=== PATIENT | female | born 1985 | race Caucasian/White ===

== ENCOUNTER 2017-02-15 02:05 | Emergency (ER) | payer OTHER ==
[~2017-02-15] VITALS: Ht 157.5 cm; Wt 46.6 kg
[~2017-02-15 02:05] MED LIST: AFEDITAB CR60 MG PO; ALPRAZOLAM0.5 MG PO; AMITRIPTYLINE H50 MG PO; AMLOD-VALSA-HC1 EAC1 PO; AMLODIPINE BESY10 MG PO; ANTACID500 MG PO; APRESOLINE10 MG PO; APRESOLINE100 MG PO; APRESOLINE25 MG PO; APRESOLINE50 MG PO; BACLOFEN10 MG PO; BACTRIM,SEPT1 TABLET PO; BENTYL10 MG PO; BUSPAR15 MG PO; BUSPIRONE HCL7.5 MG PO; CALCITRIOL0.25 MCG PO; CALCITRIOL0.5 MCG PO; CALCIUM 500 MG1 EACH PO; CALCIUM ACETAT667 MG PO; CALCIUM500 M4 PO; CATAPRES-TTS 31 EACH TD; CATAPRES0.3 MG PO; CIPRO500 MG PO; CLONIDINE HCL0.1 MG PO; CLONIDINE HCL0.2 MG PO; CLONIDINE HCL0.3 MG PO; CLONIDINE1 EAC1 TD; CLONIDINE1 EAC2 TD; COMPAZINE10 MG PO; COMPAZINE5 MG PO; COUMADIN5 MG PO; COZAAR100 MG PO; DICYCLOMINE HCL10 MG PO; DILAUDID2 MG PO; ELAVIL50 MG PO; EMLA 30 GM30 GM TP; EMLA CREAM TP; ENDOCET 5-3251 EACH PO; EXTRA STRENGTH500 M1 PO; FLUCONAZOLE150 MG PO; HALDOL5 MG PO; HECTOROL4 MCG/2 M1 IV; HYDRALAZINE HCL10 MG PO; HYDRALAZINE HCL50 MG PO; HYDROMORPHONE HC2 MG PO; INSULIN PUMP SCCONT; KEFLEX500 MG PO; KEPPRA500 MG PO; KRISTALOSE20 GM PO; LABETALOL HCL200 MG PO; LAMICTAL200 MG PO; LAMOTRIGINE200 MG PO; LEVETIRACETAM500 MG PO; LIORESAL10 MG PO; LONITEN2.5 MG PO; LOSARTAN POTAS100 MG PO; METOCLOPRAMIDE10 MG PO; MINOXIDIL2.5 MG PO; NEPHRO-VITE,1 TABLET PO; NICORELIEF4 MG BC; NICOTINE PATCH1 EACH TD; NIFEDIPINE ER60 MG PO; NIFEDIPINE ER90 MG PO; NORMODYNE,TRAN200 MG PO; NORVASC10 MG PO; OFLOXACIN10 M1 BOTH EYES; OMEPRAZOLE40 M1 PO; ONDANSETRON HCL4 MG PO; PERCOCET 5/31 TABLET PO; PREDNISONE10 MG PO; PRILOSEC40 MG PO; PROCARDIA XL90 MG PO; PROCHLORPERAZIN10 MG PO; PROMETHAZINE HC25 M1 PO; PROMETHAZINE12.5 M1 PO; PROVENTIL HFA6.7 GM IH; REGLAN10 MG PO; RENVELA800 MG PO; SENNA8.6 MG PO; SENNA8.8 MG/5 M PO; SENOKOT,SENN1 TABLET PO; SENSIPAR30 MG PO; SENSIPAR60 MG PO; SIMVASTATIN10 MG PO; SIMVASTATIN20 MG PO; TAMSULOSIN HCL0.4 MG PO; TRANDATE200 MG PO; TUMS500 MG PO; TYLENOL EXTRA500 MG PO; TYLENOL PO; VELPHORO500 MG PO; VENOFER100 MG/5 M IV; VENTOLIN HFA18 GM IH; VIMPAT100 MG PO; VIMPAT150 MG PO; VIMPAT50 MG PO; VITAMIN D-32000 UNI2 PO; XANAX0.5 MG PO; ZOCOR20 MG PO; ZOFRAN4 MG PO; ZOFRAN8 MG PO; ZONISAMIDE100 MG PO; ZUPLENZ8 MG PO
[2017-02-15 02:10] VITALS: BP 175/112
[2017-02-15 02:43] LABS: HEMATOCRIT 21.7 % (36.0-46.0); MCH 30.3 PG (29.0-34.0); MCHC 33.2 G/DL (30.0-36.0); MCV 91.2 FL (83-99); MEAN PLAT.VOLUME 8.1 uM^3 (9.5-12.4); PLATELET COUNT 175 K/uL (156-360); RBC DIS.WIDTH-CV 18.6 % (11.8-14.6); RBC DIS.WIDTH-SD 62.3 % (39-53); RED BLOOD COUNT 2.38 M/uL (3.80-5.20); WHITE BLOOD COUNT 7.5 K/uL (4.1-10.2)
[2017-02-15 02:49] LABS: INTER. NORMALIZED RATIO 1.2; PROTHROMBIN TIME 13.6 SEC (10.2-12.9)
[2017-02-15 02:52] LABS: PTT 33.5 SEC (25-37)
[2017-02-15 02:54] LABS: CHLORIDE 100 mEq/L (99-109); POTASSIUM 4.1 mEq/L (3.7-5.4); SODIUM 139 mEq/L (136-147)
[2017-02-15 02:56] LABS: GLUCOSE 126 mg/dL (70-99)
[2017-02-15 02:57] LABS: ANION GAP 12 MEQ/L (2-14)
[2017-02-15 02:58] LABS: TOTAL BILIRUBIN 0.9 mg/dL (0.0-1.0)
[2017-02-15 02:59] LABS: SERUM ETHYL ALCOHOL < 10 mg/dL
[2017-02-15 03:00] LABS: ALKALINE PHOSPHATASE 101 IU/L (3-129); GFR ESTIMATE (CALCULATED) 9 mL/min/
[2017-02-15 03:01] LABS: UREA NITROGEN (BUN) 27 mg/dL (9-23)
[2017-02-15 03:03] LABS: LIPASE 15 U/L (1.0-51.0)
[2017-02-15] MEDS ORDERED: ZOFRAN4 MG PO (03:45)
== END 2017-02-15 06:33 | disposition home or self-care (01) ==
LOC: EME 02:05
PROVIDERS: Emergency Medicine
DX: R10.9 Unspecified abdominal pain (principal); E78.5 Hyperlipidemia, unspecified; K21.9 Gastro-esophageal reflux disease without esophagitis; D64.9 Anemia, unspecified; N18.9 Chronic kidney disease, unspecified; Z94.0 Kidney transplant status; Z99.2 Dependence on renal dialysis; F17.200 Nicotine dependence, unspecified, uncomplicated
CPT/HCPCS: 74176; 80053; 81003; 83690; 85027; 85610; 85730; 99281; 99284; G0480; J1630; J7030

== ENCOUNTER 2017-06-04 01:11 | Inpatient (IN) | payer OTHER ==
[2017-06-04] VITALS (17 sets, daily range): BP systolic 126–189; BP diastolic 67–138
[~2017-06-04] VITALS: Ht 157.5 cm; Wt 40.6 kg
[~2017-06-04 01:11] MED LIST changes: +AVENTYL,PAMELOR25 MG PO; +LABETALOL HCL300 MG PO; +LIDOCAINE5 GM TP; +ONDANSETRON HCL8 MG PO; +OXYCODONE HCL5 MG PO; +PEPCID20 MG PO; +PHOSLYRA667 MG/5 M PO
[2017-06-04 01:45] LABS: HEMATOCRIT 26.5 % (36.0-46.0); MCH 31.5 PG (29.0-34.0); MCHC 33.2 G/DL (30.0-36.0); MEAN PLAT.VOLUME 9.2 uM^3 (9.5-12.4); RBC DIS.WIDTH-CV 15.7 % (11.8-14.6); RBC DIS.WIDTH-SD 54.4 % (39-53); RED BLOOD COUNT 2.79 M/uL (3.80-5.20); WHITE BLOOD COUNT 11.7 K/uL (4.1-10.2)
[2017-06-04 01:49] LABS: PLATELET COUNT 286 K/uL (156-360)
[2017-06-04 01:54] LABS: CHLORIDE 83 mEq/L (99-109); POTASSIUM 5.5 mEq/L (3.7-5.4); SODIUM 136 mEq/L (136-147)
[2017-06-04 01:56] LABS: GLUCOSE 133 mg/dL (70-99)
[2017-06-04 01:57] LABS: ANION GAP 26 MEQ/L (2-14)
[2017-06-04 01:58] LABS: TOTAL BILIRUBIN 1.5 mg/dL (0.0-1.0)
[2017-06-04 02:00] LABS: ALKALINE PHOSPHATASE 102 IU/L (3-129); GFR ESTIMATE (CALCULATED) 5 mL/min/
[2017-06-04 02:01] LABS: UREA NITROGEN (BUN) 81 mg/dL (9-23)
[2017-06-04 02:08] LABS: QUANTITATIVE HCG < 4.0 MIU/ML
[2017-06-04 02:16] LABS: MAGNESIUM 2.6 mg/dL (1.3-2.7)
[2017-06-04 02:23] LABS: INTER. NORMALIZED RATIO 1.3; PROTHROMBIN TIME 14.5 SEC (10.2-12.9)
[2017-06-04 15:06] LABS: METH RESISTANT S AUREUS PCR NEGATIVE (NEGATIVE)
[2017-06-04 15:15] LABS: PROBE CHECK PASS; SPECIMEN PROCESSING CONTROL PASS
[2017-06-05] VITALS (23 sets, daily range): BP systolic 119–202; BP diastolic 76–138
[2017-06-05 06:48] LABS: ANION GAP 17 MEQ/L (2-14); CHLORIDE 91 MEQ/L (99-109); GFR ESTIMATE (CALCULATED) 11 mL/min/; GLUCOSE 80 mg/dL (70-99); POTASSIUM 4.1 MEQ/L (3.7-5.4); SAMPLE HEMOLYSIS CHECK 0; SAMPLE ICTERIC CHECK 0; SAMPLE LIPEMIA CHECK 0; SODIUM 136 MEQ/L (136-147); UREA NITROGEN (BUN) 39 mg/dL (9-23)
[2017-06-05 09:32] LABS: INTER. NORMALIZED RATIO 1.2; PROTHROMBIN TIME 13.9 SEC (10.2-12.9)
[2017-06-05 11:42] LABS: HBSG INDEX 0.27
[2017-06-06 06:34] LABS: ANION GAP 15 MEQ/L (2-14); CHLORIDE 88 MEQ/L (99-109); GFR ESTIMATE (CALCULATED) 7 mL/min/; GLUCOSE 89 mg/dL (70-99); POTASSIUM 4.3 MEQ/L (3.7-5.4); SAMPLE HEMOLYSIS CHECK 0; SAMPLE ICTERIC CHECK 0; SAMPLE LIPEMIA CHECK 0; SODIUM 131 MEQ/L (136-147); UREA NITROGEN (BUN) 59 mg/dL (9-23)
[2017-06-06 07:51] VITALS: BP 94/53
[2017-06-06 08:59] VITALS: BP 124/64
[2017-06-06 11:20] VITALS: BP 127/61
== END 2017-06-06 14:39 | disposition home or self-care (01) | DRG 304 ==
LOC: EME 01:11 → 4WEST 07:29 → EDOF 07:29 → ENRESERV 07:34 → 4WEST 13:36 → ENRESERV 06-05 16:33 → 5EAST 06-05 20:22 → ENPENDDIS 06-06 → 5EAST 06-06 14:39
PROVIDERS: Family Medicine; Internal Medicine Critical Care Medicine; Internal Medicine Nephrology; Surgery
PROC: 5A1D70Z Performance of Urinary Filtration, Intermittent, Less than 6 Hours Per Day (ICD-10-PCS; principal; 2017-06-04)
DX: I16.1 Hypertensive emergency (principal); N18.6 End stage renal disease; T86.12 Kidney transplant failure; M31.7 Microscopic polyangiitis; F33.9 Major depressive disorder, recurrent, unspecified; F17.210 Nicotine dependence, cigarettes, uncomplicated; I12.0 Hypertensive chronic kidney disease with stage 5 chronic kidney disease or end stage renal disease; Y83.0 Surgical operation with transplant of whole organ as the cause of abnormal reaction of the patient, or of later complication, without mention of misadventure at the time of the procedure; D63.1 Anemia in chronic kidney disease; E83.39 Other disorders of phosphorus metabolism; E11.22 Type 2 diabetes mellitus with diabetic chronic kidney disease; D50.9 Iron deficiency anemia, unspecified; K31.84 Gastroparesis; E11.43 Type 2 diabetes mellitus with diabetic autonomic (poly)neuropathy; E78.5 Hyperlipidemia, unspecified; G89.29 Other chronic pain; I48.91 Unspecified atrial fibrillation; I51.7 Cardiomegaly; I87.8 Other specified disorders of veins; K21.9 Gastro-esophageal reflux disease without esophagitis; F41.9 Anxiety disorder, unspecified; G43.909 Migraine, unspecified, not intractable, without status migrainosus; R00.0 Tachycardia, unspecified; R01.1 Cardiac murmur, unspecified; G40.909 Epilepsy, unspecified, not intractable, without status epilepticus; E86.0 Dehydration; E87.5 Hyperkalemia; Z99.2 Dependence on renal dialysis; Z91.15 Patient's noncompliance with renal dialysis; Z88.1 Allergy status to other antibiotic agents; Z86.718 Personal history of other venous thrombosis and embolism; Z83.3 Family history of diabetes mellitus; Z90.49 Acquired absence of other specified parts of digestive tract
CPT/HCPCS: 70450; 71010; 80048; 80053; 83735; 84100; 84702; 85027; 85610; 87340; 87641; 93005; 99281; 99285; C1753; J0360; J0610; J1644; J2270; J2405; J3010; J7050

== ENCOUNTER 2017-06-09 11:38 | Inpatient (IN) | payer OTHER ==
[~2017-06-09] VITALS: Ht 157.5 cm; Wt 43.1 kg
[2017-06-09 15:06] LABS: EOSINOPHIL (%) 1.8 % (0-5); EOSINOPHIL COUNT 0.1 K/uL (0-0.3); HEMATOCRIT 21.9 % (36.0-46.0); IMMATURE GRANULOCYTE (%) 0.3 % (0.0-0.7); INSTRUMENT ABS NEUTROPHIL CT 4.4 K/uL; LYMPHOCYTE COUNT 1.2 K/uL (1.0-2.8); MCHC 32.9 G/DL (30.0-36.0); MCV 94.4 FL (83-99); MONOCYTE (%) 9.6 % (3-12); MONOCYTE COUNT 0.6 K/uL (0-0.8); NEUTROPHIL (%) 69.2 % (45-76); NEUTROPHIL COUNT 4.4 K/uL (1.8-6.4); RBC DIS.WIDTH-CV 15.2 % (11.8-14.6); RBC DIS.WIDTH-SD 52.3 % (39-53); RED BLOOD COUNT 2.32 M/uL (3.80-5.20); WHITE BLOOD COUNT 6.3 K/uL (4.1-10.2)
[2017-06-09 15:38] LABS: ALKALINE PHOSPHATASE 106 IU/L (3-129); ANION GAP 22 MEQ/L (2-14); CHLORIDE 86 MEQ/L (99-109); GLUCOSE 82 mg/dL (70-99); SAMPLE HEMOLYSIS CHECK 0; SAMPLE ICTERIC CHECK 0; SAMPLE LIPEMIA CHECK 0; SODIUM 134 MEQ/L (136-147); TOTAL BILIRUBIN 0.6 MG/DL (0.0-1.0)
[2017-06-09 15:50] LABS: HEMATOLOGY COMMENT 1 SN; MEAN PLAT.VOLUME 9.3 uM^3 (9.5-12.4); PLAT.SUFFICIENCY ADEQUATE
[2017-06-09 15:51] LABS: PLATELET COUNT 186 K/uL (156-360)
[2017-06-09 15:56] LABS: GFR ESTIMATE (CALCULATED) 4 mL/min/; POTASSIUM 6.3 MEQ/L (3.7-5.4); UREA NITROGEN (BUN) 94 mg/dL (9-23)
[2017-06-10] VITALS (22 sets, daily range): BP systolic 125–206; BP diastolic 76–118
[2017-06-10 04:54] LABS: METH RESISTANT S AUREUS PCR NEGATIVE (NEGATIVE)
[2017-06-10 04:55] LABS: PROBE CHECK PASS; SPECIMEN PROCESSING CONTROL PASS
[2017-06-10 06:07] LABS: HEMATOCRIT 21.3 % (36.0-46.0); MCH 31.6 PG (29.0-34.0); MCHC 33.3 G/DL (30.0-36.0); MCV 94.7 FL (83-99); PLATELET COUNT 200 K/uL (156-360); RBC DIS.WIDTH-SD 52.5 % (39-53); RED BLOOD COUNT 2.25 M/uL (3.80-5.20); WHITE BLOOD COUNT 7.3 K/uL (4.1-10.2)
[2017-06-10 06:34] LABS: ANION GAP 26 MEQ/L (2-14); CHLORIDE 87 MEQ/L (99-109); GFR ESTIMATE (CALCULATED) 3 mL/min/; GLUCOSE 85 mg/dL (70-99); MAGNESIUM 2.5 mg/dl (1.3-2.7); POTASSIUM 6.2 MEQ/L (3.7-5.4); SAMPLE HEMOLYSIS CHECK 0; SAMPLE ICTERIC CHECK 0; SAMPLE LIPEMIA CHECK 0; SODIUM 136 MEQ/L (136-147); UREA NITROGEN (BUN) 100 mg/dL (9-23)
[2017-06-10] MEDS ORDERED: NIFEDIPINE ER60 MG PO (14:21)
[2017-06-10] MEDS ORDERED: HYDRALAZINE HCL25 MG PO (14:21)
[2017-06-10] MEDS ORDERED: XANAX0.5 MG PO (14:22)
[2017-06-10] MEDS ORDERED: LAMICTAL200 MG PO (14:22)
[2017-06-10] MEDS ORDERED: OMEPRAZOLE40 M1 PO (14:22)
[2017-06-10] MEDS ORDERED: ZOFRAN8 MG PO (14:22)
[2017-06-10] MEDS ORDERED: NORMODYNE,TRAN300 MG PO (14:23)
[2017-06-10] MEDS ORDERED: COMPAZINE5 MG PO (14:23)
[2017-06-10] MEDS ORDERED: NORTRIPTYLINE H25 MG PO (14:24)
[2017-06-10] MEDS ORDERED: PHOSLYRA667 MG/5 M PO (14:24)
[2017-06-10] MEDS ORDERED: COZAAR100 MG PO (14:25)
[2017-06-10] MEDS ORDERED: WARFARIN SODIUM5 MG PO (14:25)
[2017-06-10] MEDS ORDERED: PEPCID20 MG PO (14:25)
[2017-06-10] MEDS ORDERED: ROXICODONE5 MG PO (14:26)
[2017-06-11] VITALS (21 sets, daily range): BP systolic 0–165; BP diastolic 0–103
[2017-06-11 15:32] LABS: ANION GAP 12 MEQ/L (2-14); GLUCOSE 126 mg/dL (70-99); SAMPLE HEMOLYSIS CHECK 0; SAMPLE ICTERIC CHECK 0; SAMPLE LIPEMIA CHECK 0; SODIUM 136 MEQ/L (136-147)
[2017-06-11 15:41] LABS: CHLORIDE 97 MEQ/L (99-109); GFR ESTIMATE (CALCULATED) 9 mL/min/; POTASSIUM 4.1 MEQ/L (3.7-5.4); UREA NITROGEN (BUN) 24 mg/dL (9-23)
[2017-06-12] VITALS (16 sets, daily range): BP systolic 0–148; BP diastolic 0–104
[2017-06-12 11:10] LABS: HBSG INDEX 0.21
== END 2017-06-12 16:53 | disposition left against medical advice (07) | DRG 304 ==
LOC: EME 11:38 → 4WEST 21:49 → EDOF 21:49 → 4WEST 21:49 → ENRESERV 21:51 → 4WEST 06-10 03:31 → ENRESERV 06-12 15:09 → CANRESERV 06-12 15:36 → ENRESERV 06-12 15:36 → 4WEST 06-12 16:53
PROVIDERS: Emergency Medicine; Internal Medicine Nephrology; Obstetrics & Gynecology
PROC: 5A1D70Z Performance of Urinary Filtration, Intermittent, Less than 6 Hours Per Day (ICD-10-PCS; principal; 2017-06-10)
DX: I16.0 Hypertensive urgency (principal); N18.6 End stage renal disease; I16.1 Hypertensive emergency; M31.7 Microscopic polyangiitis; E11.43 Type 2 diabetes mellitus with diabetic autonomic (poly)neuropathy; R64 Cachexia; F33.9 Major depressive disorder, recurrent, unspecified; R57.9 Shock, unspecified; T86.12 Kidney transplant failure; Z68.1 Body mass index [BMI] 19.9 or less, adult; Z94.0 Kidney transplant status; K31.84 Gastroparesis; I48.2 Chronic atrial fibrillation; I12.0 Hypertensive chronic kidney disease with stage 5 chronic kidney disease or end stage renal disease; G89.29 Other chronic pain; E87.5 Hyperkalemia; E78.5 Hyperlipidemia, unspecified; E11.22 Type 2 diabetes mellitus with diabetic chronic kidney disease; D63.1 Anemia in chronic kidney disease; G43.A0 Cyclical vomiting, in migraine, not intractable; F41.9 Anxiety disorder, unspecified; K21.9 Gastro-esophageal reflux disease without esophagitis; G43.909 Migraine, unspecified, not intractable, without status migrainosus; F17.210 Nicotine dependence, cigarettes, uncomplicated; Z91.15 Patient's noncompliance with renal dialysis; Z79.4 Long term (current) use of insulin; Z90.49 Acquired absence of other specified parts of digestive tract; Z99.2 Dependence on renal dialysis; Z91.19 Patient's noncompliance with other medical treatment and regimen; Z83.3 Family history of diabetes mellitus
CPT/HCPCS: 71010; 80048; 80053; 80069; 83735; 84100; 85025; 85027; 86850; 86900; 86901; 87340; 87641; 93005; 99281; 99285; C1751; C1753; J0360; J0610; J0881; J1270; J1630; J1756; J2270; J2405; J7050; S0028

== ENCOUNTER 2017-06-16 15:11 | Inpatient (IN) | payer OTHER ==
[~2017-06-16] VITALS: Ht 157.5 cm; Wt 49.3 kg
[~2017-06-16 15:11] MED LIST changes: +HYDRALAZINE HCL25 MG PO; +NORMODYNE,TRAN300 MG PO; +NORTRIPTYLINE H25 MG PO; +ROXICODONE5 MG PO; +WARFARIN SODIUM5 MG PO
[2017-06-16 18:15] LABS: HEMATOCRIT 19.6 % (36.0-46.0); MCH 31.5 PG (29.0-34.0); MCHC 32.1 G/DL (30.0-36.0); MEAN PLAT.VOLUME 8.7 uM^3 (9.5-12.4); PLATELET COUNT 235 K/uL (156-360); RBC DIS.WIDTH-CV 15.1 % (11.8-14.6); RBC DIS.WIDTH-SD 53.6 % (39-53); WHITE BLOOD COUNT 8.4 K/uL (4.1-10.2)
[2017-06-16 18:17] LABS: CHLORIDE 91 mEq/L (99-109); SODIUM 142 mEq/L (136-147)
[2017-06-16 18:20] LABS: GLUCOSE 104 mg/dL (70-99)
[2017-06-16 18:21] LABS: ANION GAP 11 MEQ/L (2-14)
[2017-06-16 18:22] LABS: TOTAL BILIRUBIN 0.5 mg/dL (0.0-1.0)
[2017-06-16 18:23] LABS: ALKALINE PHOSPHATASE 102 IU/L (3-129)
[2017-06-16 18:27] LABS: LIPASE 9 U/L (1.0-51.0)
[2017-06-16 18:33] LABS: QUANTITATIVE HCG < 4.0 MIU/ML
[2017-06-16 18:35] LABS: GFR ESTIMATE (CALCULATED) 32 mL/min/; POTASSIUM 3.1 mEq/L (3.7-5.4); UREA NITROGEN (BUN) 4 mg/dL (9-23)
[2017-06-16 20:42] VITALS: BP 245/129
[2017-06-16 21:01] VITALS: BP 235/122
[2017-06-16 22:01] VITALS: BP 224/130
[2017-06-16 23:01] VITALS: BP 236/128
[2017-06-17] VITALS (10 sets, daily range): BP systolic 172–209; BP diastolic 90–120
[2017-06-17 01:55] LABS: INTER. NORMALIZED RATIO 1.2; PROTHROMBIN TIME 13.1 SEC (10.2-12.9)
[2017-06-17 10:55] LABS: IRON 62 MCG/DL (35-150)
[2017-06-17 18:39] LABS: HEMATOCRIT 24.8 % (36.0-46.0); MCH 30.6 PG (29.0-34.0); MCHC 31.9 G/DL (30.0-36.0); MCV 96.1 FL (83-99); MEAN PLAT.VOLUME 8.8 uM^3 (9.5-12.4); PLATELET COUNT 197 K/uL (156-360); RBC DIS.WIDTH-SD 55.8 % (39-53); WHITE BLOOD COUNT 6.9 K/uL (4.1-10.2)
[2017-06-17 18:46] LABS: RED BLOOD COUNT 2.58 M/uL (3.80-5.20)
[2017-06-18 04:43] VITALS: BP 158/74
[2017-06-18 07:47] VITALS: BP 165/94
[2017-06-18 12:35] VITALS: BP 170/73
[2017-06-18 13:35] LABS: HEMATOCRIT 23.4 % (36.0-46.0); MCH 31.1 PG (29.0-34.0); MCHC 32.5 G/DL (30.0-36.0); MCV 95.9 FL (83-99); PLATELET COUNT 178 K/uL (156-360); RBC DIS.WIDTH-CV 15.8 % (11.8-14.6); RBC DIS.WIDTH-SD 53.9 % (39-53); RED BLOOD COUNT 2.44 M/uL (3.80-5.20); WHITE BLOOD COUNT 5.9 K/uL (4.1-10.2)
[2017-06-18 13:50] LABS: ANION GAP 11 MEQ/L (2-14); CHLORIDE 90 MEQ/L (99-109); POTASSIUM 3.7 MEQ/L (3.7-5.4); SAMPLE HEMOLYSIS CHECK 0; SAMPLE ICTERIC CHECK 0; SAMPLE LIPEMIA CHECK 0
[2017-06-18 13:55] LABS: GLUCOSE 118 mg/dL (70-99); UREA NITROGEN (BUN) 19 mg/dL (9-23)
[2017-06-18 14:20] LABS: GFR ESTIMATE (CALCULATED) 11 mL/min/; SODIUM 134 MEQ/L (136-147)
[2017-06-18 15:12] LABS: INTER. NORMALIZED RATIO 1.3; PROTHROMBIN TIME 14.4 SEC (10.2-12.9)
[2017-06-18 17:20] VITALS: BP 166/91
[2017-06-18 17:47] VITALS: BP 164/76
== END 2017-06-18 18:03 | disposition home health service (06) | DRG 304 ==
LOC: EME 15:11 → EDOF 22:33 → ENRESERV 22:34 → CANRESERV 22:34 → EDOF 22:39 → 4EAST 22:39 → EDOF 22:39 → ENRESERV 22:41 → 4EAST 06-17 02:24
PROVIDERS: Hospitalist; Internal Medicine
PROC: 5A1D70Z Performance of Urinary Filtration, Intermittent, Less than 6 Hours Per Day (ICD-10-PCS; principal; 2017-06-18)
DX: I16.0 Hypertensive urgency (principal); N18.6 End stage renal disease; J81.0 Acute pulmonary edema; N25.81 Secondary hyperparathyroidism of renal origin; E87.1 Hypo-osmolality and hyponatremia; R18.8 Other ascites; T86.12 Kidney transplant failure; F33.9 Major depressive disorder, recurrent, unspecified; I12.0 Hypertensive chronic kidney disease with stage 5 chronic kidney disease or end stage renal disease; K31.84 Gastroparesis; G89.29 Other chronic pain; I48.2 Chronic atrial fibrillation; E11.43 Type 2 diabetes mellitus with diabetic autonomic (poly)neuropathy; E11.22 Type 2 diabetes mellitus with diabetic chronic kidney disease; D63.1 Anemia in chronic kidney disease; Y83.0 Surgical operation with transplant of whole organ as the cause of abnormal reaction of the patient, or of later complication, without mention of misadventure at the time of the procedure; F17.210 Nicotine dependence, cigarettes, uncomplicated; E83.39 Other disorders of phosphorus metabolism; K21.9 Gastro-esophageal reflux disease without esophagitis; K29.70 Gastritis, unspecified, without bleeding; K52.89 Other specified noninfective gastroenteritis and colitis; G40.909 Epilepsy, unspecified, not intractable, without status epilepticus; E87.6 Hypokalemia; E78.5 Hyperlipidemia, unspecified; F41.9 Anxiety disorder, unspecified; Z99.2 Dependence on renal dialysis; Z91.14 Patient's other noncompliance with medication regimen; Z79.01 Long term (current) use of anticoagulants; Z79.891 Long term (current) use of opiate analgesic; Z86.718 Personal history of other venous thrombosis and embolism; Z88.8 Allergy status to other drugs, medicaments and biological substances; Z91.19 Patient's noncompliance with other medical treatment and regimen; Z90.49 Acquired absence of other specified parts of digestive tract; Z88.1 Allergy status to other antibiotic agents; Z83.3 Family history of diabetes mellitus
CPT/HCPCS: 74020; 74176; 80048; 80053; 81003; 83540; 83690; 84100; 84466; 84702; 85027; 85610; 86850; 86900; 86901; 86920; 99281; 99285; C9113; J0360; J0881; J1630; J2060; J2270; J2405; J7030; J7050; P9016

== ENCOUNTER 2017-06-24 12:19 | Inpatient (IN) | payer OTHER ==
[~2017-06-24] VITALS: Ht 157.5 cm; Wt 43.7 kg
[2017-06-24 15:13] LABS: CHLORIDE 92 mEq/L (99-109); POTASSIUM 4.4 mEq/L (3.7-5.4)
[2017-06-24 15:14] LABS: SODIUM 142 mEq/L (136-147)
[2017-06-24 15:15] LABS: GLUCOSE 124 mg/dL (70-99)
[2017-06-24 15:16] LABS: ANION GAP 13 MEQ/L (2-14)
[2017-06-24 15:17] LABS: TOTAL BILIRUBIN 0.7 mg/dL (0.0-1.0)
[2017-06-24 15:18] LABS: ALKALINE PHOSPHATASE 110 IU/L (3-129)
[2017-06-24 15:19] LABS: GFR ESTIMATE (CALCULATED) 13 mL/min/
[2017-06-24 15:20] LABS: UREA NITROGEN (BUN) 16 mg/dL (9-23)
[2017-06-24 15:22] LABS: LIPASE 6 U/L (1.0-51.0)
[2017-06-24 15:28] LABS: TROP-I INTERPRETATION NEGATIVE; TROPONIN-I < 0.01 ng/mL (0.0-0.30)
[2017-06-24 15:29] LABS: EOSINOPHIL (%) 1.2 % (0-5); EOSINOPHIL COUNT 0.1 K/uL (0-0.3); HEMATOCRIT 27.3 % (36.0-46.0); IMMATURE GRANULOCYTE (%) 0.5 % (0.0-0.7); INSTRUMENT ABS NEUTROPHIL CT 4.3 K/uL; LYMPHOCYTE COUNT 0.9 K/uL (1.0-2.8); MCH 30.8 PG (29.0-34.0); MCHC 31.1 G/DL (30.0-36.0); MCV 98.9 FL (83-99); MONOCYTE (%) 8.9 % (3-12); MONOCYTE COUNT 0.5 K/uL (0-0.8); NEUTROPHIL (%) 72.8 % (45-76); NEUTROPHIL COUNT 4.3 K/uL (1.8-6.4); NRBC (%) 0.3 /100 WBC (0-0); PLATELET COUNT 211 K/uL (156-360); RBC DIS.WIDTH-CV 16.7 % (11.8-14.6); RBC DIS.WIDTH-SD 59.3 % (39-53); RED BLOOD COUNT 2.76 M/uL (3.80-5.20); WHITE BLOOD COUNT 5.9 K/uL (4.1-10.2)
[2017-06-24 15:54] LABS: INTER. NORMALIZED RATIO 1.2; PROTHROMBIN TIME 13.2 SEC (10.2-12.9)
[2017-06-24 15:57] LABS: PTT 25.3 SEC (25-37)
[2017-06-25] VITALS (16 sets, daily range): BP systolic 109–203; BP diastolic 67–126
[2017-06-25 02:44] LABS: METH RESISTANT S AUREUS PCR NEGATIVE (NEGATIVE)
[2017-06-25 02:58] LABS: PROBE CHECK PASS; SPECIMEN PROCESSING CONTROL PASS
[2017-06-25 05:44] LABS: INTER. NORMALIZED RATIO 1.1; PROTHROMBIN TIME 13.1 SEC (10.2-12.9)
[2017-06-25 14:33] LABS: EOSINOPHIL (%) 2.7 % (0-5); EOSINOPHIL COUNT 0.1 K/uL (0-0.3); HEMATOCRIT 22.9 % (36.0-46.0); IMMATURE GRANULOCYTE (%) 0.2 % (0.0-0.7); INSTRUMENT ABS NEUTROPHIL CT 3.3 K/uL; LYMPHOCYTE COUNT 1.2 K/uL (1.0-2.8); MONOCYTE (%) 9.4 % (3-12); MONOCYTE COUNT 0.5 K/uL (0-0.8); NEUTROPHIL (%) 63.9 % (45-76); NEUTROPHIL COUNT 3.3 K/uL (1.8-6.4); PLATELET COUNT 197 K/uL (156-360); RBC DIS.WIDTH-CV 16.9 % (11.8-14.6); RED BLOOD COUNT 2.29 M/uL (3.80-5.20); WHITE BLOOD COUNT 5.1 K/uL (4.1-10.2)
[2017-06-25 14:50] LABS: ANION GAP 9 MEQ/L (2-14); CHLORIDE 91 MEQ/L (99-109); GFR ESTIMATE (CALCULATED) 10 mL/min/; GLUCOSE 107 mg/dL (70-99); POTASSIUM 4.6 MEQ/L (3.7-5.4); SAMPLE HEMOLYSIS CHECK 0; SAMPLE ICTERIC CHECK 0; SAMPLE LIPEMIA CHECK 0; SODIUM 136 MEQ/L (136-147); UREA NITROGEN (BUN) 22 mg/dL (9-23)
[2017-06-26 05:44] VITALS: BP 170/87
[2017-06-26 06:48] LABS: INTER. NORMALIZED RATIO 1.2; PROTHROMBIN TIME 13.5 SEC (10.2-12.9)
[2017-06-26 07:53] VITALS: BP 123/67
[2017-06-26 11:05] VITALS: BP 157/91
[2017-06-26] MEDS ORDERED: ROXICODONE5 MG PO (11:41)
== END 2017-06-26 13:02 | disposition home or self-care (01) | DRG 304 ==
LOC: EME 12:19 → 4WEST 06-25 00:01 → EDOF 06-25 00:01 → ENRESERV 06-25 00:04 → 4WEST 06-25 01:18 → CANRESERV 06-25 13:09 → ENRESERV 06-25 13:09 → 4WEST 06-25 15:58 → 3EAST 06-25 17:09
PROVIDERS: Internal Medicine; Internal Medicine Critical Care Medicine; Physician Assistant
PROC: 05HY33Z Insertion of Infusion Device into Upper Vein, Percutaneous Approach (ICD-10-PCS; principal; 2017-06-25)
DX: I16.1 Hypertensive emergency (principal); J81.0 Acute pulmonary edema; N18.6 End stage renal disease; I12.0 Hypertensive chronic kidney disease with stage 5 chronic kidney disease or end stage renal disease; F17.200 Nicotine dependence, unspecified, uncomplicated; E87.3 Alkalosis; K31.84 Gastroparesis; G40.909 Epilepsy, unspecified, not intractable, without status epilepticus; F41.9 Anxiety disorder, unspecified; J81.1 Chronic pulmonary edema; I48.91 Unspecified atrial fibrillation; D50.9 Iron deficiency anemia, unspecified; D63.1 Anemia in chronic kidney disease; N25.81 Secondary hyperparathyroidism of renal origin; G89.29 Other chronic pain; E78.5 Hyperlipidemia, unspecified; K21.9 Gastro-esophageal reflux disease without esophagitis; F32.9 Major depressive disorder, single episode, unspecified; Z99.2 Dependence on renal dialysis; Z83.3 Family history of diabetes mellitus; Z86.718 Personal history of other venous thrombosis and embolism; Z94.0 Kidney transplant status; Z91.14 Patient's other noncompliance with medication regimen
CPT/HCPCS: 71010; 71020; 74176; 80053; 80069; 81003; 83690; 84484; 85025; 85610; 85730; 87641; 93005; 99281; 99285; C1751; J0780; J0881; J1270; J1644; J1756; J2270; J2405; J7050

== ENCOUNTER 2017-06-30 15:27 | Inpatient (IN) | payer OTHER ==
[~2017-06-30] VITALS: Ht 144.8 cm; Wt 41.8 kg
[2017-06-30 18:27] LABS: HEMATOCRIT 24.5 % (36.0-46.0); MCH 30.8 PG (29.0-34.0); MCHC 31.4 G/DL (30.0-36.0); MEAN PLAT.VOLUME 8.5 uM^3 (9.5-12.4); PLATELET COUNT 201 K/uL (156-360); RBC DIS.WIDTH-CV 16.3 % (11.8-14.6); RBC DIS.WIDTH-SD 58.2 % (39-53); WHITE BLOOD COUNT 3.6 K/uL (4.1-10.2)
[2017-06-30 18:33] LABS: CHLORIDE 88 mEq/L (99-109); SODIUM 141 mEq/L (136-147)
[2017-06-30 18:35] LABS: GLUCOSE 86 mg/dL (70-99); POTASSIUM 3.3 mEq/L (3.7-5.4)
[2017-06-30 18:36] LABS: ANION GAP 13 MEQ/L (2-14)
[2017-06-30 19:16] LABS: GFR ESTIMATE (CALCULATED) 27 mL/min/; UREA NITROGEN (BUN) 6 mg/dL (9-23)
[2017-07-01 00:40] LABS: INTER. NORMALIZED RATIO 1.2; PROTHROMBIN TIME 13.6 SEC (10.2-12.9)
[2017-07-01 03:34] VITALS: BP 212/120
[2017-07-01 05:54] VITALS: BP 164/90
[2017-07-01 08:35] VITALS: BP 187/108
[2017-07-01 11:21] VITALS: BP 169/103
[2017-07-01 11:33] LABS: EOSINOPHIL (%) 1.3 % (0-5); EOSINOPHIL COUNT 0.1 K/uL (0-0.3); HEMATOCRIT 26.2 % (36.0-46.0); IMMATURE GRANULOCYTE (%) 0.2 % (0.0-0.7); INSTRUMENT ABS NEUTROPHIL CT 3.3 K/uL; MCH 31.3 PG (29.0-34.0); MCHC 31.7 G/DL (30.0-36.0); MCV 98.9 FL (83-99); MEAN PLAT.VOLUME 8.4 uM^3 (9.5-12.4); MONOCYTE (%) 16.8 % (3-12); MONOCYTE COUNT 0.9 K/uL (0-0.8); NEUTROPHIL (%) 62.4 % (45-76); NEUTROPHIL COUNT 3.3 K/uL (1.8-6.4); PLATELET COUNT 199 K/uL (156-360); RBC DIS.WIDTH-CV 16.8 % (11.8-14.6); RBC DIS.WIDTH-SD 61.5 % (39-53); RED BLOOD COUNT 2.65 M/uL (3.80-5.20); WHITE BLOOD COUNT 5.2 K/uL (4.1-10.2)
[2017-07-01 11:45] LABS: INTER. NORMALIZED RATIO 1.2; PROTHROMBIN TIME 13.3 SEC (10.2-12.9)
[2017-07-01 12:29] LABS: ALKALINE PHOSPHATASE 107 IU/L (3-129); AMYLASE 22 IU/L (1-118); ANION GAP 10 MEQ/L (2-14); CHLORIDE 87 MEQ/L (99-109); DIRECT BILIRUBIN 0.1 mg/dL (0.0-0.3); GFR ESTIMATE (CALCULATED) 14 mL/min/; POTASSIUM 3.6 MEQ/L (3.7-5.4); SAMPLE HEMOLYSIS CHECK 0; SAMPLE ICTERIC CHECK 0; SAMPLE LIPEMIA CHECK 0; SODIUM 136 MEQ/L (136-147); TOTAL BILIRUBIN 0.7 MG/DL (0.0-1.0); UREA NITROGEN (BUN) 11 mg/dL (9-23)
[2017-07-01 12:37] LABS: GLUCOSE 110 mg/dL (70-99)
[2017-07-01 16:41] VITALS: BP 177/97
[2017-07-01 19:45] VITALS: BP 179/101
[2017-07-02 03:10] VITALS: BP 180/98
[2017-07-02 06:29] VITALS: BP 170/95
[2017-07-02 07:31] VITALS: BP 193/109
[2017-07-02 09:20] LABS: HEMATOCRIT 28.9 % (36.0-46.0); MCH 30.5 PG (29.0-34.0); MCHC 31.5 G/DL (30.0-36.0); MEAN PLAT.VOLUME 8.6 uM^3 (9.5-12.4); PLATELET COUNT 232 K/uL (156-360); RBC DIS.WIDTH-CV 16.7 % (11.8-14.6); RBC DIS.WIDTH-SD 59.7 % (39-53); RED BLOOD COUNT 2.98 M/uL (3.80-5.20)
[2017-07-02 09:23] LABS: INTACT PARATHYROID HORMONE 675 pg/mL (10-69)
[2017-07-02 09:24] LABS: INTER. NORMALIZED RATIO 1.2; PROTHROMBIN TIME 13.3 SEC (10.2-12.9)
[2017-07-02 09:25] LABS: ANION GAP 11 MEQ/L (2-14); CHLORIDE 88 MEQ/L (99-109); GFR ESTIMATE (CALCULATED) 8 mL/min/; GLUCOSE 105 mg/dL (70-99); POTASSIUM 3.4 MEQ/L (3.7-5.4); SAMPLE HEMOLYSIS CHECK 0; SAMPLE ICTERIC CHECK 0; SAMPLE LIPEMIA CHECK 0; SODIUM 138 MEQ/L (136-147); UREA NITROGEN (BUN) 23 mg/dL (9-23)
[2017-07-02 12:47] VITALS: BP 199/128
[2017-07-02 15:19] VITALS: BP 173/98
[2017-07-03 00:09] VITALS: BP 179/108
[2017-07-03 05:36] LABS: EOSINOPHIL (%) 4.7 % (0-5); EOSINOPHIL COUNT 0.2 K/uL (0-0.3); HEMATOCRIT 29.9 % (36.0-46.0); IMMATURE GRANULOCYTE (%) 0.6 % (0.0-0.7); INSTRUMENT ABS NEUTROPHIL CT 1.5 K/uL; MCHC 30.8 G/DL (30.0-36.0); MCV 97.4 FL (83-99); MEAN PLAT.VOLUME 8.6 uM^3 (9.5-12.4); MONOCYTE (%) 20.7 % (3-12); MONOCYTE COUNT 0.7 K/uL (0-0.8); NEUTROPHIL (%) 43.1 % (45-76); NEUTROPHIL COUNT 1.5 K/uL (1.8-6.4); PLATELET COUNT 205 K/uL (156-360); RBC DIS.WIDTH-CV 16.9 % (11.8-14.6); RBC DIS.WIDTH-SD 60.4 % (39-53); RED BLOOD COUNT 3.07 M/uL (3.80-5.20); WHITE BLOOD COUNT 3.4 K/uL (4.1-10.2)
[2017-07-03 05:57] LABS: INTER. NORMALIZED RATIO 1.4; PROTHROMBIN TIME 16.4 SEC (10.2-12.9)
[2017-07-03 06:03] VITALS: BP 172/100
[2017-07-03 06:06] LABS: ANION GAP 11 MEQ/L (2-14); CHLORIDE 92 MEQ/L (99-109); GFR ESTIMATE (CALCULATED) 14 mL/min/; GLUCOSE 92 mg/dL (70-99); POTASSIUM 3.9 MEQ/L (3.7-5.4); SAMPLE HEMOLYSIS CHECK 0; SAMPLE ICTERIC CHECK 0; SAMPLE LIPEMIA CHECK 0; SODIUM 135 MEQ/L (136-147); UREA NITROGEN (BUN) 14 mg/dL (9-23)
[2017-07-03 07:35] VITALS: BP 160/110
== END 2017-07-03 10:15 | disposition left against medical advice (07) | DRG 391 ==
LOC: EME 15:27 → 4EAST 23:40 → EDOF 23:40 → ENRESERV 23:41 → 4EAST 07-01 03:00
PROVIDERS: Emergency Medicine; Hospitalist; Internal Medicine; Specialist
DX: K31.84 Gastroparesis (principal); I16.1 Hypertensive emergency; I12.0 Hypertensive chronic kidney disease with stage 5 chronic kidney disease or end stage renal disease; N18.6 End stage renal disease; N25.81 Secondary hyperparathyroidism of renal origin; T86.12 Kidney transplant failure; Y83.0 Surgical operation with transplant of whole organ as the cause of abnormal reaction of the patient, or of later complication, without mention of misadventure at the time of the procedure; D63.1 Anemia in chronic kidney disease; D50.9 Iron deficiency anemia, unspecified; E78.5 Hyperlipidemia, unspecified; F32.9 Major depressive disorder, single episode, unspecified; F41.9 Anxiety disorder, unspecified; G40.909 Epilepsy, unspecified, not intractable, without status epilepticus; G89.29 Other chronic pain; I48.91 Unspecified atrial fibrillation; K21.9 Gastro-esophageal reflux disease without esophagitis; G43.909 Migraine, unspecified, not intractable, without status migrainosus; F17.210 Nicotine dependence, cigarettes, uncomplicated; Z99.2 Dependence on renal dialysis; Z91.14 Patient's other noncompliance with medication regimen; Z86.718 Personal history of other venous thrombosis and embolism; Z79.891 Long term (current) use of opiate analgesic; Z79.01 Long term (current) use of anticoagulants; Z88.1 Allergy status to other antibiotic agents; Z91.15 Patient's noncompliance with renal dialysis
CPT/HCPCS: 71020; 80048; 80076; 81003; 82150; 82607; 82746; 83970; 85025; 85027; 85610; 87502; 99281; 99285; C1751; C9113; J0360; J0780; J0881; J1630; J1756; J2060; J2270; J2405; J3010; J7050

== ENCOUNTER 2017-07-05 16:06 | Emergency (ER) | payer OTHER ==
[~2017-07-05] VITALS: Ht 157.5 cm; Wt 44.0 kg
[2017-07-05 20:02] VITALS: BP 167/87
== END 2017-07-05 20:03 | disposition home or self-care (01) ==
LOC: EME 16:06
DX: S00.03XA Contusion of scalp, initial encounter (principal); V49.50XA Passenger injured in collision with unspecified motor vehicles in traffic accident, initial encounter; Y92.410 Unspecified street and highway as the place of occurrence of the external cause; I12.0 Hypertensive chronic kidney disease with stage 5 chronic kidney disease or end stage renal disease; N18.6 End stage renal disease; Z94.0 Kidney transplant status; Z99.2 Dependence on renal dialysis; Z79.01 Long term (current) use of anticoagulants; F17.200 Nicotine dependence, unspecified, uncomplicated
CPT/HCPCS: 70450; 99281; 99285

== ENCOUNTER 2017-07-08 07:44 | Emergency (ER) | payer OTHER ==
[~2017-07-08] VITALS: Ht 157.5 cm; Wt 44.0 kg
[2017-07-08 09:31] LABS: HEMATOCRIT 33.1 % (36.0-46.0); HEMOGLOBIN 10.6 G/DL (11.9-15.5); MCV 96.8 FL (83-99); RBC DIS.WIDTH-CV 17.9 % (11.8-14.6); RBC DIS.WIDTH-SD 62.3 % (39-53); RED BLOOD COUNT 3.42 M/uL (3.80-5.20); WHITE BLOOD COUNT 6.4 K/uL (4.1-10.2)
[2017-07-08 09:38] LABS: PLATELET COUNT 300 K/uL (156-360)
[2017-07-08 09:42] LABS: CHLORIDE 93 mEq/L (99-109); SODIUM 138 mEq/L (136-147)
[2017-07-08 09:44] LABS: GLUCOSE 97 mg/dL (70-99)
[2017-07-08 09:48] LABS: CREATININE 4.1 mg/dL (0.6-1.3); GFR ESTIMATE (CALCULATED) 13 mL/min/
[2017-07-08 09:49] LABS: UREA NITROGEN (BUN) 13 mg/dL (9-23)
[2017-07-08 12:40] VITALS: BP 247/130
== END 2017-07-08 12:40 | disposition home or self-care (01) ==
LOC: EME 07:44
PROVIDERS: Emergency Medicine
DX: R11.2 Nausea with vomiting, unspecified (principal); G89.29 Other chronic pain; N18.9 Chronic kidney disease, unspecified; Z99.2 Dependence on renal dialysis; Z94.0 Kidney transplant status; E78.5 Hyperlipidemia, unspecified; F17.200 Nicotine dependence, unspecified, uncomplicated; K21.9 Gastro-esophageal reflux disease without esophagitis; R56.9 Unspecified convulsions; F32.9 Major depressive disorder, single episode, unspecified; F41.9 Anxiety disorder, unspecified; Z79.01 Long term (current) use of anticoagulants; Z88.1 Allergy status to other antibiotic agents
CPT/HCPCS: 80048; 81003; 85027; 99281; 99285; J2270; J2405; J7030

== ENCOUNTER 2017-07-14 04:14 | Inpatient (IN) | payer OTHER ==
[~2017-07-14] VITALS: Ht 157.5 cm; Wt 48.8 kg
[2017-07-14] VITALS (20 sets, daily range): BP systolic 133–237; BP diastolic 86–182
[~2017-07-14 04:14] MED LIST changes: +COUMADIN7.5 MG PO; -WARFARIN SODIUM5 MG PO
[2017-07-14 06:37] LABS: CHLORIDE 94 mEq/L (99-109); MAGNESIUM 2.3 mg/dL (1.3-2.7); POTASSIUM 4.7 mEq/L (3.7-5.4); SODIUM 141 mEq/L (136-147)
[2017-07-14 06:39] LABS: GLUCOSE 108 mg/dL (70-99)
[2017-07-14 06:42] LABS: GFR ESTIMATE (CALCULATED) 9 mL/min/
[2017-07-14 06:46] LABS: CREATININE 5.5 mg/dL (0.6-1.3); UREA NITROGEN (BUN) 41 mg/dL (9-23)
[2017-07-14 06:51] LABS: HEMATOCRIT 30.4 % (36.0-46.0); HEMOGLOBIN 9.2 G/DL (11.9-15.5); MCH 30.2 PG (29.0-34.0); MCHC 30.3 G/DL (30.0-36.0); MCV 99.7 FL (83-99); RBC DIS.WIDTH-CV 17.2 % (11.8-14.6); RBC DIS.WIDTH-SD 62.6 % (39-53); RED BLOOD COUNT 3.05 M/uL (3.80-5.20); WHITE BLOOD COUNT 13.6 K/uL (4.1-10.2)
[2017-07-14 07:06] LABS: PLAT.SUFFICIENCY ADEQUATE
[2017-07-14 07:46] LABS: BASE EXCESS 11.4 mEq/L (-3 to +3); BICARBONATE 36.8 mEq/L (22-26); CARBOXY HGB 2.6 % (0-5); PO2 172 mm Hg (80-100); pH 7.45 (7.35-7.45)
[2017-07-14 07:48] LABS: COMMENTS - BLOOD GASES A+C+; DEVICE MASK VENTILATOR; FI02 60 %; PCO2 53 mm Hg (35-45); SITE RR
[2017-07-14 07:49] LABS: CONTINUOUS POS AIRWAY PRESSURE 5 cm H2O; MODE SPONTANEOUS; PRES. SUPPORT 17 CM/H2O; TOTAL RESP RATE 18 resp/min
[2017-07-14 08:11] LABS: PLATELET COUNT 177 K/uL (156-360)
[2017-07-15] VITALS (16 sets, daily range): BP systolic 141–208; BP diastolic 91–142
[2017-07-15 01:13] LABS: TROP-I INTERPRETATION NEGATIVE; TROPONIN-I < 0.01 ng/mL (0.0-0.30)
[2017-07-15 06:00] LABS: BASE EXCESS 6.2 mEq/L (-3 to +3); BICARBONATE 30.6 mEq/L (22-26); CARBOXY HGB 1.9 % (0-5); METHEMOGLOBIN 1.6 % (0-1.5); pH 7.46 (7.35-7.45)
[2017-07-15 06:01] LABS: COMMENTS - BLOOD GASES C+; DEVICE NCHH; FI02 40 %; O2 FLOW 30 L/MIN; PCO2 43 mm Hg (35-45); PO2 93 mm Hg (80-100); SITE RR; TOTAL RESP RATE 16 resp/min
[2017-07-15 10:29] LABS: TROP-I INTERPRETATION NEGATIVE; TROPONIN-I < 0.01 ng/mL (0.0-0.30)
[2017-07-15 14:56] LABS: INTER. NORMALIZED RATIO 1.2
[2017-07-15 15:39] LABS: ALBUMIN 3.3 G/DL (3.2-4.8); ALKALINE PHOSPHATASE 98 IU/L (3-129); ALT (GPT) 19 IU/L (3-49); AST (GOT) 24 IU/L (2-34); CHLORIDE 98 MEQ/L (99-109); GLUCOSE 124 mg/dL (70-99); LIPASE 6 U/L (1.0-51.0); POTASSIUM 4.9 MEQ/L (3.7-5.4); SODIUM 135 MEQ/L (136-147); TOTAL BILIRUBIN 0.7 MG/DL (0.0-1.0); TOTAL PROTEIN 5.7 G/DL (6.4-8.3); UREA NITROGEN (BUN) 26 mg/dL (9-23)
[2017-07-15 15:40] LABS: AMYLASE 44 IU/L (1-118); GFR ESTIMATE (CALCULATED) 14 mL/min/
== END 2017-07-15 17:22 | disposition left against medical advice (07) | DRG 291 ==
LOC: EME → EDBD 04:14 → EME 04:14 → EDOF 07:41 → 4WEST 07:41 → ENRESERV 07:48 → 4WEST 10:04
PROVIDERS: Emergency Medicine Emergency Medical Services; Internal Medicine Critical Care Medicine
PROC: 05HM33Z Insertion of Infusion Device into Right Internal Jugular Vein, Percutaneous Approach (ICD-10-PCS; principal; 2017-07-14)
PROC: 5A1D70Z Performance of Urinary Filtration, Intermittent, Less than 6 Hours Per Day (ICD-10-PCS; principal; 2017-07-14)
PROC: 5A09357 Assistance with Respiratory Ventilation, Less than 24 Consecutive Hours, Continuous Positive Airway Pressure (ICD-10-PCS; principal; 2017-07-14)
DX: I13.2 Hypertensive heart and chronic kidney disease with heart failure and with stage 5 chronic kidney disease, or end stage renal disease (principal); I16.1 Hypertensive emergency; J96.01 Acute respiratory failure with hypoxia; I50.9 Heart failure, unspecified; N18.6 End stage renal disease; Z99.2 Dependence on renal dialysis; F32.9 Major depressive disorder, single episode, unspecified; D50.9 Iron deficiency anemia, unspecified; D63.1 Anemia in chronic kidney disease; E78.5 Hyperlipidemia, unspecified; F17.200 Nicotine dependence, unspecified, uncomplicated; I48.2 Chronic atrial fibrillation; F41.9 Anxiety disorder, unspecified; K21.9 Gastro-esophageal reflux disease without esophagitis; K31.84 Gastroparesis; Z94.0 Kidney transplant status; T86.12 Kidney transplant failure; N25.81 Secondary hyperparathyroidism of renal origin; I34.0 Nonrheumatic mitral (valve) insufficiency; G40.909 Epilepsy, unspecified, not intractable, without status epilepticus
CPT/HCPCS: 36600; 71045; 71046; 80048; 80053; 82150; 82803; 83690; 83735; 83880; 84484; 85027; 85610; 87641; 94002; 94799; 99281; 99285; G0257; J0780; J0881; J1170; J1270; J1756; J2270; J7050

== ENCOUNTER 2017-07-17 15:37 | Observation (INO) | payer OTHER ==
[~2017-07-17] VITALS: Ht 157.5 cm; Wt 43.7 kg
[~2017-07-17 15:37] MED LIST changes: -COUMADIN7.5 MG PO; +WARFARIN SODIUM5 MG PO
[2017-07-17 17:02] LABS: EOSINOPHIL (%) 1.3 % (0-5); EOSINOPHIL COUNT 0.1 K/uL (0-0.3); HEMATOCRIT 30.3 % (36.0-46.0); HEMOGLOBIN 9.5 G/DL (11.9-15.5); IMMATURE GRANULOCYTE (%) 0.3 % (0.0-0.7); LYMPHOCYTE (%) 24.4 % (15-42); MCH 30.2 PG (29.0-34.0); MCHC 31.4 G/DL (30.0-36.0); MCV 96.2 FL (83-99); MONOCYTE (%) 13.3 % (3-12); MONOCYTE COUNT 0.5 K/uL (0-0.8); NEUTROPHIL (%) 59.7 % (45-76); NEUTROPHIL COUNT 2.4 K/uL (1.8-6.4); PLATELET COUNT 190 K/uL (156-360); RBC DIS.WIDTH-CV 16.4 % (11.8-14.6); RBC DIS.WIDTH-SD 58.2 % (39-53); RED BLOOD COUNT 3.15 M/uL (3.80-5.20)
[2017-07-17 17:09] LABS: INTER. NORMALIZED RATIO 1.1
[2017-07-17 17:11] LABS: PTT 30.2 SEC (25-37)
[2017-07-17 17:16] LABS: ALBUMIN 3.9 g/dL (3.2-4.8); CHLORIDE 90 mEq/L (99-109); POTASSIUM 4.4 mEq/L (3.7-5.4); SODIUM 137 mEq/L (136-147)
[2017-07-17 17:17] LABS: MAGNESIUM 1.9 mg/dL (1.3-2.7)
[2017-07-17 17:18] LABS: GLUCOSE 111 mg/dL (70-99)
[2017-07-17 17:19] LABS: TOTAL PROTEIN 6.7 g/dL (6.4-8.3)
[2017-07-17 17:20] LABS: TOTAL BILIRUBIN 0.6 mg/dL (0.0-1.0)
[2017-07-17 17:22] LABS: ALKALINE PHOSPHATASE 115 IU/L (3-129); CREATININE 3.8 mg/dL (0.6-1.3); GFR ESTIMATE (CALCULATED) 14 mL/min/
[2017-07-17 17:23] LABS: UREA NITROGEN (BUN) 21 mg/dL (9-23)
[2017-07-17 17:24] LABS: AST (GOT) 16 IU/L (2-34)
[2017-07-17 17:25] LABS: ALT (GPT) 14 IU/L (3-49)
[2017-07-17 17:26] LABS: LIPASE 5 U/L (1.0-51.0)
[2017-07-17 17:31] LABS: QUANTITATIVE HCG < 4.0 MIU/ML
[2017-07-17 23:55] VITALS: BP 207/122
[2017-07-18 04:00] VITALS: BP 166/100
[2017-07-18 08:30] VITALS: BP 155/94
[2017-07-18 09:45] VITALS: BP 133/77
== END 2017-07-18 12:04 | disposition home or self-care (01) ==
LOC: EME 15:37 → 5WEST 20:45 → EDOF 20:45 → ENRESERV 20:46 → 5WEST 23:29 → ENPENDDIS 07-18 → 5WEST 07-18 12:04
PROVIDERS: Emergency Medicine
DX: R10.9 Unspecified abdominal pain (principal); R11.2 Nausea with vomiting, unspecified; I16.0 Hypertensive urgency; G89.29 Other chronic pain; K31.84 Gastroparesis; I12.0 Hypertensive chronic kidney disease with stage 5 chronic kidney disease or end stage renal disease; N18.6 End stage renal disease; Z99.2 Dependence on renal dialysis; Z91.14 Patient's other noncompliance with medication regimen; Z79.01 Long term (current) use of anticoagulants; T86.12 Kidney transplant failure; Z90.49 Acquired absence of other specified parts of digestive tract; F17.210 Nicotine dependence, cigarettes, uncomplicated; E78.5 Hyperlipidemia, unspecified; Z88.1 Allergy status to other antibiotic agents; Z88.8 Allergy status to other drugs, medicaments and biological substances; Z91.09 Other allergy status, other than to drugs and biological substances; F12.90 Cannabis use, unspecified, uncomplicated; Z79.891 Long term (current) use of opiate analgesic
CPT/HCPCS: 71045; 80053; 81003; 83605; 83690; 83735; 84702; 85025; 85610; 85730; 99281; 99285; G0378; J0360; J1200; J1630; J2060; J2270; J2405

== ENCOUNTER 2017-07-21 14:22 | Emergency (ER) | payer OTHER ==
[~2017-07-21] VITALS: Ht 160 cm; Wt 43.0 kg
[2017-07-21 18:53] LABS: ALBUMIN 3.8 g/dL (3.2-4.8)
[2017-07-21 18:54] LABS: CHLORIDE 91 mEq/L (99-109); POTASSIUM 4.5 mEq/L (3.7-5.4); SODIUM 141 mEq/L (136-147)
[2017-07-21 18:56] LABS: GLUCOSE 103 mg/dL (70-99); TOTAL PROTEIN 6.5 g/dL (6.4-8.3)
[2017-07-21 18:58] LABS: TOTAL BILIRUBIN 0.6 mg/dL (0.0-1.0)
[2017-07-21 18:59] LABS: ALKALINE PHOSPHATASE 115 IU/L (3-129); HEMATOCRIT 28.8 % (36.0-46.0); HEMOGLOBIN 9.1 G/DL (11.9-15.5); MCH 30.5 PG (29.0-34.0); MCHC 31.6 G/DL (30.0-36.0); MCV 96.6 FL (83-99); PLATELET COUNT 235 K/uL (156-360); RBC DIS.WIDTH-CV 16.9 % (11.8-14.6); RBC DIS.WIDTH-SD 59.4 % (39-53); RED BLOOD COUNT 2.98 M/uL (3.80-5.20); WHITE BLOOD COUNT 4.7 K/uL (4.1-10.2)
[2017-07-21 19:00] LABS: CREATININE 3.3 mg/dL (0.6-1.3); GFR ESTIMATE (CALCULATED) 17 mL/min/
[2017-07-21 19:01] LABS: UREA NITROGEN (BUN) 20 mg/dL (9-23)
[2017-07-21 19:03] LABS: ALT (GPT) 13 IU/L (3-49); LIPASE 63 U/L (1.0-51.0)
[2017-07-21 19:08] LABS: AST (GOT) 26 IU/L (2-34)
[2017-07-21 19:09] LABS: QUANTITATIVE HCG < 4.0 MIU/ML
[2017-07-21 21:18] VITALS: BP 208/129
== END 2017-07-21 21:24 | disposition home or self-care (01) ==
LOC: EME 14:22
PROVIDERS: Emergency Medicine
DX: K31.84 Gastroparesis (principal); I12.0 Hypertensive chronic kidney disease with stage 5 chronic kidney disease or end stage renal disease; N18.6 End stage renal disease; Z94.0 Kidney transplant status; Z99.2 Dependence on renal dialysis; R16.0 Hepatomegaly, not elsewhere classified; Z79.01 Long term (current) use of anticoagulants; F17.200 Nicotine dependence, unspecified, uncomplicated
CPT/HCPCS: 80053; 81003; 83690; 84702; 85027; 99281; 99285; J2270; J2405

== ENCOUNTER 2017-07-31 12:25 | Observation (INO) | payer OTHER ==
[~2017-07-31] VITALS: Ht 157.5 cm; Wt 41.1 kg
[~2017-07-31 12:25] MED LIST changes: +COUMADIN7.5 MG PO; -WARFARIN SODIUM5 MG PO
[2017-07-31 13:50] LABS: HEMATOCRIT 32.3 % (36.0-46.0); HEMOGLOBIN 10.2 G/DL (11.9-15.5); MCH 31.2 PG (29.0-34.0); MCHC 31.6 G/DL (30.0-36.0); MCV 98.8 FL (83-99); PLATELET COUNT 193 K/uL (156-360); RBC DIS.WIDTH-SD 61.2 % (39-53); RED BLOOD COUNT 3.27 M/uL (3.80-5.20); WHITE BLOOD COUNT 5.6 K/uL (4.1-10.2)
[2017-07-31 14:26] LABS: ALBUMIN 4.1 g/dL (3.2-4.8); CHLORIDE 95 mEq/L (99-109); POTASSIUM 5.4 mEq/L (3.7-5.4); SODIUM 141 mEq/L (136-147)
[2017-07-31 14:28] LABS: GLUCOSE 117 mg/dL (70-99); TOTAL PROTEIN 6.3 g/dL (6.4-8.3)
[2017-07-31 14:30] LABS: TOTAL BILIRUBIN 0.7 mg/dL (0.0-1.0)
[2017-07-31 14:32] LABS: ALKALINE PHOSPHATASE 121 IU/L (3-129); CREATININE 4.4 mg/dL (0.6-1.3); GFR ESTIMATE (CALCULATED) 12 mL/min/
[2017-07-31 14:33] LABS: UREA NITROGEN (BUN) 26 mg/dL (9-23)
[2017-07-31 14:34] LABS: AST (GOT) 26 IU/L (2-34)
[2017-07-31 14:35] LABS: ALT (GPT) 13 IU/L (3-49); LIPASE 8 U/L (1.0-51.0)
[2017-07-31 14:41] LABS: QUANTITATIVE HCG < 4.0 MIU/ML
[2017-07-31 19:54] LABS: PHOSPHORUS 5.7 mg/dL (2.5-4.9)
[2017-08-01 03:06] LABS: HEMATOCRIT 32.1 % (36.0-46.0); HEMOGLOBIN 10.1 G/DL (11.9-15.5); MCH 30.9 PG (29.0-34.0); MCHC 31.5 G/DL (30.0-36.0); MCV 98.2 FL (83-99); RBC DIS.WIDTH-CV 17.2 % (11.8-14.6); RBC DIS.WIDTH-SD 62.2 % (39-53); RED BLOOD COUNT 3.27 M/uL (3.80-5.20); WHITE BLOOD COUNT 7.4 K/uL (4.1-10.2)
[2017-08-01 03:20] VITALS: BP 168/110
[2017-08-01 03:46] LABS: PLATELET CLUMPS PRESENT - PLATELET COUNTS APPEARS DECREASED
[2017-08-01 03:47] LABS: PLATELET COUNT UNABLE TO REPORT K/uL (156-360)
[2017-08-01 07:46] VITALS: BP 179/111
[2017-08-01 10:47] VITALS: BP 163/96
[2017-08-01 10:59] LABS: HEPATITIS B SURFACE ANTIGEN Nonreactive
[2017-08-01 11:03] LABS: HEPATITIS B SURFACE ANTIBODY REACTIVE
[2017-08-01 13:45] VITALS: BP 164/90
== END 2017-08-01 14:00 | disposition home or self-care (01) ==
LOC: EME 12:25 → EDOF 08-01 01:35 → ENRESERV 08-01 01:36 → 5WEST 08-01 03:03
PROVIDERS: Hospitalist; Internal Medicine Nephrology; Nurse Practitioner Family
PROC: 5A1D70Z Performance of Urinary Filtration, Intermittent, Less than 6 Hours Per Day (ICD-10-PCS; principal; 2017-08-01)
DX: K31.84 Gastroparesis (principal); I16.0 Hypertensive urgency; I12.0 Hypertensive chronic kidney disease with stage 5 chronic kidney disease or end stage renal disease; N18.6 End stage renal disease; E87.70 Fluid overload, unspecified; J81.1 Chronic pulmonary edema; D64.9 Anemia, unspecified; Z91.19 Patient's noncompliance with other medical treatment and regimen; F12.90 Cannabis use, unspecified, uncomplicated; G89.29 Other chronic pain; F17.200 Nicotine dependence, unspecified, uncomplicated; T86.12 Kidney transplant failure; Z90.49 Acquired absence of other specified parts of digestive tract
CPT/HCPCS: 71046; 80053; 80069; 81003; 83690; 84100; 84702; 85027; 86706; 87340; 93005; G0257; G0378; J0360; J1170; J1630; J2270; J2405; J2550; J7050

== ENCOUNTER 2017-08-09 00:08 | Inpatient (IN) | payer OTHER ==
[~2017-08-09] VITALS: Ht 157.5 cm; Wt 43.1 kg
[2017-08-09] VITALS (16 sets, daily range): BP systolic 149–181; BP diastolic 88–115
[2017-08-09 02:05] LABS: HEMOGLOBIN 9.4 G/DL (11.9-15.5); MCH 31.1 PG (29.0-34.0); MCHC 31.3 G/DL (30.0-36.0); MCV 99.3 FL (83-99); RBC DIS.WIDTH-CV 17.4 % (11.8-14.6); RBC DIS.WIDTH-SD 63.5 % (39-53); RED BLOOD COUNT 3.02 M/uL (3.80-5.20); WHITE BLOOD COUNT 4.4 K/uL (4.1-10.2)
[2017-08-09 02:06] LABS: PLATELET COUNT 198 K/uL (156-360)
[2017-08-09 02:20] LABS: ALBUMIN 4.1 g/dL (3.2-4.8); CHLORIDE 90 mEq/L (99-109); POTASSIUM 3.9 mEq/L (3.7-5.4); SODIUM 142 mEq/L (136-147)
[2017-08-09 02:23] LABS: GLUCOSE 80 mg/dL (70-99); TOTAL PROTEIN 6.2 g/dL (6.4-8.3)
[2017-08-09 02:25] LABS: TOTAL BILIRUBIN 0.6 mg/dL (0.0-1.0)
[2017-08-09 02:26] LABS: ALKALINE PHOSPHATASE 113 IU/L (3-129); CREATININE 2.8 mg/dL (0.6-1.3); GFR ESTIMATE (CALCULATED) 21 mL/min/
[2017-08-09 02:28] LABS: AST (GOT) 13 IU/L (2-34)
[2017-08-09 02:29] LABS: ALT (GPT) 6 IU/L (3-49)
[2017-08-09 02:35] LABS: CARBON DIOXIDE (BICARBONATE) > 40.0 mEq/L (20-31); QUANTITATIVE HCG 5.9 MIU/ML
[2017-08-09 02:37] LABS: UREA NITROGEN (BUN) 14 mg/dL (9-23)
[2017-08-09 03:19] LABS: BASE EXCESS 19.5 mEq/L (-3 to +3); BICARBONATE 43.9 mEq/L (22-26); CARBOXY HGB 3.2 % (0-5); METHEMOGLOBIN 0.4 % (0-1.5); PCO2 49 mm Hg (35-45); PO2 62 mm Hg (80-100); SITE RR; pH 7.56 (7.35-7.45)
[2017-08-09 03:20] LABS: COMMENTS - BLOOD GASES C+
[2017-08-09] MEDS ORDERED: LYRICA25 MG PO (09:06)
[2017-08-09 16:17] LABS: INTER. NORMALIZED RATIO 1.1
[2017-08-10] VITALS (33 sets, daily range): BP systolic 0–201; BP diastolic 0–121
[2017-08-10 06:32] LABS: BASOPHIL (%) 0.5 % (0-1); EOSINOPHIL (%) 0.5 % (0-5); HEMATOCRIT 31.1 % (36.0-46.0); HEMOGLOBIN 10.5 G/DL (11.9-15.5); IMMATURE GRANULOCYTE (%) 0.3 % (0.0-0.7); LYMPHOCYTE (%) 11.1 % (15-42); LYMPHOCYTE COUNT 0.8 K/uL (1.0-2.8); MCH 31.7 PG (29.0-34.0); MCHC 33.8 G/DL (30.0-36.0); MONOCYTE (%) 9.1 % (3-12); MONOCYTE COUNT 0.7 K/uL (0-0.8); NEUTROPHIL (%) 78.5 % (45-76); NEUTROPHIL COUNT 5.9 K/uL (1.8-6.4); RBC DIS.WIDTH-SD 58.8 % (39-53); RED BLOOD COUNT 3.31 M/uL (3.80-5.20); WHITE BLOOD COUNT 7.5 K/uL (4.1-10.2)
[2017-08-10 07:24] LABS: PLATELET COUNT 74 K/uL (156-360)
[2017-08-10 15:46] LABS: ALBUMIN 3.5 G/DL (3.2-4.8); CHLORIDE 87 MEQ/L (99-109)
[2017-08-10 15:52] LABS: GLUCOSE 97 mg/dL (70-99); PHOSPHORUS 7.3 mg/dL (2.5-4.9)
[2017-08-10 15:53] LABS: CREATININE 5.2 MG/DL (0.6-1.3); GFR ESTIMATE (CALCULATED) 10 mL/min/; SODIUM 133 MEQ/L (136-147); UREA NITROGEN (BUN) 42 mg/dL (9-23)
[2017-08-11] VITALS (24 sets, daily range): BP systolic 86–174; BP diastolic 54–132
[2017-08-11 06:02] LABS: INTER. NORMALIZED RATIO 1.2
[2017-08-11 06:05] LABS: PTT 29.4 SEC (25-37)
[2017-08-11 06:16] LABS: GLUCOSE 86 mg/dL (70-99); POTASSIUM 4.4 MEQ/L (3.7-5.4); SODIUM 136 MEQ/L (136-147); UREA NITROGEN (BUN) 28 mg/dL (9-23)
[2017-08-11 06:28] LABS: CHLORIDE 98 MEQ/L (99-109); CREATININE 3.2 MG/DL (0.6-1.3); GFR ESTIMATE (CALCULATED) 18 mL/min/
[2017-08-12] VITALS (13 sets, daily range): BP systolic 126–191; BP diastolic 79–127
[2017-08-12 05:23] LABS: INTER. NORMALIZED RATIO 1.1
[2017-08-12 05:46] LABS: CHLORIDE 97 MEQ/L (99-109); CREATININE 4.9 MG/DL (0.6-1.3); GFR ESTIMATE (CALCULATED) 11 mL/min/; GLUCOSE 145 mg/dL (70-99); PHOSPHORUS 7.1 mg/dL (2.5-4.9); POTASSIUM 4.9 MEQ/L (3.7-5.4); SODIUM 138 MEQ/L (136-147); UREA NITROGEN (BUN) 59 mg/dL (9-23)
[2017-08-12 08:38] LABS: BASOPHIL (%) 0.1 % (0-1); EOSINOPHIL (%) 0 % (0-5); HEMATOCRIT 23.3 % (36.0-46.0); HEMOGLOBIN 7.7 G/DL (11.9-15.5); IMMATURE GRANULOCYTE (%) 0.4 % (0.0-0.7); LYMPHOCYTE COUNT 0.6 K/uL (1.0-2.8); MCH 31.8 PG (29.0-34.0); MCV 96.3 FL (83-99); MONOCYTE (%) 6.7 % (3-12); MONOCYTE COUNT 0.5 K/uL (0-0.8); NEUTROPHIL (%) 85.8 % (45-76); NEUTROPHIL COUNT 6.7 K/uL (1.8-6.4); PLATELET COUNT 99 K/uL (156-360); RBC DIS.WIDTH-CV 16.4 % (11.8-14.6); RED BLOOD COUNT 2.42 M/uL (3.80-5.20); WHITE BLOOD COUNT 7.8 K/uL (4.1-10.2)
== END 2017-08-12 11:55 | disposition home or self-care (01) | DRG 252 ==
LOC: EME 00:08 → 4WEST 08:34 → EDOF 08:34 → ENRESERV 09:02 → 4WEST 10:41
PROVIDERS: Emergency Medicine; Internal Medicine; Internal Medicine Critical Care Medicine; Obstetrics & Gynecology
PROC: 5A1D70Z Performance of Urinary Filtration, Intermittent, Less than 6 Hours Per Day (ICD-10-PCS; principal; 2017-08-10)
PROC: B5181ZZ Fluoroscopy of Superior Vena Cava using Low Osmolar Contrast (ICD-10-PCS; 2017-08-11)
PROC: 05753ZZ Dilation of Right Subclavian Vein, Percutaneous Approach (ICD-10-PCS; 2017-08-11)
PROC: 5A1935Z Respiratory Ventilation, Less than 24 Consecutive Hours (ICD-10-PCS; 2017-08-11)
PROC: 0BH17EZ Insertion of Endotracheal Airway into Trachea, Via Natural or Artificial Opening (ICD-10-PCS; 2017-08-11)
DX: I16.1 Hypertensive emergency (principal); J95.821 Acute postprocedural respiratory failure; I95.2 Hypotension due to drugs; T88.6XXA Anaphylactic reaction due to adverse effect of correct drug or medicament properly administered, initial encounter; T78.3XXA Angioneurotic edema, initial encounter; T40.4X5A Adverse effect of other synthetic narcotics, initial encounter; T42.4X5A Adverse effect of benzodiazepines, initial encounter; I12.0 Hypertensive chronic kidney disease with stage 5 chronic kidney disease or end stage renal disease; N18.6 End stage renal disease; T86.12 Kidney transplant failure; Z99.2 Dependence on renal dialysis; I82.C11 Acute embolism and thrombosis of right internal jugular vein; I87.8 Other specified disorders of veins; K31.84 Gastroparesis; N12 Tubulo-interstitial nephritis, not specified as acute or chronic; I48.91 Unspecified atrial fibrillation; D63.1 Anemia in chronic kidney disease; D50.9 Iron deficiency anemia, unspecified; G40.409 Other generalized epilepsy and epileptic syndromes, not intractable, without status epilepticus; N25.81 Secondary hyperparathyroidism of renal origin; E87.2 Acidosis; F11.20 Opioid dependence, uncomplicated; K56.0 Paralytic ileus; K21.9 Gastro-esophageal reflux disease without esophagitis; E78.5 Hyperlipidemia, unspecified; G43.909 Migraine, unspecified, not intractable, without status migrainosus; G89.4 Chronic pain syndrome; F41.9 Anxiety disorder, unspecified; F32.9 Major depressive disorder, single episode, unspecified; F17.210 Nicotine dependence, cigarettes, uncomplicated; F12.90 Cannabis use, unspecified, uncomplicated; Z86.718 Personal history of other venous thrombosis and embolism; Z79.01 Long term (current) use of anticoagulants; Z96.89 Presence of other specified functional implants; Z88.1 Allergy status to other antibiotic agents; Z91.14 Patient's other noncompliance with medication regimen
CPT/HCPCS: 36600; 70450; 71045; 74176; 80048; 80053; 80069; 81003; 82803; 82948; 84100; 84702; 85025; 85027; 85610; 85730; 87070; 87205; 87502; 87641; 93005; 94002; 94799; 99281; 99285; C1753; C1894; C9113; J0330; J0360; J0690; J0780; J0881; J1200; J1644; J2250; J2270; J2405; J2704; J2765; J2930; J3010; J7050; Q0164; S0020; S0028

== ENCOUNTER 2017-08-21 01:08 | Emergency (ER) | payer OTHER ==
[~2017-08-21] VITALS: Ht 157.5 cm; Wt 45.1 kg
[~2017-08-21 01:08] MED LIST changes: +LYRICA25 MG PO
[2017-08-21 02:38] LABS: HEMATOCRIT 31.4 % (36.0-46.0); HEMOGLOBIN 10.1 G/DL (11.9-15.5); MCH 31.5 PG (29.0-34.0); MCHC 32.2 G/DL (30.0-36.0); MCV 97.8 FL (83-99); PLATELET COUNT 214 K/uL (156-360); RBC DIS.WIDTH-CV 17.6 % (11.8-14.6); RBC DIS.WIDTH-SD 62.3 % (39-53); RED BLOOD COUNT 3.21 M/uL (3.80-5.20); WHITE BLOOD COUNT 4.4 K/uL (4.1-10.2)
[2017-08-21 02:43] LABS: ALBUMIN 4.1 g/dL (3.2-4.8); CHLORIDE 93 mEq/L (99-109); SODIUM 139 mEq/L (136-147)
[2017-08-21 02:45] LABS: GLUCOSE 99 mg/dL (70-99); TOTAL PROTEIN 7.1 g/dL (6.4-8.3)
[2017-08-21 02:47] LABS: TOTAL BILIRUBIN 0.6 mg/dL (0.0-1.0)
[2017-08-21 02:49] LABS: ALKALINE PHOSPHATASE 142 IU/L (3-129); CREATININE 2.9 mg/dL (0.6-1.3); GFR ESTIMATE (CALCULATED) 20 mL/min/
[2017-08-21 02:50] LABS: UREA NITROGEN (BUN) 15 mg/dL (9-23)
[2017-08-21 02:51] LABS: AST (GOT) 13 IU/L (2-34)
[2017-08-21 02:52] LABS: ALT (GPT) < 3 IU/L (3-49); LIPASE 23 U/L (1.0-51.0)
[2017-08-21] MEDS ORDERED: PHENERGAN25 MG PR (04:58)
[2017-08-21 05:14] VITALS: BP 159/97
== END 2017-08-21 05:15 | disposition home or self-care (01) ==
LOC: EME 01:08
PROVIDERS: Physician Assistant
DX: R11.2 Nausea with vomiting, unspecified (principal); I12.9 Hypertensive chronic kidney disease with stage 1 through stage 4 chronic kidney disease, or unspecified chronic kidney disease; N18.9 Chronic kidney disease, unspecified; R10.9 Unspecified abdominal pain; G89.29 Other chronic pain; K21.9 Gastro-esophageal reflux disease without esophagitis; E78.5 Hyperlipidemia, unspecified; F41.9 Anxiety disorder, unspecified; F32.9 Major depressive disorder, single episode, unspecified; Z99.2 Dependence on renal dialysis; Z94.0 Kidney transplant status; Z90.49 Acquired absence of other specified parts of digestive tract; F17.200 Nicotine dependence, unspecified, uncomplicated; Z88.1 Allergy status to other antibiotic agents; Z88.8 Allergy status to other drugs, medicaments and biological substances
CPT/HCPCS: 71046; 80053; 81003; 83690; 85027; 99281; 99285; J1630; J2270; J2405; J3010

== ENCOUNTER 2017-08-25 15:05 | Emergency (ER) | payer OTHER ==
[~2017-08-25] VITALS: Ht 157.5 cm; Wt 46.7 kg
[~2017-08-25 15:05] MED LIST changes: +PHENERGAN25 MG PR
[2017-08-25 21:01] VITALS: BP 170/109
== END 2017-08-25 21:02 | disposition home or self-care (01) ==
LOC: EME 15:05
DX: R51 Headache (principal); I12.9 Hypertensive chronic kidney disease with stage 1 through stage 4 chronic kidney disease, or unspecified chronic kidney disease; N18.9 Chronic kidney disease, unspecified; Z99.2 Dependence on renal dialysis; Z94.0 Kidney transplant status; G89.29 Other chronic pain; E78.5 Hyperlipidemia, unspecified; F17.200 Nicotine dependence, unspecified, uncomplicated; Z79.01 Long term (current) use of anticoagulants; K21.9 Gastro-esophageal reflux disease without esophagitis; R56.9 Unspecified convulsions; F32.9 Major depressive disorder, single episode, unspecified; F41.9 Anxiety disorder, unspecified; Z88.1 Allergy status to other antibiotic agents
CPT/HCPCS: 99281; 99285; J0780; J1200; J2270

== ENCOUNTER 2017-08-29 12:22 | Inpatient (IN) | payer OTHER ==
[~2017-08-29] VITALS: Ht 157.5 cm; Wt 48.1 kg
[2017-08-29 16:34] LABS: BASOPHIL (%) 0.8 % (0-1); EOSINOPHIL (%) 3.5 % (0-5); EOSINOPHIL COUNT 0.2 K/uL (0-0.3); HEMATOCRIT 25.7 % (36.0-46.0); HEMOGLOBIN 8.3 G/DL (11.9-15.5); IMMATURE GRANULOCYTE (%) 0.4 % (0.0-0.7); LYMPHOCYTE (%) 24.1 % (15-42); LYMPHOCYTE COUNT 1.2 K/uL (1.0-2.8); MCH 31.3 PG (29.0-34.0); MCHC 32.3 G/DL (30.0-36.0); MONOCYTE (%) 10.5 % (3-12); MONOCYTE COUNT 0.5 K/uL (0-0.8); NEUTROPHIL (%) 60.7 % (45-76); NEUTROPHIL COUNT 3.1 K/uL (1.8-6.4); RBC DIS.WIDTH-CV 17.9 % (11.8-14.6); RBC DIS.WIDTH-SD 62.4 % (39-53); RED BLOOD COUNT 2.65 M/uL (3.80-5.20); WHITE BLOOD COUNT 5.2 K/uL (4.1-10.2)
[2017-08-29 16:55] LABS: ALBUMIN 3.6 G/DL (3.2-4.8); ALKALINE PHOSPHATASE 105 IU/L (3-129); ALT (GPT) 5 IU/L (3-49); AST (GOT) 13 IU/L (2-34); CHLORIDE 89 MEQ/L (99-109); CREATININE 5.9 MG/DL (0.6-1.3); GFR ESTIMATE (CALCULATED) 9 mL/min/; GLUCOSE 88 mg/dL (70-99); LIPASE 33 U/L (1.0-51.0); SODIUM 137 MEQ/L (136-147); TOTAL BILIRUBIN 0.6 MG/DL (0.0-1.0); TOTAL PROTEIN 6.1 G/DL (6.4-8.3); UREA NITROGEN (BUN) 45 mg/dL (9-23)
[2017-08-29 17:17] LABS: INTER. NORMALIZED RATIO 1.1
[2017-08-29 17:19] LABS: PTT 29.1 SEC (25-37)
[2017-08-29 17:22] LABS: ANISOCYTOSIS 1+; MACROCYTES 1+; PLAT.SUFFICIENCY ADEQUATE; PLATELET CLUMPS PRESENT - PLATELET COUNT APPEARS ADQ.
[2017-08-29 17:40] LABS: PLATELET COUNT UNABLE TO REPORT K/uL (156-360)
[2017-08-29 21:40] VITALS: BP 125/79
[2017-08-29 21:59] VITALS: BP 125/79
[2017-08-29 22:00] VITALS: BP 131/75
[2017-08-29 22:30] VITALS: BP 135/79
[2017-08-29 23:00] VITALS: BP 127/75
[2017-08-29 23:30] VITALS: BP 121/67
[2017-08-30] VITALS (31 sets, daily range): BP systolic 109–181; BP diastolic 58–109
[2017-08-30 06:06] LABS: CHLORIDE 88 MEQ/L (99-109); CREATININE 6.6 MG/DL (0.6-1.3); GFR ESTIMATE (CALCULATED) 8 mL/min/; GLUCOSE 96 mg/dL (70-99); POTASSIUM 4.7 MEQ/L (3.7-5.4); SODIUM 135 MEQ/L (136-147); UREA NITROGEN (BUN) 49 mg/dL (9-23)
[2017-08-30 10:44] LABS: HEPATITIS B SURFACE ANTIGEN Nonreactive
[2017-08-31] VITALS (25 sets, daily range): BP systolic 113–163; BP diastolic 73–126
[2017-08-31 12:51] LABS: BASE EXCESS -0.4 mEq/L (-3 to +3); CARBOXY HGB 1.1 % (0-5); METHEMOGLOBIN 1.2 % (0-1.5)
[2017-08-31 12:55] LABS: BICARBONATE 24.8 mEq/L (22-26); PCO2 42 mm Hg (35-45); PO2 466 mm Hg (80-100); pH 7.38 (7.35-7.45)
[2017-08-31 12:56] LABS: COMMENTS - BLOOD GASES C+; DEVICE VENT; FI02 100 %; MECHANICAL RATE 16 resp/min; MODE AC; PEEP 5 CM/H20; SITE RB; TIDAL VOLUME 450 ML; TOTAL RESP RATE 17 resp/min
[2017-08-31 13:31] LABS: BASOPHIL (%) 0.1 % (0-1); EOSINOPHIL (%) 0 % (0-5); HEMATOCRIT 32.1 % (36.0-46.0); HEMOGLOBIN 10.5 G/DL (11.9-15.5); IMMATURE GRANULOCYTE (%) 0.5 % (0.0-0.7); LYMPHOCYTE (%) 4.6 % (15-42); LYMPHOCYTE COUNT 0.7 K/uL (1.0-2.8); MCH 31.4 PG (29.0-34.0); MCHC 32.7 G/DL (30.0-36.0); MCV 96.1 FL (83-99); MONOCYTE (%) 1.2 % (3-12); MONOCYTE COUNT 0.2 K/uL (0-0.8); NEUTROPHIL (%) 93.6 % (45-76); NEUTROPHIL COUNT 13.7 K/uL (1.8-6.4); PLATELET COUNT 267 K/uL (156-360); RBC DIS.WIDTH-SD 60.4 % (39-53); RED BLOOD COUNT 3.34 M/uL (3.80-5.20); WHITE BLOOD COUNT 14.6 K/uL (4.1-10.2)
[2017-08-31 13:42] LABS: PHOSPHORUS 7.1 mg/dL (2.5-4.9); SODIUM 132 MEQ/L (136-147); UREA NITROGEN (BUN) 31 mg/dL (9-23)
[2017-08-31 13:52] LABS: CHLORIDE 97 MEQ/L (99-109); CREATININE 4.3 MG/DL (0.6-1.3); GFR ESTIMATE (CALCULATED) 13 mL/min/; GLUCOSE 190 mg/dL (70-99); POTASSIUM 6.2 MEQ/L (3.7-5.4)
[2017-08-31 17:37] LABS: HEMATOCRIT 25.1 % (36.0-46.0); MCH 30.8 PG (29.0-34.0); MCHC 32.3 G/DL (30.0-36.0); MCV 95.4 FL (83-99); RBC DIS.WIDTH-SD 59.6 % (39-53); WHITE BLOOD COUNT 11.8 K/uL (4.1-10.2)
[2017-08-31 17:54] LABS: CHLORIDE 95 MEQ/L (99-109); CREATININE 4.6 MG/DL (0.6-1.3); GFR ESTIMATE (CALCULATED) 12 mL/min/; POTASSIUM 5.9 MEQ/L (3.7-5.4); SODIUM 134 MEQ/L (136-147); UREA NITROGEN (BUN) 36 mg/dL (9-23)
[2017-08-31 17:56] LABS: GLUCOSE 105 mg/dL (70-99)
[2017-08-31 17:57] LABS: PLAT.SUFFICIENCY ADEQUATE
[2017-08-31 17:58] LABS: HEMOGLOBIN 8.1 G/DL (11.9-15.5); PLATELET COUNT 136 K/uL (156-360); RED BLOOD COUNT 2.63 M/uL (3.80-5.20)
[2017-09-01] VITALS (31 sets, daily range): BP systolic 116–184; BP diastolic 74–126
[2017-09-01 06:48] LABS: BASOPHIL (%) 0.1 % (0-1); EOSINOPHIL (%) 0 % (0-5); HEMATOCRIT 21.8 % (36.0-46.0); IMMATURE GRANULOCYTE (%) 0.6 % (0.0-0.7); LYMPHOCYTE (%) 3.1 % (15-42); LYMPHOCYTE COUNT 0.5 K/uL (1.0-2.8); MCHC 32.1 G/DL (30.0-36.0); MCV 96.5 FL (83-99); MONOCYTE COUNT 0.8 K/uL (0-0.8); NEUTROPHIL (%) 91.2 % (45-76); NEUTROPHIL COUNT 13.8 K/uL (1.8-6.4); PLATELET COUNT 124 K/uL (156-360); RBC DIS.WIDTH-CV 17.2 % (11.8-14.6); RBC DIS.WIDTH-SD 60.9 % (39-53); RED BLOOD COUNT 2.26 M/uL (3.80-5.20); WHITE BLOOD COUNT 15.1 K/uL (4.1-10.2)
[2017-09-01 07:56] LABS: CHLORIDE 95 MEQ/L (99-109); CREATININE 5.5 MG/DL (0.6-1.3); GFR ESTIMATE (CALCULATED) 9 mL/min/; GLUCOSE 119 mg/dL (70-99); SODIUM 132 MEQ/L (136-147); UREA NITROGEN (BUN) 55 mg/dL (9-23)
[2017-09-01 07:58] LABS: POTASSIUM 6.6 MEQ/L (3.7-5.4)
[2017-09-02] VITALS (26 sets, daily range): BP systolic 122–176; BP diastolic 72–113
[2017-09-02 06:00] LABS: BASOPHIL (%) 0.4 % (0-1); EOSINOPHIL (%) 0.4 % (0-5); HEMATOCRIT 21.4 % (36.0-46.0); IMMATURE GRANULOCYTE (%) 0.4 % (0.0-0.7); LYMPHOCYTE (%) 14.6 % (15-42); LYMPHOCYTE COUNT 1.2 K/uL (1.0-2.8); MCH 31.5 PG (29.0-34.0); MCHC 32.2 G/DL (30.0-36.0); MCV 97.7 FL (83-99); MONOCYTE (%) 9.4 % (3-12); MONOCYTE COUNT 0.8 K/uL (0-0.8); NEUTROPHIL (%) 74.8 % (45-76); NEUTROPHIL COUNT 6.3 K/uL (1.8-6.4); PLATELET COUNT 118 K/uL (156-360); RBC DIS.WIDTH-CV 17.2 % (11.8-14.6); RBC DIS.WIDTH-SD 62.4 % (39-53); RED BLOOD COUNT 2.19 M/uL (3.80-5.20); WHITE BLOOD COUNT 8.4 K/uL (4.1-10.2)
[2017-09-02 06:02] LABS: HEMOGLOBIN 6.9 G/DL (11.9-15.5)
[2017-09-02 06:06] LABS: CHLORIDE 91 MEQ/L (99-109); GLUCOSE 92 mg/dL (70-99); SODIUM 136 MEQ/L (136-147)
[2017-09-02 06:10] LABS: CREATININE 3.1 MG/DL (0.6-1.3); GFR ESTIMATE (CALCULATED) 18 mL/min/; POTASSIUM 3.7 MEQ/L (3.7-5.4); UREA NITROGEN (BUN) 26 mg/dL (9-23)
[2017-09-02 23:15] LABS: BASOPHIL (%) 0.3 % (0-1); EOSINOPHIL (%) 1.8 % (0-5); EOSINOPHIL COUNT 0.1 K/uL (0-0.3); HEMATOCRIT 22.8 % (36.0-46.0); HEMOGLOBIN 7.5 G/DL (11.9-15.5); IMMATURE GRANULOCYTE (%) 0.6 % (0.0-0.7); LYMPHOCYTE (%) 14.2 % (15-42); LYMPHOCYTE COUNT 1.1 K/uL (1.0-2.8); MCH 31.4 PG (29.0-34.0); MCHC 32.9 G/DL (30.0-36.0); MCV 95.4 FL (83-99); MONOCYTE (%) 9.1 % (3-12); MONOCYTE COUNT 0.7 K/uL (0-0.8); NEUTROPHIL COUNT 5.8 K/uL (1.8-6.4); PLATELET COUNT 108 K/uL (156-360); RBC DIS.WIDTH-CV 17.5 % (11.8-14.6); RBC DIS.WIDTH-SD 60.6 % (39-53); RED BLOOD COUNT 2.39 M/uL (3.80-5.20); WHITE BLOOD COUNT 7.9 K/uL (4.1-10.2)
[2017-09-03] VITALS (23 sets, daily range): BP systolic 125–212; BP diastolic 80–130
[2017-09-03 11:12] LABS: HEMOGLOBIN 7.1 G/DL (11.9-15.5); MCH 30.3 PG (29.0-34.0); MCHC 32.3 G/DL (30.0-36.0); PLATELET COUNT 108 K/uL (156-360); RBC DIS.WIDTH-SD 58.7 % (39-53); RED BLOOD COUNT 2.34 M/uL (3.80-5.20); WHITE BLOOD COUNT 7.2 K/uL (4.1-10.2)
[2017-09-03 11:35] LABS: HEPATITIS B SURFACE ANTIGEN Nonreactive
[2017-09-03 11:42] LABS: ALBUMIN 2.9 G/DL (3.2-4.8); GLUCOSE 81 mg/dL (70-99); POTASSIUM 3.3 MEQ/L (3.7-5.4); SODIUM 137 MEQ/L (136-147); UREA NITROGEN (BUN) 34 mg/dL (9-23)
[2017-09-03 11:43] LABS: CHLORIDE 101 MEQ/L (99-109); CREATININE 4.2 MG/DL (0.6-1.3); GFR ESTIMATE (CALCULATED) 13 mL/min/
[2017-09-04] VITALS (18 sets, daily range): BP systolic 111–200; BP diastolic 48–116
[2017-09-04 17:46] LABS: BASOPHIL (%) 0.3 % (0-1); EOSINOPHIL (%) 5.7 % (0-5); EOSINOPHIL COUNT 0.4 K/uL (0-0.3); HEMATOCRIT 22.1 % (36.0-46.0); HEMOGLOBIN 7.3 G/DL (11.9-15.5); IMMATURE GRANULOCYTE (%) 0.4 % (0.0-0.7); LYMPHOCYTE (%) 10.8 % (15-42); LYMPHOCYTE COUNT 0.8 K/uL (1.0-2.8); MCH 31.6 PG (29.0-34.0); MCV 95.7 FL (83-99); MONOCYTE (%) 10.1 % (3-12); MONOCYTE COUNT 0.8 K/uL (0-0.8); NEUTROPHIL (%) 72.7 % (45-76); NEUTROPHIL COUNT 5.7 K/uL (1.8-6.4); PLATELET COUNT 110 K/uL (156-360); RBC DIS.WIDTH-CV 16.4 % (11.8-14.6); RBC DIS.WIDTH-SD 57.4 % (39-53); RED BLOOD COUNT 2.31 M/uL (3.80-5.20); WHITE BLOOD COUNT 7.8 K/uL (4.1-10.2)
== END 2017-09-04 19:30 | disposition left against medical advice (07) | DRG 304 ==
LOC: EME 12:22 → EDOF 18:19 → 4WEST 18:19 → ENRESERV 18:21 → 4WEST 21:37
PROVIDERS: Emergency Medicine; Internal Medicine; Internal Medicine Critical Care Medicine; Internal Medicine Gastroenterology; Internal Medicine Nephrology; Obstetrics & Gynecology; Specialist
PROC: 5A1D70Z Performance of Urinary Filtration, Intermittent, Less than 6 Hours Per Day (ICD-10-PCS; principal; 2017-08-30)
PROC: 0DB68ZX Excision of Stomach, Via Natural or Artificial Opening Endoscopic, Diagnostic (ICD-10-PCS; 2017-08-31)
PROC: 02H633Z Insertion of Infusion Device into Right Atrium, Percutaneous Approach (ICD-10-PCS; 2017-08-31)
PROC: 5A1D70Z Performance of Urinary Filtration, Intermittent, Less than 6 Hours Per Day (ICD-10-PCS; 2017-09-01)
PROC: 5A1D70Z Performance of Urinary Filtration, Intermittent, Less than 6 Hours Per Day (ICD-10-PCS; 2017-09-03)
DX: I16.1 Hypertensive emergency (principal); K31.84 Gastroparesis; N18.6 End stage renal disease; I12.0 Hypertensive chronic kidney disease with stage 5 chronic kidney disease or end stage renal disease; E11.22 Type 2 diabetes mellitus with diabetic chronic kidney disease; N25.81 Secondary hyperparathyroidism of renal origin; K92.0 Hematemesis; J96.00 Acute respiratory failure, unspecified whether with hypoxia or hypercapnia; F17.200 Nicotine dependence, unspecified, uncomplicated; D63.1 Anemia in chronic kidney disease; K21.9 Gastro-esophageal reflux disease without esophagitis; Z94.0 Kidney transplant status; I87.8 Other specified disorders of veins; G40.909 Epilepsy, unspecified, not intractable, without status epilepticus; K29.70 Gastritis, unspecified, without bleeding; G89.29 Other chronic pain; F41.0 Panic disorder [episodic paroxysmal anxiety]; I48.91 Unspecified atrial fibrillation; E78.5 Hyperlipidemia, unspecified; Z86.718 Personal history of other venous thrombosis and embolism; Z90.49 Acquired absence of other specified parts of digestive tract; F41.8 Other specified anxiety disorders; F12.90 Cannabis use, unspecified, uncomplicated; Z91.14 Patient's other noncompliance with medication regimen; G43.909 Migraine, unspecified, not intractable, without status migrainosus; Z87.891 Personal history of nicotine dependence; Z88.1 Allergy status to other antibiotic agents; Z91.018 Allergy to other foods; Z91.09 Other allergy status, other than to drugs and biological substances; Z68.1 Body mass index [BMI] 19.9 or less, adult; Z83.3 Family history of diabetes mellitus; Z91.19 Patient's noncompliance with other medical treatment and regimen; Z99.2 Dependence on renal dialysis; Z82.49 Family history of ischemic heart disease and other diseases of the circulatory system; S80.11XA Contusion of right lower leg, initial encounter
CPT/HCPCS: 36600; 71045; 80048; 80048 91; 80053; 80069; 82803; 82948; 83690; 83735; 84100; 84702; 85025; 85025 91; 85027; 85610; 85610 GA; 85730; 85730 GA; 86850; 86900; 86901; 86920; 87070; 87205; 87340; 87641; 88305; 88342 TC; 92950; 93005; 94002; 94640; 94640 76; 99202; 99281; 99285; C1751; C1752; C1894; C9113; J0360; J0610; J0690; J0780; J1100; J1170; J1200; J1644; J2060; J2250; J2270; J2405; J2704; J7040; J7050; J7509; P9016; S0020

== ENCOUNTER 2017-09-10 22:47 | Emergency (ER) | payer OTHER ==
[~2017-09-10] VITALS: Ht 157.5 cm; Wt 44.5 kg
[2017-09-10 23:44] LABS: BASOPHIL (%) 0.3 % (0-1); EOSINOPHIL (%) 0.8 % (0-5); EOSINOPHIL COUNT 0.1 K/uL (0-0.3); HEMATOCRIT 25.8 % (36.0-46.0); HEMOGLOBIN 8.5 G/DL (11.9-15.5); IMMATURE GRANULOCYTE (%) 0.4 % (0.0-0.7); LYMPHOCYTE (%) 9.7 % (15-42); LYMPHOCYTE COUNT 1.3 K/uL (1.0-2.8); MCH 31.4 PG (29.0-34.0); MCHC 32.9 G/DL (30.0-36.0); MCV 95.2 FL (83-99); MONOCYTE (%) 6.4 % (3-12); MONOCYTE COUNT 0.8 K/uL (0-0.8); NEUTROPHIL (%) 82.4 % (45-76); NEUTROPHIL COUNT 10.7 K/uL (1.8-6.4); RBC DIS.WIDTH-CV 16.2 % (11.8-14.6); RBC DIS.WIDTH-SD 55.9 % (39-53); RED BLOOD COUNT 2.71 M/uL (3.80-5.20)
[2017-09-10 23:47] LABS: PLATELET COUNT 241 K/uL (156-360)
[2017-09-10 23:51] LABS: INTER. NORMALIZED RATIO 1.2
[2017-09-10 23:53] LABS: ALBUMIN 3.7 g/dL (3.2-4.8); CHLORIDE 89 mEq/L (99-109); POTASSIUM 3.8 mEq/L (3.7-5.4); SODIUM 137 mEq/L (136-147)
[2017-09-10 23:53] LABS: PTT 29.3 SEC (25-37)
[2017-09-10 23:54] LABS: MAGNESIUM 1.9 mg/dL (1.3-2.7)
[2017-09-10 23:55] LABS: GLUCOSE 99 mg/dL (70-99); TOTAL PROTEIN 6.3 g/dL (6.4-8.3)
[2017-09-10 23:57] LABS: TOTAL BILIRUBIN 0.8 mg/dL (0.0-1.0)
[2017-09-10 23:59] LABS: ALKALINE PHOSPHATASE 106 IU/L (3-129); CREATININE 6.3 mg/dL (0.6-1.3); GFR ESTIMATE (CALCULATED) 8 mL/min/
[2017-09-11] LABS: UREA NITROGEN (BUN) 25 mg/dL (9-23)
[2017-09-11 00:01] LABS: AST (GOT) 11 IU/L (2-34)
[2017-09-11 00:02] LABS: ALT (GPT) < 3 IU/L (3-49); LIPASE 1 U/L (1.0-51.0)
[2017-09-11 03:41] VITALS: BP 192/121
== END 2017-09-11 03:41 | disposition home or self-care (01) ==
LOC: EME 22:47
PROVIDERS: Emergency Medicine
DX: I12.0 Hypertensive chronic kidney disease with stage 5 chronic kidney disease or end stage renal disease (principal); N18.6 End stage renal disease; N17.9 Acute kidney failure, unspecified; R10.9 Unspecified abdominal pain; G89.29 Other chronic pain; R11.2 Nausea with vomiting, unspecified; Z99.2 Dependence on renal dialysis; E78.5 Hyperlipidemia, unspecified; K21.9 Gastro-esophageal reflux disease without esophagitis; K31.84 Gastroparesis; R56.9 Unspecified convulsions; F41.9 Anxiety disorder, unspecified; F32.9 Major depressive disorder, single episode, unspecified; F17.200 Nicotine dependence, unspecified, uncomplicated; Z90.49 Acquired absence of other specified parts of digestive tract; Z79.01 Long term (current) use of anticoagulants; Z88.1 Allergy status to other antibiotic agents; Z88.8 Allergy status to other drugs, medicaments and biological substances
CPT/HCPCS: 80053; 81003; 83690; 83735; 85025; 85610; 85730; 93005; 99281; 99285; J0780; J7050

== ENCOUNTER 2017-09-13 17:58 | Inpatient (IN) | payer OTHER ==
[~2017-09-13] VITALS: Ht 157.5 cm; Wt 42.9 kg
[2017-09-13 19:19] LABS: HEMOGLOBIN 7.7 G/DL (11.9-15.5); MCH 31.4 PG (29.0-34.0); MCHC 32.1 G/DL (30.0-36.0); RBC DIS.WIDTH-CV 16.6 % (11.8-14.6); RBC DIS.WIDTH-SD 59.3 % (39-53); RED BLOOD COUNT 2.45 M/uL (3.80-5.20)
[2017-09-13 19:25] LABS: ALBUMIN 3.6 g/dL (3.2-4.8); CHLORIDE 91 mEq/L (99-109); POTASSIUM 3.8 mEq/L (3.7-5.4); SODIUM 142 mEq/L (136-147)
[2017-09-13 19:27] LABS: GLUCOSE 88 mg/dL (70-99)
[2017-09-13 19:31] LABS: ALKALINE PHOSPHATASE 93 IU/L (3-129)
[2017-09-13 19:32] LABS: UREA NITROGEN (BUN) 14 mg/dL (9-23)
[2017-09-13 19:33] LABS: AST (GOT) 10 IU/L (2-34)
[2017-09-13 19:34] LABS: ALT (GPT) < 3 IU/L (3-49); LIPASE 20 U/L (1.0-51.0)
[2017-09-13 19:40] LABS: QUANTITATIVE HCG < 4.0 MIU/ML
[2017-09-13 19:46] LABS: CARBON DIOXIDE (BICARBONATE) > 40.0 mEq/L (20-31); CREATININE 2.5 mg/dL (0.6-1.3); GFR ESTIMATE (CALCULATED) 23 mL/min/; TOTAL BILIRUBIN 0.6 mg/dL (0.0-1.0)
[2017-09-13 20:52] LABS: PLAT.SUFFICIENCY ADEQUATE
[2017-09-13 20:55] LABS: PLATELET COUNT 163 K/uL (156-360)
[2017-09-13] MEDS ORDERED: PHENADOZ25 MG PR (23:15)
[2017-09-13 23:34] LABS: BASE EXCESS 21.3 mEq/L (-3 to +3); BICARBONATE 46.5 mEq/L (22-26); CARBOXY HGB 4.5 % (0-5); COMMENTS - BLOOD GASES C+A+; DEVICE ROOM AIR; FI02 21 %; METHEMOGLOBIN 0.7 % (0-1.5); PCO2 57 mm Hg (35-45); PO2 50 mm Hg (80-100); SITE RR; pH 7.52 (7.35-7.45)
[2017-09-14] VITALS (7 sets, daily range): BP systolic 156–230; BP diastolic 93–127
[2017-09-14 06:01] LABS: HEMATOCRIT 24.6 % (36.0-46.0); HEMOGLOBIN 7.8 G/DL (11.9-15.5); MCH 31.1 PG (29.0-34.0); MCHC 31.7 G/DL (30.0-36.0); PLATELET COUNT 161 K/uL (156-360); RBC DIS.WIDTH-CV 16.7 % (11.8-14.6); RBC DIS.WIDTH-SD 59.7 % (39-53); RED BLOOD COUNT 2.51 M/uL (3.80-5.20); WHITE BLOOD COUNT 6.3 K/uL (4.1-10.2)
[2017-09-14 06:08] LABS: INTER. NORMALIZED RATIO 1.1
[2017-09-15] VITALS (10 sets, daily range): BP systolic 190–225; BP diastolic 96–133
[2017-09-15 10:25] LABS: INTER. NORMALIZED RATIO 1.2
[2017-09-15 11:10] LABS: BASOPHIL (%) 0.6 % (0-1); EOSINOPHIL (%) 4.3 % (0-5); EOSINOPHIL COUNT 0.3 K/uL (0-0.3); HEMATOCRIT 24.4 % (36.0-46.0); HEMOGLOBIN 7.8 G/DL (11.9-15.5); IMMATURE GRANULOCYTE (%) 0.4 % (0.0-0.7); LYMPHOCYTE (%) 17.7 % (15-42); LYMPHOCYTE COUNT 1.3 K/uL (1.0-2.8); MCH 31.3 PG (29.0-34.0); MONOCYTE (%) 7.7 % (3-12); MONOCYTE COUNT 0.6 K/uL (0-0.8); NEUTROPHIL (%) 69.3 % (45-76); NEUTROPHIL COUNT 4.9 K/uL (1.8-6.4); PLATELET COUNT 180 K/uL (156-360); RBC DIS.WIDTH-CV 17.1 % (11.8-14.6); RBC DIS.WIDTH-SD 60.1 % (39-53); RED BLOOD COUNT 2.49 M/uL (3.80-5.20); WHITE BLOOD COUNT 7.1 K/uL (4.1-10.2)
[2017-09-15 12:38] LABS: ALBUMIN 3.6 G/DL (3.2-4.8); CHLORIDE 91 MEQ/L (99-109); GFR ESTIMATE (CALCULATED) 11 mL/min/; GLUCOSE 98 mg/dL (70-99); PHOSPHORUS 4.2 mg/dL (2.5-4.9); POTASSIUM 4.3 MEQ/L (3.7-5.4); SODIUM 137 MEQ/L (136-147)
[2017-09-15 13:00] LABS: UREA NITROGEN (BUN) 28 mg/dL (9-23)
[2017-09-16] VITALS (8 sets, daily range): BP systolic 119–199; BP diastolic 75–115
[2017-09-16 05:59] LABS: INTER. NORMALIZED RATIO 1.8
[2017-09-17 08:14] LABS: BASOPHIL (%) 0.7 % (0-1); EOSINOPHIL (%) 5.4 % (0-5); EOSINOPHIL COUNT 0.2 K/uL (0-0.3); HEMATOCRIT 26.5 % (36.0-46.0); HEMOGLOBIN 8.4 G/DL (11.9-15.5); IMMATURE GRANULOCYTE (%) 0.4 % (0.0-0.7); LYMPHOCYTE COUNT 1.1 K/uL (1.0-2.8); MCH 30.9 PG (29.0-34.0); MCHC 31.7 G/DL (30.0-36.0); MCV 97.4 FL (83-99); MONOCYTE (%) 11.6 % (3-12); MONOCYTE COUNT 0.5 K/uL (0-0.8); NEUTROPHIL (%) 56.9 % (45-76); NEUTROPHIL COUNT 2.6 K/uL (1.8-6.4); PLATELET COUNT 189 K/uL (156-360); RBC DIS.WIDTH-CV 17.2 % (11.8-14.6); RBC DIS.WIDTH-SD 61.1 % (39-53); RED BLOOD COUNT 2.72 M/uL (3.80-5.20); WHITE BLOOD COUNT 4.5 K/uL (4.1-10.2)
[2017-09-17 08:23] LABS: ALBUMIN 3.7 G/DL (3.2-4.8); CHLORIDE 96 MEQ/L (99-109); SODIUM 135 MEQ/L (136-147)
[2017-09-17 08:29] LABS: CREATININE 5.4 MG/DL (0.6-1.3); GFR ESTIMATE (CALCULATED) 10 mL/min/; GLUCOSE 100 mg/dL (70-99); PHOSPHORUS 4.1 mg/dL (2.5-4.9); UREA NITROGEN (BUN) 33 mg/dL (9-23)
[2017-09-17 08:49] LABS: INTER. NORMALIZED RATIO 1.6
[2017-09-17] MEDS ORDERED: PHENADOZ25 MG PR (10:19)
[2017-09-17] MEDS ORDERED: TRAMADOL HCL50 MG PO (10:19)
[2017-09-17] MEDS ORDERED: CLONIDINE1 EAC2 TD (10:19)
[2017-09-17] MEDS ORDERED: ZOFRAN ODT8 MG PO (10:19)
== END 2017-09-17 11:42 | disposition home or self-care (01) | DRG 682 ==
LOC: EME 17:58 → 4EAST 09-14 00:10 → EDOF 09-14 00:10 → ENRESERV 09-14 00:11 → EDOF 09-14 01:40 → ENRESERV 09-14 02:13 → 4EAST 09-14 03:23
PROVIDERS: Emergency Medicine; Hospitalist; Internal Medicine Nephrology
PROC: 5A1D70Z Performance of Urinary Filtration, Intermittent, Less than 6 Hours Per Day (ICD-10-PCS; principal; 2017-09-15)
DX: I12.0 Hypertensive chronic kidney disease with stage 5 chronic kidney disease or end stage renal disease (principal); N18.6 End stage renal disease; K31.84 Gastroparesis; I48.0 Paroxysmal atrial fibrillation; K21.9 Gastro-esophageal reflux disease without esophagitis; G40.909 Epilepsy, unspecified, not intractable, without status epilepticus; Z99.2 Dependence on renal dialysis; Z94.0 Kidney transplant status; D50.9 Iron deficiency anemia, unspecified; D63.1 Anemia in chronic kidney disease; E78.5 Hyperlipidemia, unspecified; E87.3 Alkalosis; F17.210 Nicotine dependence, cigarettes, uncomplicated; G89.29 Other chronic pain; Z91.14 Patient's other noncompliance with medication regimen; F32.9 Major depressive disorder, single episode, unspecified; F41.9 Anxiety disorder, unspecified; Z86.718 Personal history of other venous thrombosis and embolism; N25.81 Secondary hyperparathyroidism of renal origin; I87.8 Other specified disorders of veins
CPT/HCPCS: 36600; 80048; 80053; 80069; 81003; 82803; 83690; 83735; 84702; 85025; 85027; 85610; 85730; 87177; 87493; 93005; 99281; 99285; J0360; J0780; J1170; J2060; J2270; J2405; J7050; S0028

== ENCOUNTER 2017-09-19 12:47 | Emergency (ER) | payer OTHER ==
[~2017-09-19] VITALS: Ht 157.5 cm; Wt 42.7 kg
[~2017-09-19 12:47] MED LIST changes: +PHENADOZ25 MG PR; +TRAMADOL HCL50 MG PO; +ZOFRAN ODT8 MG PO
[2017-09-19 15:10] LABS: BASOPHIL (%) 0.5 % (0-1); EOSINOPHIL (%) 2.2 % (0-5); EOSINOPHIL COUNT 0.1 K/uL (0-0.3); HEMATOCRIT 24.3 % (36.0-46.0); IMMATURE GRANULOCYTE (%) 0.5 % (0.0-0.7); LYMPHOCYTE (%) 20.4 % (15-42); LYMPHOCYTE COUNT 1.2 K/uL (1.0-2.8); MCH 31.7 PG (29.0-34.0); MCHC 32.9 G/DL (30.0-36.0); MCV 96.4 FL (83-99); MONOCYTE COUNT 0.7 K/uL (0-0.8); NEUTROPHIL (%) 65.4 % (45-76); NEUTROPHIL COUNT 3.9 K/uL (1.8-6.4); PLATELET COUNT 183 K/uL (156-360); RBC DIS.WIDTH-CV 16.7 % (11.8-14.6); RBC DIS.WIDTH-SD 58.8 % (39-53); RED BLOOD COUNT 2.52 M/uL (3.80-5.20); WHITE BLOOD COUNT 5.9 K/uL (4.1-10.2)
[2017-09-19 15:21] LABS: INTER. NORMALIZED RATIO 1.3
[2017-09-19 15:24] LABS: ALBUMIN 3.6 g/dL (3.2-4.8)
[2017-09-19 15:25] LABS: CHLORIDE 100 mEq/L (99-109); SODIUM 137 mEq/L (136-147)
[2017-09-19 15:27] LABS: GLUCOSE 86 mg/dL (70-99); TOTAL PROTEIN 5.8 g/dL (6.4-8.3)
[2017-09-19 15:29] LABS: POTASSIUM 4.9 mEq/L (3.7-5.4); TOTAL BILIRUBIN 0.5 mg/dL (0.0-1.0)
[2017-09-19 15:30] LABS: ALKALINE PHOSPHATASE 100 IU/L (3-129)
[2017-09-19 15:31] LABS: CREATININE 5.8 mg/dL (0.6-1.3); GFR ESTIMATE (CALCULATED) 9 mL/min/
[2017-09-19 15:32] LABS: AST (GOT) 11 IU/L (2-34)
[2017-09-19 15:33] LABS: ALT (GPT) 4 IU/L (3-49); UREA NITROGEN (BUN) 80 mg/dL (9-23)
[2017-09-19 15:34] LABS: TROP-I INTERPRETATION NEGATIVE; TROPONIN-I < 0.01 ng/mL (0.0-0.30)
[2017-09-19 15:39] LABS: QUANTITATIVE HCG < 4.0 MIU/ML
[2017-09-19 17:15] VITALS: BP 175/114
== END 2017-09-19 17:14 | disposition left against medical advice (07) ==
LOC: EME 12:47
PROVIDERS: Emergency Medicine
DX: I16.0 Hypertensive urgency (principal); K31.84 Gastroparesis; I12.0 Hypertensive chronic kidney disease with stage 5 chronic kidney disease or end stage renal disease; N18.6 End stage renal disease; Z99.2 Dependence on renal dialysis; Z94.0 Kidney transplant status; G89.29 Other chronic pain; T46.5X6A Underdosing of other antihypertensive drugs, initial encounter; Z91.14 Patient's other noncompliance with medication regimen; K21.9 Gastro-esophageal reflux disease without esophagitis; F17.200 Nicotine dependence, unspecified, uncomplicated; E78.5 Hyperlipidemia, unspecified; D64.9 Anemia, unspecified; F32.9 Major depressive disorder, single episode, unspecified; F41.9 Anxiety disorder, unspecified; R56.9 Unspecified convulsions; Z88.1 Allergy status to other antibiotic agents
CPT/HCPCS: 80053; 84484; 84702; 85025; 85610; 93005; 99281; 99284; C9113; J0780; J2270; J2405

== ENCOUNTER 2017-10-01 14:17 | Emergency (ER) | payer OTHER ==
[~2017-10-01] VITALS: Ht 157.5 cm; Wt 45.0 kg
[2017-10-01 15:07] LABS: BASOPHIL (%) 0.7 % (0-1); EOSINOPHIL (%) 3.9 % (0-5); EOSINOPHIL COUNT 0.2 K/uL (0-0.3); HEMATOCRIT 27.1 % (36.0-46.0); IMMATURE GRANULOCYTE (%) 0.5 % (0.0-0.7); LYMPHOCYTE COUNT 0.8 K/uL (1.0-2.8); MCH 32.4 PG (29.0-34.0); MCHC 33.2 G/DL (30.0-36.0); MCV 97.5 FL (83-99); MONOCYTE (%) 10.8 % (3-12); MONOCYTE COUNT 0.4 K/uL (0-0.8); NEUTROPHIL (%) 65.1 % (45-76); NEUTROPHIL COUNT 2.6 K/uL (1.8-6.4); PLATELET COUNT 178 K/uL (156-360); RBC DIS.WIDTH-CV 16.6 % (11.8-14.6); RBC DIS.WIDTH-SD 59.4 % (39-53); RED BLOOD COUNT 2.78 M/uL (3.80-5.20); WHITE BLOOD COUNT 4.1 K/uL (4.1-10.2)
[2017-10-01 15:16] LABS: ALBUMIN 4.2 g/dL (3.2-4.8); CHLORIDE 90 mEq/L (99-109); POTASSIUM 3.3 mEq/L (3.7-5.4); SODIUM 141 mEq/L (136-147)
[2017-10-01 15:18] LABS: GLUCOSE 115 mg/dL (70-99); TOTAL PROTEIN 6.9 g/dL (6.4-8.3)
[2017-10-01 15:20] LABS: TOTAL BILIRUBIN 0.9 mg/dL (0.0-1.0)
[2017-10-01 15:22] LABS: ALKALINE PHOSPHATASE 123 IU/L (3-129); CREATININE 2.1 mg/dL (0.6-1.3); GFR ESTIMATE (CALCULATED) 29 mL/min/
[2017-10-01 15:23] LABS: UREA NITROGEN (BUN) 12 mg/dL (9-23)
[2017-10-01 15:24] LABS: AST (GOT) 19 IU/L (2-34)
[2017-10-01 15:25] LABS: ALT (GPT) 9 IU/L (3-49); LIPASE 25 U/L (1.0-51.0)
[2017-10-01 16:28] LABS: VENOUS PCO2 53 mm Hg (41-51)
[2017-10-01 16:29] LABS: CARBON DIOXIDE (BICARBONATE) > 40.0 MEQ/L (20-31)
[2017-10-01] MEDS ORDERED: OXAYDO5 MG PO (21:10)
[2017-10-01] MEDS ORDERED: LYRICA25 MG PO (21:10)
[2017-10-02 01:00] VITALS: BP 195/133
== END 2017-10-02 01:53 | disposition home or self-care (01) ==
LOC: EME 14:17
PROVIDERS: Emergency Medicine
DX: R10.9 Unspecified abdominal pain (principal); R11.2 Nausea with vomiting, unspecified; T86.12 Kidney transplant failure; I12.0 Hypertensive chronic kidney disease with stage 5 chronic kidney disease or end stage renal disease; N18.6 End stage renal disease; K31.84 Gastroparesis; Z99.2 Dependence on renal dialysis; K21.9 Gastro-esophageal reflux disease without esophagitis; F41.9 Anxiety disorder, unspecified; F32.9 Major depressive disorder, single episode, unspecified; F10.10 Alcohol abuse, uncomplicated; E78.5 Hyperlipidemia, unspecified; Z79.82 Long term (current) use of aspirin; Z88.1 Allergy status to other antibiotic agents; F17.200 Nicotine dependence, unspecified, uncomplicated; E87.3 Alkalosis
CPT/HCPCS: 80053; 82803; 83605; 83690; 85025; 99281; 99285; J0780; J1200; J1630; J2270

== ENCOUNTER 2017-10-26 14:45 | Inpatient (IN) | payer OTHER ==
[~2017-10-26] VITALS: Ht 157.5 cm; Wt 46.5 kg
[~2017-10-26 14:45] MED LIST changes: -COUMADIN7.5 MG PO; +OXAYDO5 MG PO
[2017-10-26 15:40] LABS: ALBUMIN 4.8 g/dL (3.2-4.8)
[2017-10-26 15:41] LABS: CHLORIDE 89 mEq/L (99-109); HEMATOCRIT 36.7 % (36.0-46.0); HEMOGLOBIN 12.5 G/DL (11.9-15.5); MCH 33.7 PG (29.0-34.0); MCHC 34.1 G/DL (30.0-36.0); MCV 98.9 FL (83-99); PLATELET COUNT 172 K/uL (156-360); POTASSIUM 5.2 mEq/L (3.7-5.4); RBC DIS.WIDTH-CV 15.6 % (11.8-14.6); RBC DIS.WIDTH-SD 56.9 % (39-53); RED BLOOD COUNT 3.71 M/uL (3.80-5.20); SODIUM 142 mEq/L (136-147); WHITE BLOOD COUNT 5.7 K/uL (4.1-10.2)
[2017-10-26 15:43] LABS: GLUCOSE 132 mg/dL (70-99); TOTAL PROTEIN 7.8 g/dL (6.4-8.3)
[2017-10-26 15:45] LABS: TOTAL BILIRUBIN 0.9 mg/dL (0.0-1.0)
[2017-10-26 15:47] LABS: ALKALINE PHOSPHATASE 121 IU/L (3-129); CREATININE 4.9 mg/dL (0.6-1.3); GFR ESTIMATE (CALCULATED) 11 mL/min/
[2017-10-26 15:48] LABS: UREA NITROGEN (BUN) 39 mg/dL (9-23)
[2017-10-26 15:49] LABS: AST (GOT) 19 IU/L (2-34)
[2017-10-26 15:50] LABS: ALT (GPT) 10 IU/L (3-49); LIPASE 9 U/L (1.0-51.0)
[2017-10-26 15:56] LABS: QUANTITATIVE HCG < 4.0 MIU/ML
[2017-10-26 16:34] LABS: INTER. NORMALIZED RATIO 1.1
[2017-10-26 22:25] VITALS: BP 232/155
[2017-10-26 22:50] VITALS: BP 232/155
[2017-10-26 23:00] VITALS: BP 159/110
[2017-10-27] VITALS (28 sets, daily range): BP systolic 107–188; BP diastolic 64–122
[2017-10-27 06:16] LABS: CHLORIDE 91 MEQ/L (99-109); CREATININE 5.1 MG/DL (0.6-1.3); GFR ESTIMATE (CALCULATED) 10 mL/min/; POTASSIUM 5.1 MEQ/L (3.7-5.4); SODIUM 136 MEQ/L (136-147); UREA NITROGEN (BUN) 45 mg/dL (9-23)
[2017-10-27 06:19] LABS: GLUCOSE 90 mg/dL (70-99)
[2017-10-27 06:22] LABS: INTER. NORMALIZED RATIO 1.1
[2017-10-27 06:24] LABS: PTT 28.7 SEC (25-37)
[2017-10-27 08:53] LABS: BASOPHIL (%) 0.6 % (0-1); EOSINOPHIL (%) 1.1 % (0-5); EOSINOPHIL COUNT 0.1 K/uL (0-0.3); HEMATOCRIT 30.3 % (36.0-46.0); IMMATURE GRANULOCYTE (%) 0.2 % (0.0-0.7); LYMPHOCYTE (%) 18.9 % (15-42); LYMPHOCYTE COUNT 1.2 K/uL (1.0-2.8); MCH 32.6 PG (29.0-34.0); MCV 101.7 FL (83-99); MONOCYTE (%) 9.3 % (3-12); MONOCYTE COUNT 0.6 K/uL (0-0.8); NEUTROPHIL (%) 69.9 % (45-76); NEUTROPHIL COUNT 4.5 K/uL (1.8-6.4); PLATELET COUNT 145 K/uL (156-360); RBC DIS.WIDTH-CV 15.9 % (11.8-14.6); RBC DIS.WIDTH-SD 58.9 % (39-53); RED BLOOD COUNT 2.98 M/uL (3.80-5.20); WHITE BLOOD COUNT 6.5 K/uL (4.1-10.2)
[2017-10-27 08:55] LABS: HEMOGLOBIN 9.7 G/DL (11.9-15.5)
[2017-10-27 09:15] LABS: ALBUMIN 4.1 G/DL (3.2-4.8); CHLORIDE 89 MEQ/L (99-109); CREATININE 5.4 MG/DL (0.6-1.3); GFR ESTIMATE (CALCULATED) 10 mL/min/; GLUCOSE 80 mg/dL (70-99); PHOSPHORUS 6.8 mg/dL (2.5-4.9); SODIUM 136 MEQ/L (136-147); UREA NITROGEN (BUN) 46 mg/dL (9-23)
[2017-10-28] VITALS (14 sets, daily range): BP systolic 108–192; BP diastolic 68–111
[2017-10-28 18:47] LABS: INTER. NORMALIZED RATIO 1.1
[2017-10-29 07:25] VITALS: BP 210/110
[2017-10-29 09:58] LABS: HEMATOCRIT 28.2 % (36.0-46.0); HEMOGLOBIN 9.3 G/DL (11.9-15.5); MCH 32.9 PG (29.0-34.0); MCV 99.6 FL (83-99); PLATELET COUNT 147 K/uL (156-360); RBC DIS.WIDTH-SD 55.6 % (39-53); RED BLOOD COUNT 2.83 M/uL (3.80-5.20); WHITE BLOOD COUNT 5.5 K/uL (4.1-10.2)
[2017-10-29 10:03] LABS: INTER. NORMALIZED RATIO 1.1
[2017-10-29 10:16] LABS: ALBUMIN 3.9 G/DL (3.2-4.8); CHLORIDE 96 MEQ/L (99-109); CREATININE 5.5 MG/DL (0.6-1.3); GFR ESTIMATE (CALCULATED) 9 mL/min/; GLUCOSE 90 mg/dL (70-99); PHOSPHORUS 7.7 mg/dL (2.5-4.9); POTASSIUM 4.3 MEQ/L (3.7-5.4); SODIUM 135 MEQ/L (136-147); UREA NITROGEN (BUN) 43 mg/dL (9-23)
[2017-10-29 13:50] VITALS: BP 150/103
[2017-10-29 16:01] VITALS: BP 158/90
[2017-10-29 20:15] VITALS: BP 182/109
[2017-10-29 22:39] VITALS: BP 136/97
[2017-10-30 01:19] VITALS: BP 153/87
[2017-10-30 03:59] VITALS: BP 154/98
[2017-10-30 06:41] VITALS: BP 119/84
[2017-10-30 07:54] LABS: INTER. NORMALIZED RATIO 1.1
[2017-10-30 10:15] VITALS: BP 161/96
[2017-10-30 15:58] VITALS: BP 174/99
[2017-10-30 18:18] VITALS: BP 160/99
[2017-10-31 00:30] VITALS: BP 159/87
[2017-10-31 07:50] VITALS: BP 111/72
[2017-10-31 09:16] LABS: INTER. NORMALIZED RATIO 1.4
== END 2017-10-31 11:52 | disposition home or self-care (01) | DRG 391 ==
LOC: EME 14:45 → EDOF 21:29 → 4WEST 21:29 → ENRESERV 21:31 → 4WEST 22:28 → ENRESERV 10-28 08:58 → 4WEST 10-28 10:45 → ENRESERV 10-28 11:49 → 2EAST 10-28 12:42
PROVIDERS: Emergency Medicine; Internal Medicine; Internal Medicine Nephrology; Surgery
PROC: 5A1D70Z Performance of Urinary Filtration, Intermittent, Less than 6 Hours Per Day (ICD-10-PCS; principal; 2017-10-27)
DX: K31.84 Gastroparesis (principal); I16.1 Hypertensive emergency; I12.0 Hypertensive chronic kidney disease with stage 5 chronic kidney disease or end stage renal disease; N18.6 End stage renal disease; T86.12 Kidney transplant failure; Y83.0 Surgical operation with transplant of whole organ as the cause of abnormal reaction of the patient, or of later complication, without mention of misadventure at the time of the procedure; N25.81 Secondary hyperparathyroidism of renal origin; G60.0 Hereditary motor and sensory neuropathy; F11.20 Opioid dependence, uncomplicated; D63.1 Anemia in chronic kidney disease; K21.9 Gastro-esophageal reflux disease without esophagitis; F41.9 Anxiety disorder, unspecified; F32.9 Major depressive disorder, single episode, unspecified; G89.29 Other chronic pain; I87.8 Other specified disorders of veins; G40.909 Epilepsy, unspecified, not intractable, without status epilepticus; F17.200 Nicotine dependence, unspecified, uncomplicated; Z96.89 Presence of other specified functional implants; Z99.2 Dependence on renal dialysis; Z79.01 Long term (current) use of anticoagulants; Z91.14 Patient's other noncompliance with medication regimen; Z86.718 Personal history of other venous thrombosis and embolism; Z82.49 Family history of ischemic heart disease and other diseases of the circulatory system
CPT/HCPCS: 80048; 80053; 80069; 83690; 84702; 85025; 85027; 85610; 85730; 87641; 94799; 99281; 99285; J0360; J0881; J1270; J1644; J2405; J3010; J7040; J7050

== ENCOUNTER 2017-11-13 11:56 | Observation (INO) | payer OTHER ==
[~2017-11-13] VITALS: Ht 157.5 cm; Wt 44.0 kg
[2017-11-13 15:40] LABS: HEMATOCRIT 39.1 % (36.0-46.0); HEMOGLOBIN 13.2 G/DL (11.9-15.5); MCH 33.3 PG (29.0-34.0); MCHC 33.8 G/DL (30.0-36.0); MCV 98.7 FL (83-99); PLATELET COUNT 260 K/uL (156-360); RBC DIS.WIDTH-CV 14.5 % (11.8-14.6); RBC DIS.WIDTH-SD 52.7 % (39-53); RED BLOOD COUNT 3.96 M/uL (3.80-5.20); WHITE BLOOD COUNT 8.7 K/uL (4.1-10.2)
[2017-11-13 15:52] LABS: CHLORIDE 87 mEq/L (99-109); POTASSIUM 5.3 mEq/L (3.7-5.4); SODIUM 141 mEq/L (136-147)
[2017-11-13 15:54] LABS: GLUCOSE 109 mg/dL (70-99)
[2017-11-13 15:58] LABS: CREATININE 4.9 mg/dL (0.6-1.3); GFR ESTIMATE (CALCULATED) 11 mL/min/; UREA NITROGEN (BUN) 47 mg/dL (9-23)
[2017-11-13 18:30] LABS: INTER. NORMALIZED RATIO 1.1
[2017-11-13 21:25] VITALS: BP 184/120
[2017-11-13 22:05] VITALS: BP 173/113
[2017-11-14 00:34] VITALS: BP 118/73
[2017-11-14 06:08] VITALS: BP 99/58
[2017-11-14 08:09] VITALS: BP 127/85
[2017-11-14] MEDS ORDERED: PHENADOZ25 MG PR (09:22)
== END 2017-11-14 10:05 | disposition home or self-care (01) ==
LOC: EME 11:56 → 4EAST 17:11 → EDOF 17:11 → 4EAST 17:11 → ENRESERV 17:13 → 4EAST 20:54
PROVIDERS: Emergency Medicine; Internal Medicine
DX: I16.0 Hypertensive urgency (principal); K31.84 Gastroparesis; I12.0 Hypertensive chronic kidney disease with stage 5 chronic kidney disease or end stage renal disease; N18.6 End stage renal disease; Z99.2 Dependence on renal dialysis; N25.81 Secondary hyperparathyroidism of renal origin; G89.29 Other chronic pain; G40.909 Epilepsy, unspecified, not intractable, without status epilepticus; F32.9 Major depressive disorder, single episode, unspecified; F41.9 Anxiety disorder, unspecified; D63.1 Anemia in chronic kidney disease; Z86.718 Personal history of other venous thrombosis and embolism; G43.909 Migraine, unspecified, not intractable, without status migrainosus; T86.12 Kidney transplant failure; I87.8 Other specified disorders of veins; F17.200 Nicotine dependence, unspecified, uncomplicated; Z82.49 Family history of ischemic heart disease and other diseases of the circulatory system; Z79.01 Long term (current) use of anticoagulants; Z88.1 Allergy status to other antibiotic agents; Z88.8 Allergy status to other drugs, medicaments and biological substances; Z91.041 Radiographic dye allergy status
CPT/HCPCS: 80048; 85027; 85610; 87641; 99281; 99285; G0378; J0360; J1630; Q0164

== ENCOUNTER 2017-11-20 13:44 | Emergency (ER) | payer OTHER ==
[~2017-11-20] VITALS: Ht 157.5 cm; Wt 48.4 kg
[2017-11-20 20:09] VITALS: BP 179/119
== END 2017-11-20 20:10 | disposition home or self-care (01) ==
LOC: EME 13:44
DX: I12.0 Hypertensive chronic kidney disease with stage 5 chronic kidney disease or end stage renal disease (principal); N18.6 End stage renal disease; K31.84 Gastroparesis; K21.9 Gastro-esophageal reflux disease without esophagitis; E78.5 Hyperlipidemia, unspecified; F41.9 Anxiety disorder, unspecified; F32.9 Major depressive disorder, single episode, unspecified; F17.200 Nicotine dependence, unspecified, uncomplicated; Z99.2 Dependence on renal dialysis; Z79.01 Long term (current) use of anticoagulants; Z94.0 Kidney transplant status; Z91.14 Patient's other noncompliance with medication regimen; Z96.89 Presence of other specified functional implants; Z90.49 Acquired absence of other specified parts of digestive tract; Z98.890 Other specified postprocedural states; Z87.448 Personal history of other diseases of urinary system; Z88.1 Allergy status to other antibiotic agents; Z88.8 Allergy status to other drugs, medicaments and biological substances
CPT/HCPCS: 99281; 99285; J0360; J1200; J1630; J2060

== ENCOUNTER 2017-11-27 10:03 | Emergency (ER) | payer OTHER ==
[~2017-11-27] VITALS: Ht 157.5 cm; Wt 50.1 kg
[2017-11-27 11:16] LABS: HEMATOCRIT 32.2 % (36.0-46.0); MCH 33.6 PG (29.0-34.0); MCHC 34.2 G/DL (30.0-36.0); MCV 98.5 FL (83-99); RBC DIS.WIDTH-CV 14.4 % (11.8-14.6); RBC DIS.WIDTH-SD 51.8 % (39-53); RED BLOOD COUNT 3.27 M/uL (3.80-5.20); WHITE BLOOD COUNT 6.7 K/uL (4.1-10.2)
[2017-11-27 11:26] LABS: ALBUMIN 4.3 g/dL (3.2-4.8)
[2017-11-27 11:27] LABS: CHLORIDE 85 mEq/L (99-109); POTASSIUM 4.8 mEq/L (3.7-5.4); SODIUM 136 mEq/L (136-147)
[2017-11-27 11:29] LABS: GLUCOSE 96 mg/dL (70-99); PTT 39.9 SEC (25-37); TOTAL PROTEIN 7.1 g/dL (6.4-8.3)
[2017-11-27 11:31] LABS: TOTAL BILIRUBIN 0.6 mg/dL (0.0-1.0)
[2017-11-27 11:32] LABS: ALKALINE PHOSPHATASE 92 IU/L (3-129)
[2017-11-27 11:33] LABS: CREATININE 4.2 mg/dL (0.6-1.3); GFR ESTIMATE (CALCULATED) 13 mL/min/
[2017-11-27 11:34] LABS: AST (GOT) 17 IU/L (2-34); UREA NITROGEN (BUN) 41 mg/dL (9-23)
[2017-11-27 11:36] LABS: ALT (GPT) 11 IU/L (3-49); LIPASE 66 U/L (1.0-51.0)
[2017-11-27 11:58] LABS: PLAT.SUFFICIENCY ADEQUATE
[2017-11-27 12:05] LABS: PLATELET COUNT 166 K/uL (156-360)
[2017-11-27 18:38] VITALS: BP 220/123
== END 2017-11-27 19:21 | disposition home or self-care (01) ==
LOC: EME → EDBD 10:03 → EME 19:21
PROVIDERS: Emergency Medicine Emergency Medical Services
DX: R10.9 Unspecified abdominal pain (principal); R11.2 Nausea with vomiting, unspecified; G44.209 Tension-type headache, unspecified, not intractable; N18.9 Chronic kidney disease, unspecified; Z99.2 Dependence on renal dialysis; D64.9 Anemia, unspecified; K21.9 Gastro-esophageal reflux disease without esophagitis; E78.5 Hyperlipidemia, unspecified; R56.9 Unspecified convulsions; F41.9 Anxiety disorder, unspecified; F32.9 Major depressive disorder, single episode, unspecified; Z94.0 Kidney transplant status; Z90.49 Acquired absence of other specified parts of digestive tract; Z79.01 Long term (current) use of anticoagulants; Z72.0 Tobacco use; Z88.1 Allergy status to other antibiotic agents; Z88.8 Allergy status to other drugs, medicaments and biological substances
CPT/HCPCS: 71045; 74022; 80053; 83690; 85027; 85610; 85730; 93005; 99281; 99285; J0780; J2060; J2405; J3010; J7040

== ENCOUNTER 2017-11-29 21:24 | Emergency (ER) | payer OTHER ==
[~2017-11-29] VITALS: Ht 157.5 cm; Wt 46.1 kg
[2017-11-29 23:11] LABS: HEMATOCRIT 29.4 % (36.0-46.0); HEMOGLOBIN 10.2 G/DL (11.9-15.5); MCH 34.6 PG (29.0-34.0); MCHC 34.7 G/DL (30.0-36.0); MCV 99.7 FL (83-99); PLATELET COUNT 196 K/uL (156-360); RBC DIS.WIDTH-CV 14.3 % (11.8-14.6); RBC DIS.WIDTH-SD 51.8 % (39-53); RED BLOOD COUNT 2.95 M/uL (3.80-5.20); WHITE BLOOD COUNT 7.2 K/uL (4.1-10.2)
[2017-11-29 23:19] LABS: ALBUMIN 4.1 g/dL (3.2-4.8)
[2017-11-29 23:20] LABS: CHLORIDE 86 mEq/L (99-109); POTASSIUM 4.1 mEq/L (3.7-5.4); SODIUM 137 mEq/L (136-147)
[2017-11-29 23:22] LABS: GLUCOSE 90 mg/dL (70-99); TOTAL PROTEIN 6.8 g/dL (6.4-8.3)
[2017-11-29 23:24] LABS: TOTAL BILIRUBIN 0.6 mg/dL (0.0-1.0)
[2017-11-29 23:25] LABS: ALKALINE PHOSPHATASE 98 IU/L (3-129)
[2017-11-29 23:26] LABS: GFR ESTIMATE (CALCULATED) 18 mL/min/
[2017-11-29 23:27] LABS: AST (GOT) 19 IU/L (2-34); UREA NITROGEN (BUN) 38 mg/dL (9-23)
[2017-11-29 23:28] LABS: CREATININE 3.2 mg/dL (0.6-1.3)
[2017-11-29 23:29] LABS: ALT (GPT) 10 IU/L (3-49); LIPASE 39 U/L (1.0-51.0)
[2017-11-30 01:00] VITALS: BP 166/109
== END 2017-11-30 01:00 | disposition home or self-care (01) ==
LOC: EME 21:24
PROVIDERS: Nurse Practitioner Family
DX: R10.30 Lower abdominal pain, unspecified (principal); R11.10 Vomiting, unspecified; Z87.19 Personal history of other diseases of the digestive system; Z91.14 Patient's other noncompliance with medication regimen; I12.0 Hypertensive chronic kidney disease with stage 5 chronic kidney disease or end stage renal disease; N18.6 End stage renal disease; K21.9 Gastro-esophageal reflux disease without esophagitis; E78.5 Hyperlipidemia, unspecified; F41.9 Anxiety disorder, unspecified; F32.9 Major depressive disorder, single episode, unspecified; F17.200 Nicotine dependence, unspecified, uncomplicated; Z79.01 Long term (current) use of anticoagulants; Z99.2 Dependence on renal dialysis; Z96.89 Presence of other specified functional implants; Z94.0 Kidney transplant status; Z86.79 Personal history of other diseases of the circulatory system; Z90.49 Acquired absence of other specified parts of digestive tract; Z98.890 Other specified postprocedural states; Z88.1 Allergy status to other antibiotic agents; Z91.048 Other nonmedicinal substance allergy status; Z88.8 Allergy status to other drugs, medicaments and biological substances
CPT/HCPCS: 74176; 80053; 83690; 85027; 99281; 99284; J0780; J1630; J3010; J7120

== ENCOUNTER 2017-12-03 19:44 | Emergency (ER) | payer OTHER ==
[~2017-12-03] VITALS: Ht 157.5 cm; Wt 47.6 kg
[2017-12-03 20:47] LABS: HEMATOCRIT 28.9 % (36.0-46.0); HEMOGLOBIN 9.8 G/DL (11.9-15.5); MCH 33.9 PG (29.0-34.0); MCHC 33.9 G/DL (30.0-36.0); PLATELET COUNT 197 K/uL (156-360); RBC DIS.WIDTH-CV 14.9 % (11.8-14.6); RBC DIS.WIDTH-SD 53.4 % (39-53); RED BLOOD COUNT 2.89 M/uL (3.80-5.20); WHITE BLOOD COUNT 7.2 K/uL (4.1-10.2)
[2017-12-03 20:53] LABS: ALBUMIN 4.2 g/dL (3.2-4.8); CHLORIDE 89 mEq/L (99-109); POTASSIUM 3.4 mEq/L (3.7-5.4); SODIUM 141 mEq/L (136-147)
[2017-12-03 20:55] LABS: GLUCOSE 84 mg/dL (70-99); TOTAL PROTEIN 6.8 g/dL (6.4-8.3)
[2017-12-03 20:57] LABS: TOTAL BILIRUBIN 0.6 mg/dL (0.0-1.0)
[2017-12-03 20:59] LABS: ALKALINE PHOSPHATASE 82 IU/L (3-129); GFR ESTIMATE (CALCULATED) 21 mL/min/
[2017-12-03 21:00] LABS: UREA NITROGEN (BUN) 33 mg/dL (9-23)
[2017-12-03 21:01] LABS: AST (GOT) 19 IU/L (2-34)
[2017-12-03 21:02] LABS: ALT (GPT) 10 IU/L (3-49); LIPASE 45 U/L (1.0-51.0)
[2017-12-03 21:08] LABS: QUANTITATIVE HCG < 4.0 MIU/ML
[2017-12-03 21:16] LABS: CREATININE 2.7 mg/dL (0.6-1.3)
[2017-12-04 00:04] VITALS: BP 192/118
== END 2017-12-04 00:10 | disposition home or self-care (01) ==
LOC: EME → EDBD 19:44 → EME 19:44
PROVIDERS: Emergency Medicine
DX: K31.84 Gastroparesis (principal); G89.29 Other chronic pain; R10.84 Generalized abdominal pain; I12.9 Hypertensive chronic kidney disease with stage 1 through stage 4 chronic kidney disease, or unspecified chronic kidney disease; N18.9 Chronic kidney disease, unspecified; T46.5X6A Underdosing of other antihypertensive drugs, initial encounter; Z91.14 Patient's other noncompliance with medication regimen; Z99.2 Dependence on renal dialysis; Z94.0 Kidney transplant status; F32.9 Major depressive disorder, single episode, unspecified; E78.5 Hyperlipidemia, unspecified; K21.9 Gastro-esophageal reflux disease without esophagitis; F41.9 Anxiety disorder, unspecified; Z88.1 Allergy status to other antibiotic agents; Z72.0 Tobacco use
CPT/HCPCS: 71045; 80053; 83690; 84702; 85027; 99281; 99285; J0780; J1630; J2060

== ENCOUNTER 2017-12-06 16:54 | Emergency (ER) | payer OTHER ==
[~2017-12-06] VITALS: Ht 157.5 cm; Wt 44.0 kg
[2017-12-06 20:24] LABS: HEMATOCRIT 28.7 % (36.0-46.0); HEMOGLOBIN 9.9 G/DL (11.9-15.5); MCH 34.5 PG (29.0-34.0); MCHC 34.5 G/DL (30.0-36.0); PLATELET COUNT 160 K/uL (156-360); RBC DIS.WIDTH-CV 15.3 % (11.8-14.6); RBC DIS.WIDTH-SD 54.4 % (39-53); RED BLOOD COUNT 2.87 M/uL (3.80-5.20); WHITE BLOOD COUNT 6.5 K/uL (4.1-10.2)
[2017-12-06 20:36] LABS: ALBUMIN 4.1 g/dL (3.2-4.8); CHLORIDE 87 mEq/L (99-109); POTASSIUM 3.7 mEq/L (3.7-5.4); SODIUM 138 mEq/L (136-147)
[2017-12-06 20:38] LABS: GLUCOSE 97 mg/dL (70-99); TOTAL PROTEIN 6.9 g/dL (6.4-8.3)
[2017-12-06 20:40] LABS: TOTAL BILIRUBIN 0.6 mg/dL (0.0-1.0)
[2017-12-06 20:42] LABS: ALKALINE PHOSPHATASE 93 IU/L (3-129); GFR ESTIMATE (CALCULATED) 15 mL/min/
[2017-12-06 20:43] LABS: UREA NITROGEN (BUN) 32 mg/dL (9-23)
[2017-12-06 20:44] LABS: AST (GOT) 22 IU/L (2-34)
[2017-12-06 20:45] LABS: ALT (GPT) 13 IU/L (3-49)
[2017-12-06 20:48] LABS: CREATININE 3.6 mg/dL (0.6-1.3)
[2017-12-06 20:52] LABS: QUANTITATIVE HCG < 4.0 MIU/ML
[2017-12-07 02:43] VITALS: BP 170/112
== END 2017-12-07 02:46 | disposition home or self-care (01) ==
LOC: EME 16:54
DX: R11.2 Nausea with vomiting, unspecified (principal); I12.0 Hypertensive chronic kidney disease with stage 5 chronic kidney disease or end stage renal disease; G89.29 Other chronic pain; R10.9 Unspecified abdominal pain; N18.6 End stage renal disease; Z99.2 Dependence on renal dialysis; R19.7 Diarrhea, unspecified; R51 Headache; Z91.14 Patient's other noncompliance with medication regimen; Z79.01 Long term (current) use of anticoagulants; F17.200 Nicotine dependence, unspecified, uncomplicated
CPT/HCPCS: 80053; 81003; 84702; 85027; 99281; 99284; J0780; J1630; J2060; J2405; J3010

== ENCOUNTER 2017-12-08 15:33 | Emergency (ER) | payer OTHER ==
[~2017-12-08] VITALS: Ht 157.5 cm; Wt 41.7 kg
[2017-12-08 17:43] LABS: HEMATOCRIT 29.6 % (36.0-46.0); HEMOGLOBIN 10.2 G/DL (11.9-15.5); MCH 34.2 PG (29.0-34.0); MCHC 34.5 G/DL (30.0-36.0); MCV 99.3 FL (83-99); PLATELET COUNT 142 K/uL (156-360); RBC DIS.WIDTH-CV 15.5 % (11.8-14.6); RBC DIS.WIDTH-SD 56.2 % (39-53); RED BLOOD COUNT 2.98 M/uL (3.80-5.20)
[2017-12-08 17:51] LABS: ALBUMIN 4.3 g/dL (3.2-4.8); CHLORIDE 88 mEq/L (99-109); POTASSIUM 3.7 mEq/L (3.7-5.4); SODIUM 138 mEq/L (136-147)
[2017-12-08 17:54] LABS: GLUCOSE 100 mg/dL (70-99); TOTAL PROTEIN 7.1 g/dL (6.4-8.3)
[2017-12-08 17:55] LABS: TOTAL BILIRUBIN 0.6 mg/dL (0.0-1.0)
[2017-12-08 17:57] LABS: ALKALINE PHOSPHATASE 96 IU/L (3-129); CREATININE 3.2 mg/dL (0.6-1.3); GFR ESTIMATE (CALCULATED) 18 mL/min/
[2017-12-08 17:58] LABS: UREA NITROGEN (BUN) 29 mg/dL (9-23)
[2017-12-08 17:59] LABS: AST (GOT) 20 IU/L (2-34)
[2017-12-08 18:00] LABS: ALT (GPT) 13 IU/L (3-49)
[2017-12-08 18:01] LABS: LIPASE 151 U/L (1.0-51.0)
[2017-12-08 18:07] LABS: QUANTITATIVE HCG < 4.0 MIU/ML
[2017-12-08 20:04] VITALS: BP 181/113
== END 2017-12-08 20:32 | disposition home or self-care (01) ==
LOC: EME 15:33
PROVIDERS: Emergency Medicine
DX: R10.9 Unspecified abdominal pain (principal); I12.0 Hypertensive chronic kidney disease with stage 5 chronic kidney disease or end stage renal disease; N18.6 End stage renal disease; Z99.2 Dependence on renal dialysis; E78.5 Hyperlipidemia, unspecified; K21.9 Gastro-esophageal reflux disease without esophagitis; K31.84 Gastroparesis; R01.1 Cardiac murmur, unspecified; G43.909 Migraine, unspecified, not intractable, without status migrainosus; R56.9 Unspecified convulsions; F41.9 Anxiety disorder, unspecified; F32.9 Major depressive disorder, single episode, unspecified; F17.200 Nicotine dependence, unspecified, uncomplicated; Z79.01 Long term (current) use of anticoagulants; Z96.89 Presence of other specified functional implants; Z90.49 Acquired absence of other specified parts of digestive tract; Z94.0 Kidney transplant status; Z88.1 Allergy status to other antibiotic agents; Z88.8 Allergy status to other drugs, medicaments and biological substances
CPT/HCPCS: 74022; 80053; 81003; 83690; 84702; 85027; 99281; 99285; J1630; J2405; J3010

== ENCOUNTER 2017-12-10 10:34 | Emergency (ER) | payer OTHER ==
[~2017-12-10] VITALS: Ht 157.5 cm; Wt 47.7 kg
[2017-12-10 11:25] LABS: HEMATOCRIT 30.3 % (36.0-46.0); HEMOGLOBIN 10.5 G/DL (11.9-15.5); MCH 34.7 PG (29.0-34.0); MCHC 34.7 G/DL (30.0-36.0); PLATELET COUNT 172 K/uL (156-360); RBC DIS.WIDTH-CV 15.5 % (11.8-14.6); RBC DIS.WIDTH-SD 56.3 % (39-53); RED BLOOD COUNT 3.03 M/uL (3.80-5.20); WHITE BLOOD COUNT 5.9 K/uL (4.1-10.2)
[2017-12-10 11:37] LABS: ALBUMIN 4.4 g/dL (3.2-4.8); CHLORIDE 87 mEq/L (99-109); POTASSIUM 3.5 mEq/L (3.7-5.4); SODIUM 140 mEq/L (136-147)
[2017-12-10 11:39] LABS: GLUCOSE 144 mg/dL (70-99); TOTAL PROTEIN 7.1 g/dL (6.4-8.3)
[2017-12-10 11:41] LABS: TOTAL BILIRUBIN 0.6 mg/dL (0.0-1.0)
[2017-12-10 11:43] LABS: ALKALINE PHOSPHATASE 92 IU/L (3-129); CREATININE 2.8 mg/dL (0.6-1.3); GFR ESTIMATE (CALCULATED) 21 mL/min/
[2017-12-10 11:44] LABS: UREA NITROGEN (BUN) 22 mg/dL (9-23)
[2017-12-10 11:45] LABS: AST (GOT) 21 IU/L (2-34)
[2017-12-10 11:46] LABS: ALT (GPT) 11 IU/L (3-49)
[2017-12-10 11:47] LABS: TROP-I INTERPRETATION NEGATIVE; TROPONIN-I < 0.01 ng/mL (0.0-0.30)
[2017-12-10 11:54] LABS: QUANTITATIVE HCG < 4.0 MIU/ML
[2017-12-10 16:20] VITALS: BP 170/105
== END 2017-12-10 16:37 | disposition home or self-care (01) ==
LOC: EME 10:34
PROVIDERS: Emergency Medicine Emergency Medical Services
DX: R10.84 Generalized abdominal pain (principal); R11.2 Nausea with vomiting, unspecified; M79.1 Myalgia; E86.0 Dehydration; N18.9 Chronic kidney disease, unspecified; Z99.2 Dependence on renal dialysis; Z94.0 Kidney transplant status; K31.84 Gastroparesis; K21.9 Gastro-esophageal reflux disease without esophagitis; E78.5 Hyperlipidemia, unspecified; F41.9 Anxiety disorder, unspecified; F32.9 Major depressive disorder, single episode, unspecified; F17.200 Nicotine dependence, unspecified, uncomplicated; Z90.49 Acquired absence of other specified parts of digestive tract; Z88.1 Allergy status to other antibiotic agents; Z88.8 Allergy status to other drugs, medicaments and biological substances
CPT/HCPCS: 80053; 81003; 84484; 84702; 85027; 99281; 99285; J0780; J2060; J2270; J3010; J7040

== ENCOUNTER 2017-12-13 21:05 | Inpatient (IN) | payer OTHER ==
[~2017-12-13] VITALS: Ht 157.5 cm; Wt 47.9 kg
[2017-12-13 23:20] LABS: HEMATOCRIT 30.5 % (36.0-46.0); HEMOGLOBIN 10.3 G/DL (11.9-15.5); MCHC 33.8 G/DL (30.0-36.0); MCV 100.7 FL (83-99); PLATELET COUNT 190 K/uL (156-360); RBC DIS.WIDTH-CV 15.9 % (11.8-14.6); RBC DIS.WIDTH-SD 58.4 % (39-53); RED BLOOD COUNT 3.03 M/uL (3.80-5.20); WHITE BLOOD COUNT 6.7 K/uL (4.1-10.2)
[2017-12-13 23:33] LABS: ALBUMIN 4.3 g/dL (3.2-4.8)
[2017-12-13 23:34] LABS: CHLORIDE 84 mEq/L (99-109); SODIUM 135 mEq/L (136-147)
[2017-12-13 23:36] LABS: GLUCOSE 101 mg/dL (70-99); TOTAL PROTEIN 7.1 g/dL (6.4-8.3)
[2017-12-13 23:38] LABS: TOTAL BILIRUBIN 0.6 mg/dL (0.0-1.0)
[2017-12-13 23:39] LABS: ALKALINE PHOSPHATASE 96 IU/L (3-129)
[2017-12-13 23:41] LABS: AST (GOT) 19 IU/L (2-34)
[2017-12-13 23:42] LABS: ALT (GPT) 12 IU/L (3-49)
[2017-12-13 23:43] LABS: LIPASE 116 U/L (1.0-51.0)
[2017-12-13 23:44] LABS: CREATININE 3.9 mg/dL (0.6-1.3); GFR ESTIMATE (CALCULATED) 14 mL/min/; POTASSIUM 4.9 mEq/L (3.7-5.4); UREA NITROGEN (BUN) 43 mg/dL (9-23)
[2017-12-14] VITALS (16 sets, daily range): BP systolic 119–276; BP diastolic 78–153
[2017-12-14 05:49] LABS: INTER. NORMALIZED RATIO 1.1
[2017-12-15] VITALS (24 sets, daily range): BP systolic 134–191; BP diastolic 81–117
[2017-12-15 05:42] LABS: BASOPHIL (%) 0.3 % (0-1); EOSINOPHIL COUNT 0.1 K/uL (0-0.3); HEMATOCRIT 27.2 % (36.0-46.0); HEMOGLOBIN 9.1 G/DL (11.9-15.5); IMMATURE GRANULOCYTE (%) 0.3 % (0.0-0.7); LYMPHOCYTE (%) 16.4 % (15-42); LYMPHOCYTE COUNT 1.4 K/uL (1.0-2.8); MCHC 33.5 G/DL (30.0-36.0); MCV 101.5 FL (83-99); MONOCYTE (%) 9.8 % (3-12); MONOCYTE COUNT 0.9 K/uL (0-0.8); NEUTROPHIL (%) 72.2 % (45-76); NEUTROPHIL COUNT 6.3 K/uL (1.8-6.4); PLATELET COUNT 171 K/uL (156-360); RBC DIS.WIDTH-CV 15.8 % (11.8-14.6); RBC DIS.WIDTH-SD 58.8 % (39-53); RED BLOOD COUNT 2.68 M/uL (3.80-5.20); WHITE BLOOD COUNT 8.7 K/uL (4.1-10.2)
[2017-12-15 06:16] LABS: CHLORIDE 88 MEQ/L (99-109); GLUCOSE 91 mg/dL (70-99); PHOSPHORUS 7.7 mg/dL (2.5-4.9); POTASSIUM 5.1 MEQ/L (3.7-5.4); SODIUM 135 MEQ/L (136-147)
[2017-12-15 06:20] LABS: CREATININE 6.1 MG/DL (0.6-1.3); GFR ESTIMATE (CALCULATED) 8 mL/min/; UREA NITROGEN (BUN) 65 mg/dL (9-23)
[2017-12-16 00:01] VITALS: BP 150/89
[2017-12-16 08:00] VITALS: BP 143/87
[2017-12-16] MEDS ORDERED: FENTANYL1 EAC5 TD (15:41)
[2017-12-19 12:02] LABS: RENIN ACTIVITY 3.86 ng/mL/h (0.25-5.82)
== END 2017-12-16 16:28 | disposition home or self-care (01) | DRG 304 ==
LOC: EME 21:05 → EDOF 12-14 04:26 → ENRESERV 12-14 04:27 → 4SOUTH 12-14 07:54 → ENRESERV 12-14 13:03 → 4WEST 12-14 14:04 → ENRESERV 12-15 18:41 → 5SOUTH 12-15 22:56
PROVIDERS: Emergency Medicine; Internal Medicine Critical Care Medicine; Internal Medicine Nephrology; Physician Assistant
PROC: 5A1D70Z Performance of Urinary Filtration, Intermittent, Less than 6 Hours Per Day (ICD-10-PCS; principal; 2017-12-15)
DX: I16.0 Hypertensive urgency (principal); N18.9 Chronic kidney disease, unspecified; N18.3 Chronic kidney disease, stage 3 (moderate); N18.6 End stage renal disease; F17.210 Nicotine dependence, cigarettes, uncomplicated; N25.81 Secondary hyperparathyroidism of renal origin; D63.1 Anemia in chronic kidney disease; I12.0 Hypertensive chronic kidney disease with stage 5 chronic kidney disease or end stage renal disease; K31.84 Gastroparesis; F41.9 Anxiety disorder, unspecified; F32.9 Major depressive disorder, single episode, unspecified; R10.9 Unspecified abdominal pain; E78.5 Hyperlipidemia, unspecified; T86.12 Kidney transplant failure; Y83.0 Surgical operation with transplant of whole organ as the cause of abnormal reaction of the patient, or of later complication, without mention of misadventure at the time of the procedure; R11.2 Nausea with vomiting, unspecified; Z99.2 Dependence on renal dialysis; Z86.718 Personal history of other venous thrombosis and embolism; Z90.49 Acquired absence of other specified parts of digestive tract; Z79.01 Long term (current) use of anticoagulants; Z91.19 Patient's noncompliance with other medical treatment and regimen; Z79.899 Other long term (current) drug therapy; Z68.1 Body mass index [BMI] 19.9 or less, adult; G40.909 Epilepsy, unspecified, not intractable, without status epilepticus
CPT/HCPCS: 80048; 80053; 80069; 80306 90; 81003; 82088 90; 83605; 83690; 84244 90; 85025; 85027; 85610; 87641; 94799; J0360; J0780; J2060; J2405; J3010; J7030; J7050; S0028

== ENCOUNTER 2017-12-19 18:17 | Emergency (ER) | payer OTHER ==
[~2017-12-19] VITALS: Ht 157.5 cm; Wt 44.5 kg
[~2017-12-19 18:17] MED LIST changes: +FENTANYL1 EAC5 TD
[2017-12-19 21:01] LABS: HEMATOCRIT 29.6 % (36.0-46.0); HEMOGLOBIN 10.5 G/DL (11.9-15.5); MCH 34.3 PG (29.0-34.0); MCHC 35.5 G/DL (30.0-36.0); PLATELET COUNT 202 K/uL (156-360); RBC DIS.WIDTH-CV 15.4 % (11.8-14.6); RBC DIS.WIDTH-SD 54.5 % (39-53); RED BLOOD COUNT 3.06 M/uL (3.80-5.20); WHITE BLOOD COUNT 6.7 K/uL (4.1-10.2)
[2017-12-19 21:02] LABS: MCV 97.1 FL (83-99)
[2017-12-19 21:06] LABS: ALBUMIN 4.4 g/dL (3.2-4.8)
[2017-12-19 21:07] LABS: CHLORIDE 85 mEq/L (99-109); POTASSIUM 4.1 mEq/L (3.7-5.4); SODIUM 136 mEq/L (136-147)
[2017-12-19 21:09] LABS: GLUCOSE 107 mg/dL (70-99); TOTAL PROTEIN 7.3 g/dL (6.4-8.3)
[2017-12-19 21:12] LABS: ALKALINE PHOSPHATASE 86 IU/L (3-129); TOTAL BILIRUBIN 0.9 mg/dL (0.0-1.0)
[2017-12-19 21:13] LABS: GFR ESTIMATE (CALCULATED) 7 mL/min/
[2017-12-19 21:14] LABS: AST (GOT) 26 IU/L (2-34); UREA NITROGEN (BUN) 66 mg/dL (9-23)
[2017-12-19 21:15] LABS: ALT (GPT) 13 IU/L (3-49)
[2017-12-19 21:16] LABS: CREATININE 7.3 mg/dL (0.6-1.3); LIPASE 8 U/L (1.0-51.0)
[2017-12-19 21:18] LABS: TROP-I INTERPRETATION NEGATIVE; TROPONIN-I < 0.01 ng/mL (0.0-0.30)
[2017-12-19 23:27] VITALS: BP 221/137
== END 2017-12-19 23:22 | disposition home or self-care (01) ==
LOC: EME 18:17
PROVIDERS: Emergency Medicine
DX: K31.84 Gastroparesis (principal); I12.0 Hypertensive chronic kidney disease with stage 5 chronic kidney disease or end stage renal disease; N18.6 End stage renal disease; Z99.2 Dependence on renal dialysis; G89.29 Other chronic pain; R10.9 Unspecified abdominal pain; E78.5 Hyperlipidemia, unspecified; K21.9 Gastro-esophageal reflux disease without esophagitis; G43.909 Migraine, unspecified, not intractable, without status migrainosus; R56.9 Unspecified convulsions; R01.1 Cardiac murmur, unspecified; F41.9 Anxiety disorder, unspecified; F32.9 Major depressive disorder, single episode, unspecified; F17.200 Nicotine dependence, unspecified, uncomplicated; Z79.01 Long term (current) use of anticoagulants; Z90.49 Acquired absence of other specified parts of digestive tract; Z94.0 Kidney transplant status; Z88.1 Allergy status to other antibiotic agents; Z88.8 Allergy status to other drugs, medicaments and biological substances
CPT/HCPCS: 74022; 80053; 83690; 83880; 84484; 85027; 93005; 99281; 99285; J0360; J2060; J2405; J3010; J7030

== ENCOUNTER 2017-12-20 10:17 | Inpatient (IN) | payer OTHER ==
[~2017-12-20] VITALS: Ht 157.5 cm; Wt 43.6 kg
[2017-12-20] VITALS: BP 132/84; BP 226/144
[2017-12-20 00:30] VITALS: BP 135/81; BP 151/105
[2017-12-20 11:31] LABS: BASOPHIL (%) 0.5 % (0-1); BASOPHIL COUNT 0.1 K/uL (0-0.1); EOSINOPHIL (%) 0.3 % (0-5); HEMATOCRIT 28.3 % (36.0-46.0); HEMOGLOBIN 9.9 G/DL (11.9-15.5); IMMATURE GRANULOCYTE (%) 0.4 % (0.0-0.7); LYMPHOCYTE (%) 12.4 % (15-42); LYMPHOCYTE COUNT 1.3 K/uL (1.0-2.8); MCH 34.5 PG (29.0-34.0); MCV 98.6 FL (83-99); MONOCYTE (%) 9.9 % (3-12); NEUTROPHIL (%) 76.5 % (45-76); PLATELET COUNT 201 K/uL (156-360); RBC DIS.WIDTH-CV 15.5 % (11.8-14.6); RBC DIS.WIDTH-SD 56.6 % (39-53); RED BLOOD COUNT 2.87 M/uL (3.80-5.20); WHITE BLOOD COUNT 10.5 K/uL (4.1-10.2)
[2017-12-20 11:40] LABS: ALBUMIN 4.3 g/dL (3.2-4.8); CHLORIDE 84 mEq/L (99-109); POTASSIUM 4.3 mEq/L (3.7-5.4); SODIUM 136 mEq/L (136-147)
[2017-12-20 11:42] LABS: GLUCOSE 107 mg/dL (70-99)
[2017-12-20 11:44] LABS: TOTAL BILIRUBIN 0.8 mg/dL (0.0-1.0)
[2017-12-20 11:46] LABS: ALKALINE PHOSPHATASE 85 IU/L (3-129); CREATININE 8.3 mg/dL (0.6-1.3); GFR ESTIMATE (CALCULATED) 6 mL/min/
[2017-12-20 11:47] LABS: UREA NITROGEN (BUN) 72 mg/dL (9-23)
[2017-12-20 11:48] LABS: AST (GOT) 23 IU/L (2-34)
[2017-12-20 11:49] LABS: ALT (GPT) 18 IU/L (3-49); LIPASE 9 U/L (1.0-51.0)
[2017-12-20 11:52] LABS: TROP-I INTERPRETATION NEGATIVE; TROPONIN-I < 0.01 ng/mL (0.0-0.30)
[2017-12-20 20:34] LABS: INTER. NORMALIZED RATIO 1.2
[2017-12-20 20:36] LABS: PTT 29.6 SEC (25-37)
[2017-12-20 23:00] VITALS: BP 226/144
[2017-12-20 23:03] VITALS: BP 231/147
[2017-12-20 23:30] VITALS: BP 151/105
[2017-12-21] VITALS (22 sets, daily range): BP systolic 101–162; BP diastolic 57–108
[2017-12-21 05:39] LABS: HEMATOCRIT 27.7 % (36.0-46.0); MCH 33.3 PG (29.0-34.0); MCHC 32.5 G/DL (30.0-36.0); PLATELET COUNT 167 K/uL (156-360); RBC DIS.WIDTH-CV 15.9 % (11.8-14.6); RBC DIS.WIDTH-SD 59.6 % (39-53); WHITE BLOOD COUNT 5.7 K/uL (4.1-10.2)
[2017-12-21 05:40] LABS: MCV 102.6 FL (83-99)
[2017-12-21 06:06] LABS: GLUCOSE 82 mg/dL (70-99); POTASSIUM 4.1 MEQ/L (3.7-5.4); SODIUM 138 MEQ/L (136-147)
[2017-12-21 06:10] LABS: CHLORIDE 97 MEQ/L (99-109); CREATININE 4.2 MG/DL (0.6-1.3); GFR ESTIMATE (CALCULATED) 13 mL/min/; UREA NITROGEN (BUN) 28 mg/dL (9-23)
[2017-12-21] MEDS ORDERED: FENTANYL1 EAC5 TD (11:21)
[2017-12-22 06:01] LABS: CHLORIDE 95 MEQ/L (99-109); GFR ESTIMATE (CALCULATED) 8 mL/min/; GLUCOSE 92 mg/dL (70-99); POTASSIUM 4.1 MEQ/L (3.7-5.4); SODIUM 133 MEQ/L (136-147)
[2017-12-22 06:18] LABS: CREATININE 6.4 MG/DL (0.6-1.3); UREA NITROGEN (BUN) 58 mg/dL (9-23)
[2017-12-22 07:29] VITALS: BP 116/75
[2017-12-22 11:33] VITALS: BP 123/66
== END 2017-12-22 15:27 | disposition home or self-care (01) | DRG 391 ==
LOC: EME 10:17 → EDOF 20:33 → 4WEST 20:33 → ENRESERV 21:08 → ENRESERVTM 21:21 → ENRESERV 21:21 → ENRESERVDT 21:21 → 4WEST 22:41 → ENRESERV 12-21 14:56 → 4EAST 12-21 16:34
PROVIDERS: Emergency Medicine; Family Medicine; Internal Medicine; Surgery
PROC: 5A1D70Z Performance of Urinary Filtration, Intermittent, Less than 6 Hours Per Day (ICD-10-PCS; principal; 2017-12-20)
DX: K31.84 Gastroparesis (principal); I12.0 Hypertensive chronic kidney disease with stage 5 chronic kidney disease or end stage renal disease; N18.6 End stage renal disease; I16.1 Hypertensive emergency; D63.1 Anemia in chronic kidney disease; T86.12 Kidney transplant failure; Y83.0 Surgical operation with transplant of whole organ as the cause of abnormal reaction of the patient, or of later complication, without mention of misadventure at the time of the procedure; E83.52 Hypercalcemia; N25.81 Secondary hyperparathyroidism of renal origin; D50.9 Iron deficiency anemia, unspecified; I48.91 Unspecified atrial fibrillation; K21.9 Gastro-esophageal reflux disease without esophagitis; E78.5 Hyperlipidemia, unspecified; G40.909 Epilepsy, unspecified, not intractable, without status epilepticus; I87.8 Other specified disorders of veins; G89.29 Other chronic pain; F41.9 Anxiety disorder, unspecified; F32.9 Major depressive disorder, single episode, unspecified; F17.200 Nicotine dependence, unspecified, uncomplicated; Z86.718 Personal history of other venous thrombosis and embolism; Z79.01 Long term (current) use of anticoagulants; Z96.89 Presence of other specified functional implants; Z99.2 Dependence on renal dialysis; Z91.041 Radiographic dye allergy status; Z60.2 Problems related to living alone; Z88.1 Allergy status to other antibiotic agents
CPT/HCPCS: 71046; 74019; 80048; 80053; 81003; 81025; 83690; 84484; 85025; 85027; 85610; 85730; 87641; 99281; 99284; J0360; J1170; J2060; J2405; J2550; J3010; J7030; J7050

== ENCOUNTER 2017-12-24 09:48 | Inpatient (IN) | payer OTHER ==
[~2017-12-24] VITALS: Ht 157.5 cm; Wt 45.5 kg
[2017-12-24 11:25] LABS: BASOPHIL (%) 0.6 % (0-1); BASOPHIL COUNT 0.1 K/uL (0-0.1); EOSINOPHIL (%) 1.2 % (0-5); EOSINOPHIL COUNT 0.1 K/uL (0-0.3); HEMOGLOBIN 9.3 G/DL (11.9-15.5); IMMATURE GRANULOCYTE (%) 0.3 % (0.0-0.7); LYMPHOCYTE (%) 17.9 % (15-42); LYMPHOCYTE COUNT 1.6 K/uL (1.0-2.8); MCH 33.9 PG (29.0-34.0); MCHC 34.4 G/DL (30.0-36.0); MCV 98.5 FL (83-99); MONOCYTE COUNT 0.9 K/uL (0-0.8); NEUTROPHIL COUNT 6.1 K/uL (1.8-6.4); PLATELET COUNT 187 K/uL (156-360); RBC DIS.WIDTH-CV 14.9 % (11.8-14.6); RBC DIS.WIDTH-SD 53.9 % (39-53); RED BLOOD COUNT 2.74 M/uL (3.80-5.20); WHITE BLOOD COUNT 8.7 K/uL (4.1-10.2)
[2017-12-24 11:30] LABS: CHLORIDE 95 mEq/L (99-109); POTASSIUM 4.3 mEq/L (3.7-5.4); SODIUM 136 mEq/L (136-147)
[2017-12-24 11:32] LABS: GLUCOSE 77 mg/dL (70-99)
[2017-12-24 11:35] LABS: CREATININE 6.8 mg/dL (0.6-1.3); GFR ESTIMATE (CALCULATED) 7 mL/min/
[2017-12-24 11:36] LABS: UREA NITROGEN (BUN) 51 mg/dL (9-23)
[2017-12-24 16:15] VITALS: BP 204/88
[2017-12-24 21:21] VITALS: BP 127/85
[2017-12-24 23:38] VITALS: BP 147/92
[2017-12-25 04:45] VITALS: BP 141/93
[2017-12-25 05:29] LABS: HEMATOCRIT 27.7 % (36.0-46.0); HEMOGLOBIN 9.1 G/DL (11.9-15.5); MCH 33.2 PG (29.0-34.0); MCHC 32.9 G/DL (30.0-36.0); MCV 101.1 FL (83-99); PLATELET COUNT 209 K/uL (156-360); RBC DIS.WIDTH-CV 15.1 % (11.8-14.6); RBC DIS.WIDTH-SD 56.3 % (39-53); RED BLOOD COUNT 2.74 M/uL (3.80-5.20); WHITE BLOOD COUNT 5.8 K/uL (4.1-10.2)
[2017-12-25 06:32] LABS: CHLORIDE 98 MEQ/L (99-109); GFR ESTIMATE (CALCULATED) 16 mL/min/; POTASSIUM 4.2 MEQ/L (3.7-5.4); SODIUM 139 MEQ/L (136-147)
[2017-12-25 06:33] LABS: CREATININE 3.5 MG/DL (0.6-1.3); GLUCOSE 116 mg/dL (70-99); UREA NITROGEN (BUN) 18 mg/dL (9-23)
[2017-12-25 07:20] VITALS: BP 202/110
[2017-12-25 11:15] VITALS: BP 158/84
[2017-12-25 13:10] LABS: INTER. NORMALIZED RATIO 1.1
[2017-12-25 15:53] VITALS: BP 148/72
[2017-12-25 19:39] VITALS: BP 140/90
[2017-12-25 23:21] VITALS: BP 138/86
[2017-12-26 00:20] VITALS: BP 138/80
[2017-12-26 03:58] VITALS: BP 148/82
[2017-12-26 06:47] LABS: INTER. NORMALIZED RATIO 1.2
[2017-12-26 08:32] VITALS: BP 146/88
[2017-12-26] MEDS ORDERED: OXYCODONE HCL5 MG PO (13:05)
== END 2017-12-26 15:02 | disposition home or self-care (01) | DRG 304 ==
LOC: EME 09:48 → 5EAST 14:42 → EDOF 14:42 → ENRESERV 14:53 → 5EAST 16:01
PROVIDERS: Emergency Medicine; Internal Medicine; Student in an Organized Health Care Education/Training Program
PROC: 5A1D70Z Performance of Urinary Filtration, Intermittent, Less than 6 Hours Per Day (ICD-10-PCS; principal; 2017-12-24)
DX: I16.1 Hypertensive emergency (principal); N18.6 End stage renal disease; I12.0 Hypertensive chronic kidney disease with stage 5 chronic kidney disease or end stage renal disease; Z99.2 Dependence on renal dialysis; Z94.0 Kidney transplant status; E87.5 Hyperkalemia; G40.909 Epilepsy, unspecified, not intractable, without status epilepticus; E11.22 Type 2 diabetes mellitus with diabetic chronic kidney disease; E11.43 Type 2 diabetes mellitus with diabetic autonomic (poly)neuropathy; K31.84 Gastroparesis; F41.9 Anxiety disorder, unspecified; F32.9 Major depressive disorder, single episode, unspecified; Z86.718 Personal history of other venous thrombosis and embolism; D63.1 Anemia in chronic kidney disease; F17.200 Nicotine dependence, unspecified, uncomplicated; G89.29 Other chronic pain; I87.8 Other specified disorders of veins; Z79.01 Long term (current) use of anticoagulants
CPT/HCPCS: 80048; 85025; 85027; 85610; 93005; 99281; 99285; C9113; J0780; J2405; J3010; J7050

== ENCOUNTER 2017-12-28 18:28 | Emergency (ER) | payer OTHER ==
[~2017-12-28] VITALS: Ht 157.5 cm; Wt 47.3 kg
[2017-12-28 19:32] LABS: HEMATOCRIT 25.9 % (36.0-46.0); HEMOGLOBIN 8.8 G/DL (11.9-15.5); MCH 34.4 PG (29.0-34.0); MCV 101.2 FL (83-99); PLATELET COUNT 166 K/uL (156-360); RBC DIS.WIDTH-CV 14.7 % (11.8-14.6); RBC DIS.WIDTH-SD 55.4 % (39-53); RED BLOOD COUNT 2.56 M/uL (3.80-5.20); WHITE BLOOD COUNT 6.4 K/uL (4.1-10.2)
[2017-12-28 19:39] LABS: ALBUMIN 4.1 g/dL (3.2-4.8)
[2017-12-28 19:40] LABS: CHLORIDE 88 mEq/L (99-109); SODIUM 136 mEq/L (136-147)
[2017-12-28 19:42] LABS: GLUCOSE 92 mg/dL (70-99); TOTAL PROTEIN 6.5 g/dL (6.4-8.3)
[2017-12-28 19:44] LABS: POTASSIUM 5.5 mEq/L (3.7-5.4); TOTAL BILIRUBIN 0.5 mg/dL (0.0-1.0)
[2017-12-28 19:45] LABS: ALKALINE PHOSPHATASE 74 IU/L (3-129)
[2017-12-28 19:47] LABS: AST (GOT) 15 IU/L (2-34)
[2017-12-28 19:49] LABS: ALT (GPT) 10 IU/L (3-49)
[2017-12-28 19:58] LABS: CREATININE 4.9 mg/dL (0.6-1.3); GFR ESTIMATE (CALCULATED) 11 mL/min/; UREA NITROGEN (BUN) 31 mg/dL (9-23)
[2017-12-28 20:34] VITALS: BP 181/117
== END 2017-12-28 20:36 | disposition left against medical advice (07) ==
LOC: EME 18:28 → RME 18:28
PROVIDERS: Physician Assistant Medical
DX: R10.9 Unspecified abdominal pain (principal); R11.2 Nausea with vomiting, unspecified; R06.02 Shortness of breath; I12.0 Hypertensive chronic kidney disease with stage 5 chronic kidney disease or end stage renal disease; N18.6 End stage renal disease; Z99.2 Dependence on renal dialysis; Z94.0 Kidney transplant status; F41.9 Anxiety disorder, unspecified; Z79.01 Long term (current) use of anticoagulants; F17.200 Nicotine dependence, unspecified, uncomplicated; Z53.20 Procedure and treatment not carried out because of patient's decision for unspecified reasons
CPT/HCPCS: 80053; 81003; 85027; 99281; 99284; J0780; J3010

== ENCOUNTER 2017-12-30 15:15 | Emergency (ER) | payer OTHER ==
[~2017-12-30] VITALS: Ht 157.5 cm; Wt 50.0 kg
[2017-12-30 16:40] LABS: HEMATOCRIT 24.2 % (36.0-46.0); HEMOGLOBIN 8.2 G/DL (11.9-15.5); MCH 34.7 PG (29.0-34.0); MCHC 33.9 G/DL (30.0-36.0); MCV 102.5 FL (83-99); PLATELET COUNT 178 K/uL (156-360); RBC DIS.WIDTH-CV 14.9 % (11.8-14.6); RBC DIS.WIDTH-SD 55.8 % (39-53); RED BLOOD COUNT 2.36 M/uL (3.80-5.20); WHITE BLOOD COUNT 6.8 K/uL (4.1-10.2)
[2017-12-30 16:51] LABS: ALBUMIN 3.8 g/dL (3.2-4.8); CHLORIDE 87 mEq/L (99-109); POTASSIUM 5.2 mEq/L (3.7-5.4); SODIUM 134 mEq/L (136-147)
[2017-12-30 16:53] LABS: GLUCOSE 72 mg/dL (70-99)
[2017-12-30 16:55] LABS: TOTAL BILIRUBIN 0.5 mg/dL (0.0-1.0)
[2017-12-30 16:57] LABS: ALKALINE PHOSPHATASE 66 IU/L (3-129); CREATININE 4.5 mg/dL (0.6-1.3); GFR ESTIMATE (CALCULATED) 12 mL/min/
[2017-12-30 16:58] LABS: UREA NITROGEN (BUN) 25 mg/dL (9-23)
[2017-12-30 16:59] LABS: AST (GOT) 18 IU/L (2-34)
[2017-12-30 17:00] LABS: ALT (GPT) 13 IU/L (3-49); LIPASE 13 U/L (1.0-51.0)
[2017-12-30 17:09] LABS: QUANTITATIVE HCG < 4.0 MIU/ML
[2017-12-30 19:00] VITALS: BP 188/116
== END 2017-12-30 19:06 | disposition home or self-care (01) ==
LOC: EME 15:15
PROVIDERS: Emergency Medicine
DX: I12.9 Hypertensive chronic kidney disease with stage 1 through stage 4 chronic kidney disease, or unspecified chronic kidney disease (principal); N18.9 Chronic kidney disease, unspecified; R11.2 Nausea with vomiting, unspecified; K31.84 Gastroparesis; Z99.2 Dependence on renal dialysis; Z94.0 Kidney transplant status; K21.9 Gastro-esophageal reflux disease without esophagitis; E78.5 Hyperlipidemia, unspecified; G89.29 Other chronic pain; F41.9 Anxiety disorder, unspecified; F32.9 Major depressive disorder, single episode, unspecified; F17.200 Nicotine dependence, unspecified, uncomplicated; Z90.49 Acquired absence of other specified parts of digestive tract; Z79.01 Long term (current) use of anticoagulants; Z88.1 Allergy status to other antibiotic agents; Z88.8 Allergy status to other drugs, medicaments and biological substances
CPT/HCPCS: 80053; 81003; 83690; 84702; 85027; 93005; 99281; 99285; J2405; J3010; J7030

== ENCOUNTER 2017-12-31 15:16 | Emergency (ER) | payer OTHER ==
[~2017-12-31] VITALS: Ht 157.5 cm; Wt 44.5 kg
[2017-12-31 16:32] LABS: HEMATOCRIT 27.2 % (36.0-46.0); MCH 34.1 PG (29.0-34.0); MCHC 33.1 G/DL (30.0-36.0); PLATELET COUNT 200 K/uL (156-360); RBC DIS.WIDTH-CV 14.9 % (11.8-14.6); RBC DIS.WIDTH-SD 55.8 % (39-53); RED BLOOD COUNT 2.64 M/uL (3.80-5.20); WHITE BLOOD COUNT 6.2 K/uL (4.1-10.2)
[2017-12-31 16:39] LABS: ALBUMIN 4.1 g/dL (3.2-4.8)
[2017-12-31 16:40] LABS: CHLORIDE 87 mEq/L (99-109); POTASSIUM 5.1 mEq/L (3.7-5.4); SODIUM 139 mEq/L (136-147)
[2017-12-31 16:42] LABS: GLUCOSE 89 mg/dL (70-99); TOTAL PROTEIN 6.5 g/dL (6.4-8.3)
[2017-12-31 16:44] LABS: TOTAL BILIRUBIN 0.4 mg/dL (0.0-1.0)
[2017-12-31 16:45] LABS: ALKALINE PHOSPHATASE 73 IU/L (3-129)
[2017-12-31 16:46] LABS: CREATININE 2.5 mg/dL (0.6-1.3); GFR ESTIMATE (CALCULATED) 23 mL/min/
[2017-12-31 16:47] LABS: AST (GOT) 19 IU/L (2-34); UREA NITROGEN (BUN) 13 mg/dL (9-23)
[2017-12-31 16:49] LABS: ALT (GPT) 14 IU/L (3-49); LIPASE 61 U/L (1.0-51.0)
[2017-12-31 17:05] LABS: CARBON DIOXIDE (BICARBONATE) > 40.0 mEq/L (20-31)
[2017-12-31 19:41] VITALS: BP 191/124
== END 2017-12-31 19:59 | disposition home or self-care (01) ==
LOC: EME 15:16
PROVIDERS: Emergency Medicine
DX: R10.9 Unspecified abdominal pain (principal); R11.2 Nausea with vomiting, unspecified; N18.9 Chronic kidney disease, unspecified; K21.9 Gastro-esophageal reflux disease without esophagitis; E78.5 Hyperlipidemia, unspecified; T86.12 Kidney transplant failure; F41.9 Anxiety disorder, unspecified; F32.9 Major depressive disorder, single episode, unspecified; F17.200 Nicotine dependence, unspecified, uncomplicated; Z79.891 Long term (current) use of opiate analgesic; Z79.01 Long term (current) use of anticoagulants; Z99.2 Dependence on renal dialysis; Z96.89 Presence of other specified functional implants; Z86.79 Personal history of other diseases of the circulatory system; Z87.448 Personal history of other diseases of urinary system; Z98.890 Other specified postprocedural states; Z90.49 Acquired absence of other specified parts of digestive tract; Z91.048 Other nonmedicinal substance allergy status; Z88.1 Allergy status to other antibiotic agents; Z88.8 Allergy status to other drugs, medicaments and biological substances
CPT/HCPCS: 80053; 83690; 85027; 99281; 99285; J1630; J2060; J7030

== ENCOUNTER 2018-01-02 03:15 | Inpatient (IN) | payer OTHER ==
[~2018-01-02] VITALS: Ht 157.5 cm; Wt 52.0 kg
[2018-01-02] VITALS (20 sets, daily range): BP systolic 132–179; BP diastolic 79–121
[2018-01-02 04:49] LABS: HEMATOCRIT 23.4 % (36.0-46.0); HEMOGLOBIN 7.8 G/DL (11.9-15.5); MCH 34.5 PG (29.0-34.0); MCHC 33.3 G/DL (30.0-36.0); MCV 103.5 FL (83-99); PLATELET COUNT 170 K/uL (156-360); RBC DIS.WIDTH-CV 15.1 % (11.8-14.6); RBC DIS.WIDTH-SD 55.7 % (39-53); RED BLOOD COUNT 2.26 M/uL (3.80-5.20)
[2018-01-02 05:02] LABS: ALBUMIN 3.9 g/dL (3.2-4.8)
[2018-01-02 05:03] LABS: CHLORIDE 88 mEq/L (99-109); POTASSIUM 5.2 mEq/L (3.7-5.4); SODIUM 137 mEq/L (136-147)
[2018-01-02 05:05] LABS: GLUCOSE 70 mg/dL (70-99)
[2018-01-02 05:08] LABS: ALKALINE PHOSPHATASE 69 IU/L (3-129)
[2018-01-02 05:10] LABS: AST (GOT) 18 IU/L (2-34)
[2018-01-02 05:12] LABS: ALT (GPT) 13 IU/L (3-49); LIPASE 23 U/L (1.0-51.0)
[2018-01-02 05:21] LABS: CREATININE 5.4 mg/dL (0.6-1.3); GFR ESTIMATE (CALCULATED) 10 mL/min/; TOTAL BILIRUBIN 0.5 mg/dL (0.0-1.0); UREA NITROGEN (BUN) 26 mg/dL (9-23)
[2018-01-02 05:26] LABS: TROP-I INTERPRETATION NEGATIVE; TROPONIN-I < 0.01 ng/mL (0.0-0.30)
[2018-01-02 13:10] LABS: PTT 39.2 SEC (25-37)
[2018-01-02 13:25] LABS: HIGH-SENS C-REACTIVE PROTEIN 0.11 MG/DL (0.02-0.20)
[2018-01-03] VITALS (18 sets, daily range): BP systolic 105–182; BP diastolic 65–124
[2018-01-03 05:14] LABS: BASOPHIL (%) 0.7 % (0-1); BASOPHIL COUNT 0.1 K/uL (0-0.1); EOSINOPHIL (%) 2.8 % (0-5); EOSINOPHIL COUNT 0.2 K/uL (0-0.3); HEMATOCRIT 24.3 % (36.0-46.0); HEMOGLOBIN 8.1 G/DL (11.9-15.5); IMMATURE GRANULOCYTE (%) 0.3 % (0.0-0.7); LYMPHOCYTE (%) 21.4 % (15-42); LYMPHOCYTE COUNT 1.6 K/uL (1.0-2.8); MCH 33.6 PG (29.0-34.0); MCHC 33.3 G/DL (30.0-36.0); MCV 100.8 FL (83-99); MONOCYTE (%) 7.6 % (3-12); MONOCYTE COUNT 0.6 K/uL (0-0.8); NEUTROPHIL (%) 67.2 % (45-76); PLATELET COUNT 153 K/uL (156-360); RBC DIS.WIDTH-CV 15.2 % (11.8-14.6); RBC DIS.WIDTH-SD 54.9 % (39-53); RED BLOOD COUNT 2.41 M/uL (3.80-5.20); WHITE BLOOD COUNT 7.4 K/uL (4.1-10.2)
[2018-01-03 05:39] LABS: ALKALINE PHOSPHATASE 92 IU/L (3-129); ALT (GPT) 23 IU/L (3-49); AST (GOT) 34 IU/L (2-34); CHLORIDE 86 MEQ/L (99-109); GFR ESTIMATE (CALCULATED) 7 mL/min/; GLUCOSE 93 mg/dL (70-99); POTASSIUM 5.6 MEQ/L (3.7-5.4); SODIUM 130 MEQ/L (136-147); TOTAL BILIRUBIN 0.6 MG/DL (0.0-1.0); TOTAL PROTEIN 6.1 G/DL (6.4-8.3); UREA NITROGEN (BUN) 34 mg/dL (9-23)
[2018-01-04 00:30] VITALS: BP 149/94
[2018-01-04 04:00] VITALS: BP 157/100
[2018-01-04] MEDS ORDERED: LABETALOL HCL200 MG PO (10:50)
[2018-01-04] MEDS ORDERED: HYDRALAZINE HCL25 MG PO (10:50)
[2018-01-04] MEDS ORDERED: OXYCODONE HCL5 MG PO (10:50)
[2018-01-04] MEDS ORDERED: XANAX0.5 MG PO (11:00)
[2018-01-04 12:57] VITALS: BP 121/77
== END 2018-01-04 14:37 | disposition home or self-care (01) | DRG 304 ==
LOC: EME → EDBD 03:15 → EME 03:15 → 4WEST 09:26 → 4EAST 09:26 → EDOF 09:26 → CANRESERV 09:28 → ENRESERV 09:28 → CANRESERV 11:59 → ENRESERV 11:59 → CANRESERV 12:23 → ENRESERV 12:53 → 4WEST 14:20 → ENRESERV 01-03 07:53 → 4EAST 01-03 12:25 → ENPENDDIS 01-04 → 4EAST 01-04 14:37
PROVIDERS: Emergency Medicine; Internal Medicine
PROC: 5A1D70Z Performance of Urinary Filtration, Intermittent, Less than 6 Hours Per Day (ICD-10-PCS; principal; 2018-01-03)
DX: I16.1 Hypertensive emergency (principal); I12.0 Hypertensive chronic kidney disease with stage 5 chronic kidney disease or end stage renal disease; T86.12 Kidney transplant failure; I82.629 Acute embolism and thrombosis of deep veins of unspecified upper extremity; N18.6 End stage renal disease; K31.84 Gastroparesis; N25.81 Secondary hyperparathyroidism of renal origin; Z99.2 Dependence on renal dialysis; D63.1 Anemia in chronic kidney disease; G40.909 Epilepsy, unspecified, not intractable, without status epilepticus; F32.9 Major depressive disorder, single episode, unspecified; F41.9 Anxiety disorder, unspecified; I48.91 Unspecified atrial fibrillation; Z96.89 Presence of other specified functional implants; Y83.0 Surgical operation with transplant of whole organ as the cause of abnormal reaction of the patient, or of later complication, without mention of misadventure at the time of the procedure; F17.200 Nicotine dependence, unspecified, uncomplicated; Z91.19 Patient's noncompliance with other medical treatment and regimen; E78.5 Hyperlipidemia, unspecified; G89.29 Other chronic pain
CPT/HCPCS: 80048; 80053; 81003; 83605; 83690; 84145 90; 84484; 84702; 85025; 85027; 85610; 85730; 86141; 87641; 93005; 99281; 99285; J0780; J1630; J2060; J2405; J3010; J7030; J7050; Q0164

== ENCOUNTER 2018-01-09 12:16 | Inpatient (IN) | payer OTHER ==
[~2018-01-09] VITALS: Ht 157.5 cm; Wt 40.2 kg
[2018-01-09 13:15] LABS: HEMATOCRIT 26.6 % (36.0-46.0); HEMOGLOBIN 8.9 G/DL (11.9-15.5); MCH 34.9 PG (29.0-34.0); MCHC 33.5 G/DL (30.0-36.0); MCV 104.3 FL (83-99); PLATELET COUNT 283 K/uL (156-360); RBC DIS.WIDTH-CV 16.6 % (11.8-14.6); RBC DIS.WIDTH-SD 62.4 % (39-53); RED BLOOD COUNT 2.55 M/uL (3.80-5.20); WHITE BLOOD COUNT 16.5 K/uL (4.1-10.2)
[2018-01-09 13:24] LABS: ALBUMIN 4.5 g/dL (3.2-4.8)
[2018-01-09 13:25] LABS: CHLORIDE 89 mEq/L (99-109)
[2018-01-09 13:27] LABS: GLUCOSE 113 mg/dL (70-99); TOTAL PROTEIN 7.5 g/dL (6.4-8.3)
[2018-01-09 13:29] LABS: TOTAL BILIRUBIN 1.3 mg/dL (0.0-1.0)
[2018-01-09 13:30] LABS: ALKALINE PHOSPHATASE 90 IU/L (3-129)
[2018-01-09 13:31] LABS: CREATININE 6.8 mg/dL (0.6-1.3); GFR ESTIMATE (CALCULATED) 7 mL/min/
[2018-01-09 13:32] LABS: AST (GOT) 24 IU/L (2-34); DIRECT BILIRUBIN 0.4 mg/dL (0.0-0.3)
[2018-01-09 13:34] LABS: ALT (GPT) 13 IU/L (3-49); LIPASE 3 U/L (1.0-51.0)
[2018-01-09 13:40] LABS: TROP-I INTERPRETATION NEGATIVE; TROPONIN-I < 0.01 ng/mL (0.0-0.30)
[2018-01-09 13:43] LABS: POTASSIUM 6.8 mEq/L (3.7-5.4); SODIUM 137 mEq/L (136-147); UREA NITROGEN (BUN) 65 mg/dL (9-23)
[2018-01-09 20:00] VITALS: BP 174/121; BP 199/137
[2018-01-09 22:00] VITALS: BP 198/140
[2018-01-09 22:55] LABS: INTER. NORMALIZED RATIO 1.2
[2018-01-09 23:00] VITALS: BP 150/99
[2018-01-09 23:53] VITALS: BP 126/88
[2018-01-10] VITALS (11 sets, daily range): BP systolic 91–113; BP diastolic 51–77
[2018-01-10 07:17] LABS: INTER. NORMALIZED RATIO 1.2
[2018-01-10 14:20] LABS: BASOPHIL (%) 0.7 % (0-1); BASOPHIL COUNT 0.1 K/uL (0-0.1); EOSINOPHIL (%) 3.4 % (0-5); EOSINOPHIL COUNT 0.2 K/uL (0-0.3); HEMATOCRIT 24.3 % (36.0-46.0); HEMOGLOBIN 7.9 G/DL (11.9-15.5); IMMATURE GRANULOCYTE (%) 0.4 % (0.0-0.7); LYMPHOCYTE (%) 26.8 % (15-42); LYMPHOCYTE COUNT 1.9 K/uL (1.0-2.8); MCH 34.2 PG (29.0-34.0); MCHC 32.5 G/DL (30.0-36.0); MCV 105.2 FL (83-99); MONOCYTE (%) 10.5 % (3-12); MONOCYTE COUNT 0.7 K/uL (0-0.8); NEUTROPHIL (%) 58.2 % (45-76); NEUTROPHIL COUNT 4.1 K/uL (1.8-6.4); RBC DIS.WIDTH-CV 16.8 % (11.8-14.6); RBC DIS.WIDTH-SD 64.7 % (39-53); RED BLOOD COUNT 2.31 M/uL (3.80-5.20)
[2018-01-10 14:25] LABS: PLAT.SUFFICIENCY ADEQUATE; PLATELET COUNT 196 K/uL (156-360)
[2018-01-10 14:42] LABS: CHLORIDE 89 MEQ/L (99-109); SODIUM 135 MEQ/L (136-147)
[2018-01-10 14:48] LABS: ALBUMIN 4.2 G/DL (3.2-4.8); GLUCOSE 131 mg/dL (70-99); UREA NITROGEN (BUN) 40 mg/dL (9-23)
[2018-01-10 14:54] LABS: CREATININE 4.7 MG/DL (0.6-1.3); GFR ESTIMATE (CALCULATED) 11 mL/min/; PHOSPHORUS 4.4 mg/dL (2.5-4.9); POTASSIUM 4.2 MEQ/L (3.7-5.4)
[2018-01-11] VITALS: BP 119/74
[2018-01-11 04:01] VITALS: BP 116/78
[2018-01-11 08:00] VITALS: BP 147/95
[2018-01-11 10:30] VITALS: BP 147/95
== END 2018-01-11 10:26 | disposition home or self-care (01) | DRG 391 ==
LOC: EME 12:16 → 4WEST 17:26 → EDOF 17:26 → ENRESERV 17:27 → 4WEST 19:40
PROVIDERS: Emergency Medicine; Internal Medicine; Internal Medicine Critical Care Medicine
PROC: 5A1D70Z Performance of Urinary Filtration, Intermittent, Less than 6 Hours Per Day (ICD-10-PCS; principal; 2018-01-09)
DX: K31.84 Gastroparesis (principal); N18.6 End stage renal disease; Z68.1 Body mass index [BMI] 19.9 or less, adult; T86.12 Kidney transplant failure; I13.11 Hypertensive heart and chronic kidney disease without heart failure, with stage 5 chronic kidney disease, or end stage renal disease; Z94.0 Kidney transplant status; N17.9 Acute kidney failure, unspecified; N25.81 Secondary hyperparathyroidism of renal origin; E21.3 Hyperparathyroidism, unspecified; F41.9 Anxiety disorder, unspecified; D63.8 Anemia in other chronic diseases classified elsewhere; D50.9 Iron deficiency anemia, unspecified; I48.91 Unspecified atrial fibrillation; E11.43 Type 2 diabetes mellitus with diabetic autonomic (poly)neuropathy; E11.22 Type 2 diabetes mellitus with diabetic chronic kidney disease; G40.909 Epilepsy, unspecified, not intractable, without status epilepticus; I16.0 Hypertensive urgency; E78.5 Hyperlipidemia, unspecified; E87.70 Fluid overload, unspecified; E87.5 Hyperkalemia; G89.29 Other chronic pain; Y83.0 Surgical operation with transplant of whole organ as the cause of abnormal reaction of the patient, or of later complication, without mention of misadventure at the time of the procedure; Z96.89 Presence of other specified functional implants; Z90.49 Acquired absence of other specified parts of digestive tract; D72.829 Elevated white blood cell count, unspecified; F17.200 Nicotine dependence, unspecified, uncomplicated; F32.9 Major depressive disorder, single episode, unspecified; I51.7 Cardiomegaly; Z99.2 Dependence on renal dialysis
CPT/HCPCS: 70450; 71045; 71250; 74176; 80047; 80048; 80069; 80076; 83605; 83690; 83880; 84484; 84999; 85025; 85027; 85610; 87040; 87070; 87205; 87641; 93005; 99281; 99285; J1644; J2060; J2270; J2543; J3010

== ENCOUNTER 2018-01-12 23:07 | Inpatient (IN) | payer OTHER ==
[~2018-01-12] VITALS: Ht 157.5 cm; Wt 47.1 kg
[2018-01-13 00:49] LABS: ALBUMIN 3.8 g/dL (3.2-4.8)
[2018-01-13 00:50] LABS: CHLORIDE 86 mEq/L (99-109); POTASSIUM 3.9 mEq/L (3.7-5.4)
[2018-01-13 00:55] LABS: ALKALINE PHOSPHATASE 76 IU/L (3-129)
[2018-01-13 00:56] LABS: CREATININE 3.7 mg/dL (0.6-1.3); GFR ESTIMATE (CALCULATED) 15 mL/min/; GLUCOSE 57 mg/dL (70-99); SODIUM 143 mEq/L (136-147); TOTAL BILIRUBIN 0.5 mg/dL (0.0-1.0); TOTAL PROTEIN 6.1 g/dL (6.4-8.3)
[2018-01-13 00:57] LABS: AST (GOT) 16 IU/L (2-34); UREA NITROGEN (BUN) 42 mg/dL (9-23)
[2018-01-13 00:58] LABS: ALT (GPT) 10 IU/L (3-49); HEMATOCRIT 18.7 % (36.0-46.0); HEMOGLOBIN 6.3 G/DL (11.9-15.5); MCH 34.8 PG (29.0-34.0); MCHC 33.7 G/DL (30.0-36.0); MCV 103.3 FL (83-99); RED BLOOD COUNT 1.81 M/uL (3.80-5.20); WHITE BLOOD COUNT 8.1 K/uL (4.1-10.2)
[2018-01-13 00:59] LABS: LIPASE 280 U/L (1.0-51.0); PLATELET COUNT 230 K/uL (156-360); RBC DIS.WIDTH-CV 8.9 % (11.8-14.6); RBC DIS.WIDTH-SD 61.9 % (39-53)
[2018-01-13 01:11] LABS: TROP-I INTERPRETATION NEGATIVE; TROPONIN-I < 0.01 ng/mL (0.0-0.30)
[2018-01-13 03:11] VITALS: BP 159/104
[2018-01-13 05:40] VITALS: BP 190/109
[2018-01-13 06:48] LABS: INTER. NORMALIZED RATIO 1.1
[2018-01-13 06:49] LABS: HEMATOCRIT 26.8 % (36.0-46.0); MCH 33.5 PG (29.0-34.0); MCHC 32.8 G/DL (30.0-36.0); MCV 101.9 FL (83-99); PLATELET COUNT 197 K/uL (156-360); RBC DIS.WIDTH-CV 17.2 % (11.8-14.6); RBC DIS.WIDTH-SD 62.7 % (39-53); WHITE BLOOD COUNT 5.4 K/uL (4.1-10.2)
[2018-01-13 06:51] LABS: HEMOGLOBIN 8.8 G/DL (11.9-15.5); RED BLOOD COUNT 2.63 M/uL (3.80-5.20)
[2018-01-13 13:38] VITALS: BP 140/95
[2018-01-13 16:29] VITALS: BP 150/90
[2018-01-13 18:08] VITALS: BP 150/90
== END 2018-01-13 18:45 | disposition left against medical advice (07) | DRG 391 ==
LOC: EME 23:07 → 5SOUTH 01-13 03:14 → EDOF 01-13 03:14 → ENRESERV 01-13 03:16 → 5SOUTH 01-13 05:38
PROVIDERS: Emergency Medicine; Hospitalist
PROC: 30233N1 Transfusion of Nonautologous Red Blood Cells into Peripheral Vein, Percutaneous Approach (ICD-10-PCS; principal; 2018-01-13)
DX: K31.84 Gastroparesis (principal); I12.0 Hypertensive chronic kidney disease with stage 5 chronic kidney disease or end stage renal disease; N18.6 End stage renal disease; D63.1 Anemia in chronic kidney disease; K74.60 Unspecified cirrhosis of liver; K76.0 Fatty (change of) liver, not elsewhere classified; E89.2 Postprocedural hypoparathyroidism; G40.909 Epilepsy, unspecified, not intractable, without status epilepticus; K29.60 Other gastritis without bleeding; I48.91 Unspecified atrial fibrillation; Z96.89 Presence of other specified functional implants; E78.5 Hyperlipidemia, unspecified; F32.9 Major depressive disorder, single episode, unspecified; F41.9 Anxiety disorder, unspecified; G89.29 Other chronic pain; K21.9 Gastro-esophageal reflux disease without esophagitis; K59.00 Constipation, unspecified; F17.200 Nicotine dependence, unspecified, uncomplicated; Z91.14 Patient's other noncompliance with medication regimen; Z99.2 Dependence on renal dialysis
CPT/HCPCS: 80053; 81003; 82272; 83690; 84484; 85027; 85610; 86850; 86900; 86901; 86920; 93005; 99281; 99285; C9113; J1170; J2405; J3010; J7040; P9016; S0028

== ENCOUNTER 2018-01-17 14:14 | Inpatient (IN) | payer OTHER ==
[2018-01-17] VITALS (7 sets, daily range): BP systolic 118–139; BP diastolic 80–94
[~2018-01-17] VITALS: Ht 157.5 cm; Wt 45.7 kg
[2018-01-17 16:22] LABS: HEMATOCRIT 28.2 % (36.0-46.0); HEMOGLOBIN 9.5 G/DL (11.9-15.5); MCH 34.2 PG (29.0-34.0); MCHC 33.7 G/DL (30.0-36.0); MCV 101.4 FL (83-99); RBC DIS.WIDTH-CV 17.2 % (11.8-14.6); RBC DIS.WIDTH-SD 63.4 % (39-53); RED BLOOD COUNT 2.78 M/uL (3.80-5.20); WHITE BLOOD COUNT 13.7 K/uL (4.1-10.2)
[2018-01-17 16:41] LABS: ALBUMIN 4.3 g/dL (3.2-4.8); CHLORIDE 88 mEq/L (99-109); SODIUM 139 mEq/L (136-147)
[2018-01-17 16:43] LABS: GLUCOSE 103 mg/dL (70-99)
[2018-01-17 16:44] LABS: TOTAL PROTEIN 6.9 g/dL (6.4-8.3)
[2018-01-17 16:47] LABS: ALKALINE PHOSPHATASE 81 IU/L (3-129)
[2018-01-17 16:48] LABS: UREA NITROGEN (BUN) 62 mg/dL (9-23)
[2018-01-17 16:49] LABS: AST (GOT) 18 IU/L (2-34)
[2018-01-17 16:50] LABS: ALT (GPT) 10 IU/L (3-49); CREATININE 8.4 mg/dL (0.6-1.3); GFR ESTIMATE (CALCULATED) 6 mL/min/; POTASSIUM 6.2 mEq/L (3.7-5.4); TOTAL BILIRUBIN 1.3 mg/dL (0.0-1.0)
[2018-01-17 16:57] LABS: PLATELET COUNT 269 K/uL (156-360)
[2018-01-17 21:27] LABS: CHLORIDE 91 mEq/L (99-109); POTASSIUM 5.3 mEq/L (3.7-5.4); SODIUM 141 mEq/L (136-147)
[2018-01-17 21:32] LABS: CREATININE 8.6 mg/dL (0.6-1.3); GFR ESTIMATE (CALCULATED) 6 mL/min/
[2018-01-17 21:33] LABS: UREA NITROGEN (BUN) 64 mg/dL (9-23)
[2018-01-17 21:37] LABS: GLUCOSE 56 mg/dL (70-99)
[2018-01-17 23:42] LABS: INTER. NORMALIZED RATIO 1.1
[2018-01-18] VITALS (25 sets, daily range): BP systolic 110–154; BP diastolic 66–104
[2018-01-18 07:22] LABS: BASOPHIL (%) 0.4 % (0-1); EOSINOPHIL (%) 0.8 % (0-5); EOSINOPHIL COUNT 0.1 K/uL (0-0.3); HEMATOCRIT 24.2 % (36.0-46.0); IMMATURE GRANULOCYTE (%) 0.4 % (0.0-0.7); LYMPHOCYTE (%) 15.8 % (15-42); LYMPHOCYTE COUNT 1.5 K/uL (1.0-2.8); MCH 33.8 PG (29.0-34.0); MCHC 33.1 G/DL (30.0-36.0); MCV 102.1 FL (83-99); MONOCYTE (%) 8.9 % (3-12); MONOCYTE COUNT 0.8 K/uL (0-0.8); NEUTROPHIL (%) 73.7 % (45-76); RBC DIS.WIDTH-CV 17.2 % (11.8-14.6); RBC DIS.WIDTH-SD 63.7 % (39-53); RED BLOOD COUNT 2.37 M/uL (3.80-5.20); WHITE BLOOD COUNT 9.5 K/uL (4.1-10.2)
[2018-01-18 07:23] LABS: ALBUMIN 3.7 G/DL (3.2-4.8); ALKALINE PHOSPHATASE 66 IU/L (3-129); ALT (GPT) 8 IU/L (3-49); AST (GOT) 14 IU/L (2-34); CHLORIDE 88 MEQ/L (99-109); CREATININE 8.5 MG/DL (0.6-1.3); GFR ESTIMATE (CALCULATED) 6 mL/min/; LIPASE 3 U/L (1.0-51.0); POTASSIUM 5.7 MEQ/L (3.7-5.4); TOTAL BILIRUBIN 1.1 MG/DL (0.0-1.0); TOTAL PROTEIN 5.7 G/DL (6.4-8.3); UREA NITROGEN (BUN) 62 mg/dL (9-23)
[2018-01-18 07:25] LABS: PLAT.SUFFICIENCY ADEQUATE
[2018-01-18 07:27] LABS: GLUCOSE 102 mg/dL (70-99); SODIUM 133 MEQ/L (136-147)
[2018-01-18 07:28] LABS: PLATELET COUNT 172 K/uL (156-360)
[2018-01-19 03:45] VITALS: BP 189/98
[2018-01-19 08:00] VITALS: BP 180/110
[2018-01-19 10:59] VITALS: BP 179/109
[2018-01-19] MEDS ORDERED: FENTANYL1 EAC1 TD (14:34)
[2018-01-19 16:00] VITALS: BP 160/90
[2018-01-19 17:00] VITALS: BP 160/90
[2018-01-23] MEDS ORDERED: FENTANYL1 EAC5 TD (14:27)
== END 2018-01-19 18:14 | disposition home or self-care (01) | DRG 304 ==
LOC: EME 14:14 → EDOF 21:52 → 4WEST 21:52 → 4EAST 21:52 → ENRESERV 21:53 → 4WEST 22:29 → ENRESERV 01-18 20:39 → 4EAST 01-18 21:10
PROVIDERS: Emergency Medicine; Obstetrics & Gynecology
PROC: 5A1D70Z Performance of Urinary Filtration, Intermittent, Less than 6 Hours Per Day (ICD-10-PCS; principal; 2018-01-18)
DX: I16.0 Hypertensive urgency (principal); N18.6 End stage renal disease; Z68.1 Body mass index [BMI] 19.9 or less, adult; Z94.0 Kidney transplant status; N25.81 Secondary hyperparathyroidism of renal origin; F33.9 Major depressive disorder, recurrent, unspecified; I12.0 Hypertensive chronic kidney disease with stage 5 chronic kidney disease or end stage renal disease; K31.84 Gastroparesis; K21.9 Gastro-esophageal reflux disease without esophagitis; F41.9 Anxiety disorder, unspecified; G43.909 Migraine, unspecified, not intractable, without status migrainosus; E87.5 Hyperkalemia; Z60.2 Problems related to living alone; I48.2 Chronic atrial fibrillation; E83.52 Hypercalcemia; D63.1 Anemia in chronic kidney disease; Z99.2 Dependence on renal dialysis; Z90.49 Acquired absence of other specified parts of digestive tract; Z79.01 Long term (current) use of anticoagulants; Z86.718 Personal history of other venous thrombosis and embolism; Z91.14 Patient's other noncompliance with medication regimen
CPT/HCPCS: 70450; 71045; 80047; 80048 91; 80053; 83690; 85025; 85027; 85610; 87641; 93005; 99281; 99285; J0360; J0881; J1270; J1644; J1756; J2405; J3010; J7040; J7050; Q0164

== ENCOUNTER 2018-01-23 09:18 | Inpatient (IN) | payer OTHER ==
[2018-01-23] VITALS (9 sets, daily range): BP systolic 146–170; BP diastolic 11–110
[~2018-01-23] VITALS: Ht 157.5 cm; Wt 45.3 kg
[~2018-01-23 09:18] MED LIST changes: +FENTANYL1 EAC1 TD
[2018-01-23 10:25] LABS: BASOPHIL (%) 0.6 % (0-1); BASOPHIL COUNT 0.1 K/uL (0-0.1); EOSINOPHIL (%) 0.7 % (0-5); EOSINOPHIL COUNT 0.1 K/uL (0-0.3); HEMATOCRIT 29.8 % (36.0-46.0); IMMATURE GRANULOCYTE (%) 0.2 % (0.0-0.7); LYMPHOCYTE (%) 14.7 % (15-42); LYMPHOCYTE COUNT 1.2 K/uL (1.0-2.8); MCH 34.1 PG (29.0-34.0); MCHC 33.9 G/DL (30.0-36.0); MCV 100.7 FL (83-99); MONOCYTE (%) 9.5 % (3-12); MONOCYTE COUNT 0.8 K/uL (0-0.8); NEUTROPHIL (%) 74.3 % (45-76); NEUTROPHIL COUNT 6.1 K/uL (1.8-6.4); RBC DIS.WIDTH-CV 16.3 % (11.8-14.6); RBC DIS.WIDTH-SD 59.3 % (39-53); WHITE BLOOD COUNT 8.2 K/uL (4.1-10.2)
[2018-01-23 10:27] LABS: HEMOGLOBIN 10.1 G/DL (11.9-15.5); PLATELET COUNT 241 K/uL (156-360); RED BLOOD COUNT 2.96 M/uL (3.80-5.20)
[2018-01-23 10:35] LABS: ALBUMIN 4.5 g/dL (3.2-4.8); CHLORIDE 87 mEq/L (99-109); SODIUM 138 mEq/L (136-147)
[2018-01-23 10:37] LABS: GLUCOSE 112 mg/dL (70-99); TOTAL PROTEIN 7.1 g/dL (6.4-8.3)
[2018-01-23 10:39] LABS: TOTAL BILIRUBIN 1.1 mg/dL (0.0-1.0)
[2018-01-23 10:41] LABS: ALKALINE PHOSPHATASE 85 IU/L (3-129); GFR ESTIMATE (CALCULATED) 10 mL/min/
[2018-01-23 10:43] LABS: AST (GOT) 17 IU/L (2-34)
[2018-01-23 10:44] LABS: ALT (GPT) 8 IU/L (3-49); CREATININE 5.4 mg/dL (0.6-1.3); LIPASE 7 U/L (1.0-51.0); UREA NITROGEN (BUN) 29 mg/dL (9-23)
[2018-01-23] MEDS ORDERED: FENTANYL1 EAC1 TD (14:27)
[2018-01-23 15:12] LABS: BASOPHIL (%) 0.5 % (0-1); EOSINOPHIL (%) 0.1 % (0-5); HEMATOCRIT 30.5 % (36.0-46.0); HEMOGLOBIN 10.4 G/DL (11.9-15.5); IMMATURE GRANULOCYTE (%) 0.4 % (0.0-0.7); LYMPHOCYTE (%) 11.8 % (15-42); LYMPHOCYTE COUNT 0.9 K/uL (1.0-2.8); MCHC 34.1 G/DL (30.0-36.0); MCV 99.7 FL (83-99); MONOCYTE (%) 6.8 % (3-12); MONOCYTE COUNT 0.5 K/uL (0-0.8); NEUTROPHIL (%) 80.4 % (45-76); NEUTROPHIL COUNT 5.9 K/uL (1.8-6.4); PLATELET COUNT 216 K/uL (156-360); RBC DIS.WIDTH-CV 16.4 % (11.8-14.6); RBC DIS.WIDTH-SD 59.2 % (39-53); RED BLOOD COUNT 3.06 M/uL (3.80-5.20); WHITE BLOOD COUNT 7.4 K/uL (4.1-10.2)
[2018-01-24] VITALS (14 sets, daily range): BP systolic 124–181; BP diastolic 76–118
[2018-01-24 06:22] LABS: CHLORIDE 86 MEQ/L (99-109); CREATININE 6.3 MG/DL (0.6-1.3); GFR ESTIMATE (CALCULATED) 8 mL/min/; GLUCOSE 94 mg/dL (70-99); SODIUM 131 MEQ/L (136-147); UREA NITROGEN (BUN) 36 mg/dL (9-23)
[2018-01-25 00:43] VITALS: BP 134/68
[2018-01-25 04:14] VITALS: BP 136/72
[2018-01-25 08:06] VITALS: BP 139/91
[2018-01-25 08:11] VITALS: BP 150/96
[2018-01-25 09:53] VITALS: BP 158/92
[2018-01-25 11:00] VITALS: BP 158/92
== END 2018-01-25 12:03 | disposition home or self-care (01) | DRG 304 ==
LOC: EME 09:18 → EDOF 14:13 → 4WEST 14:13 → ENRESERV 14:18 → 4WEST 15:16 → ENRESERV 01-24 08:49 → 2EAST 01-24 12:07
PROVIDERS: Emergency Medicine; Specialist
PROC: 5A1D70Z Performance of Urinary Filtration, Intermittent, Less than 6 Hours Per Day (ICD-10-PCS; principal; 2018-01-24)
DX: I16.0 Hypertensive urgency (principal); I12.0 Hypertensive chronic kidney disease with stage 5 chronic kidney disease or end stage renal disease; T86.12 Kidney transplant failure; N18.6 End stage renal disease; K31.84 Gastroparesis; Z99.2 Dependence on renal dialysis; E83.39 Other disorders of phosphorus metabolism; G89.29 Other chronic pain; G40.909 Epilepsy, unspecified, not intractable, without status epilepticus; I48.91 Unspecified atrial fibrillation; D63.1 Anemia in chronic kidney disease; F50.89 Other specified eating disorder; Z68.1 Body mass index [BMI] 19.9 or less, adult; E78.5 Hyperlipidemia, unspecified; E89.0 Postprocedural hypothyroidism; N25.81 Secondary hyperparathyroidism of renal origin; K21.9 Gastro-esophageal reflux disease without esophagitis; F41.8 Other specified anxiety disorders; F17.200 Nicotine dependence, unspecified, uncomplicated; F12.10 Cannabis abuse, uncomplicated; Z86.718 Personal history of other venous thrombosis and embolism; Z96.89 Presence of other specified functional implants; Z82.49 Family history of ischemic heart disease and other diseases of the circulatory system; Z83.3 Family history of diabetes mellitus
CPT/HCPCS: 71045; 74176; 80048; 80053; 82330; 83605; 83690; 85025; 85025 91; 87641; 94760; 94799; 99281; 99285; J2270; J2405; J3010; J7050

== ENCOUNTER 2018-01-29 18:01 | Inpatient (IN) | payer OTHER ==
[~2018-01-29] VITALS: Ht 157.5 cm; Wt 48.6 kg
[2018-01-29 19:45] LABS: BASOPHIL (%) 0.4 % (0-1); EOSINOPHIL (%) 1.9 % (0-5); EOSINOPHIL COUNT 0.1 K/uL (0-0.3); HEMATOCRIT 27.3 % (36.0-46.0); HEMOGLOBIN 9.2 G/DL (11.9-15.5); IMMATURE GRANULOCYTE (%) 0.6 % (0.0-0.7); LYMPHOCYTE (%) 25.6 % (15-42); LYMPHOCYTE COUNT 1.4 K/uL (1.0-2.8); MCH 34.8 PG (29.0-34.0); MCHC 33.7 G/DL (30.0-36.0); MCV 103.4 FL (83-99); MONOCYTE (%) 14.6 % (3-12); MONOCYTE COUNT 0.8 K/uL (0-0.8); NEUTROPHIL (%) 56.9 % (45-76); NEUTROPHIL COUNT 3.1 K/uL (1.8-6.4); PLATELET COUNT 164 K/uL (156-360); RBC DIS.WIDTH-CV 17.2 % (11.8-14.6); RBC DIS.WIDTH-SD 65.3 % (39-53); RED BLOOD COUNT 2.64 M/uL (3.80-5.20); WHITE BLOOD COUNT 5.4 K/uL (4.1-10.2)
[2018-01-29 19:54] LABS: ALBUMIN 4.1 g/dL (3.2-4.8); CHLORIDE 87 mEq/L (99-109); POTASSIUM 4.5 mEq/L (3.7-5.4); SODIUM 136 mEq/L (136-147)
[2018-01-29 19:56] LABS: GLUCOSE 90 mg/dL (70-99); TOTAL PROTEIN 6.5 g/dL (6.4-8.3)
[2018-01-29 19:58] LABS: TOTAL BILIRUBIN 0.9 mg/dL (0.0-1.0)
[2018-01-29 20:00] LABS: ALKALINE PHOSPHATASE 88 IU/L (3-129)
[2018-01-29 20:01] LABS: UREA NITROGEN (BUN) 23 mg/dL (9-23)
[2018-01-29 20:02] LABS: AST (GOT) 18 IU/L (2-34)
[2018-01-29 20:03] LABS: ALT (GPT) 14 IU/L (3-49); LIPASE 4 U/L (1.0-51.0)
[2018-01-29 20:13] LABS: CREATININE 4.9 mg/dL (0.6-1.3); GFR ESTIMATE (CALCULATED) 11 mL/min/
[2018-01-30 03:37] VITALS: BP 181/107
[2018-01-30 07:39] VITALS: BP 148/79
[2018-01-30 11:10] VITALS: BP 117/66
[2018-01-30] MEDS ORDERED: LABETALOL HCL300 MG PO (12:43)
[2018-01-30 14:52] VITALS: BP 115/70
[2018-01-30 18:07] VITALS: BP 125/76
[2018-01-30 23:08] VITALS: BP 138/90
[2018-01-31 04:08] VITALS: BP 102/67
[2018-01-31 06:08] LABS: HEMOGLOBIN 8.3 G/DL (11.9-15.5); MCH 33.9 PG (29.0-34.0); MCHC 33.2 G/DL (30.0-36.0); PLATELET COUNT 134 K/uL (156-360); RBC DIS.WIDTH-CV 16.5 % (11.8-14.6); RBC DIS.WIDTH-SD 61.6 % (39-53); RED BLOOD COUNT 2.45 M/uL (3.80-5.20); WHITE BLOOD COUNT 4.2 K/uL (4.1-10.2)
[2018-01-31 06:47] LABS: ALBUMIN 3.5 G/DL (3.2-4.8); CHLORIDE 87 MEQ/L (99-109); GLUCOSE 83 mg/dL (70-99); POTASSIUM 5.4 MEQ/L (3.7-5.4); SODIUM 134 MEQ/L (136-147)
[2018-01-31 07:02] LABS: CREATININE 7.1 MG/DL (0.6-1.3); GFR ESTIMATE (CALCULATED) 7 mL/min/; UREA NITROGEN (BUN) 43 mg/dL (9-23)
[2018-01-31] MEDS ORDERED: FENTANYL1 EAC5 TD (11:47)
[2018-01-31] MEDS ORDERED: OXYCODONE HCL5 MG PO (11:54)
[2018-01-31 12:07] VITALS: BP 134/86
== END 2018-01-31 13:01 | disposition home or self-care (01) | DRG 304 ==
LOC: EME 18:01 → 4EAST 01-30 02:36 → EDOF 01-30 02:36 → ENRESERV 01-30 02:37 → 4EAST 01-30 03:27 → ENRESERV 01-30 11:28 → 5SOUTH 01-30 14:45
PROVIDERS: Emergency Medicine; Internal Medicine
PROC: 5A1D70Z Performance of Urinary Filtration, Intermittent, Less than 6 Hours Per Day (ICD-10-PCS; principal; 2018-01-31)
DX: I16.1 Hypertensive emergency (principal); I12.0 Hypertensive chronic kidney disease with stage 5 chronic kidney disease or end stage renal disease; N18.6 End stage renal disease; T86.12 Kidney transplant failure; N25.81 Secondary hyperparathyroidism of renal origin; K31.84 Gastroparesis; G89.29 Other chronic pain; R10.30 Lower abdominal pain, unspecified; K21.9 Gastro-esophageal reflux disease without esophagitis; E78.5 Hyperlipidemia, unspecified; G43.909 Migraine, unspecified, not intractable, without status migrainosus; F41.9 Anxiety disorder, unspecified; F32.9 Major depressive disorder, single episode, unspecified; D64.9 Anemia, unspecified; F17.210 Nicotine dependence, cigarettes, uncomplicated; Z96.89 Presence of other specified functional implants; Z91.14 Patient's other noncompliance with medication regimen; Z99.2 Dependence on renal dialysis; Z79.01 Long term (current) use of anticoagulants; Z88.1 Allergy status to other antibiotic agents; Z79.891 Long term (current) use of opiate analgesic
CPT/HCPCS: 80053; 80069; 83690; 85025; 85027; 94799; 99281; 99285; J0360; J0881; J1756; J2405; J3010; J7050; Q0164

== ENCOUNTER 2018-02-08 05:48 | Inpatient (IN) | payer OTHER ==
[~2018-02-08] VITALS: Ht 157.5 cm; Wt 48.4 kg
[2018-02-08] VITALS (13 sets, daily range): BP systolic 116–218; BP diastolic 74–136
[2018-02-08 06:37] LABS: HEMATOCRIT 34.3 % (36.0-46.0); MCH 34.3 PG (29.0-34.0); MCHC 34.1 G/DL (30.0-36.0); MCV 100.6 FL (83-99); RBC DIS.WIDTH-CV 16.4 % (11.8-14.6); RBC DIS.WIDTH-SD 60.8 % (39-53); WHITE BLOOD COUNT 6.6 K/uL (4.1-10.2)
[2018-02-08 06:40] LABS: HEMOGLOBIN 11.7 G/DL (11.9-15.5); PLATELET COUNT 234 K/uL (156-360); RED BLOOD COUNT 3.41 M/uL (3.80-5.20)
[2018-02-08 06:52] LABS: TROP-I INTERPRETATION NEGATIVE; TROPONIN-I < 0.01 ng/mL (0.0-0.30)
[2018-02-08 06:54] LABS: CHLORIDE 91 mEq/L (99-109); POTASSIUM 4.4 mEq/L (3.7-5.4); SODIUM 140 mEq/L (136-147)
[2018-02-08 06:56] LABS: GLUCOSE 125 mg/dL (70-99)
[2018-02-08 07:00] LABS: CREATININE 4.2 mg/dL (0.6-1.3); GFR ESTIMATE (CALCULATED) 13 mL/min/; UREA NITROGEN (BUN) 18 mg/dL (9-23)
[2018-02-08 07:31] LABS: INTER. NORMALIZED RATIO 1.1
[2018-02-08 07:33] LABS: PTT 30.5 SEC (25-37)
[2018-02-08 15:47] LABS: AMYLASE 67 IU/L (1-118)
[2018-02-08 15:56] LABS: LIPASE 12 U/L (1.0-51.0)
[2018-02-09] VITALS (15 sets, daily range): BP systolic 95–189; BP diastolic 58–115
[2018-02-09 06:20] LABS: CHLORIDE 90 MEQ/L (99-109); POTASSIUM 4.2 MEQ/L (3.7-5.4); SODIUM 137 MEQ/L (136-147); UREA NITROGEN (BUN) 25 mg/dL (9-23)
[2018-02-09 06:38] LABS: CREATININE 5.7 MG/DL (0.6-1.3); GFR ESTIMATE (CALCULATED) 9 mL/min/; GLUCOSE 83 mg/dL (70-99)
[2018-02-09] MEDS ORDERED: FLUVOXAMINE MA100 M1 PO (13:00)
[2018-02-09] MEDS ORDERED: DURAGESIC50 MCG TD (13:00)
[2018-02-09] MEDS ORDERED: COUMADIN5 MG PO (13:00)
[2018-02-10 00:53] VITALS: BP 180/79
[2018-02-10 02:12] VITALS: BP 163/88
[2018-02-10 03:22] VITALS: BP 146/88
[2018-02-10 07:35] VITALS: BP 148/89
[2018-02-10 08:31] VITALS: BP 155/100
== END 2018-02-10 11:00 | disposition home or self-care (01) | DRG 304 ==
LOC: EME 05:48 → ENRESERV 12:23 → 4WEST 12:26 → EDOF 12:26 → 4WEST 13:34 → ENRESERV 02-09 18:01 → 2EAST 02-09 19:49
PROVIDERS: Emergency Medicine; Internal Medicine Critical Care Medicine
PROC: 5A1D70Z Performance of Urinary Filtration, Intermittent, Less than 6 Hours Per Day (ICD-10-PCS; principal; 2018-02-09)
DX: I16.1 Hypertensive emergency (principal); N18.6 End stage renal disease; I12.0 Hypertensive chronic kidney disease with stage 5 chronic kidney disease or end stage renal disease; Z99.2 Dependence on renal dialysis; K31.84 Gastroparesis; G89.29 Other chronic pain; F17.200 Nicotine dependence, unspecified, uncomplicated; D64.9 Anemia, unspecified
CPT/HCPCS: 71045; 80048; 82150; 83690; 84484; 85027; 85610; 85730; 87641; 99281; 99285; J1630; J2270; J2405; J2550; J3010; J7040; J7050; Q0164

== ENCOUNTER 2018-02-14 06:37 | Emergency (ER) | payer OTHER ==
[~2018-02-14] VITALS: Ht 157.5 cm; Wt 45.3 kg
[~2018-02-14 06:37] MED LIST changes: +DURAGESIC50 MCG TD; +FLUVOXAMINE MA100 M1 PO
[2018-02-14 07:43] LABS: HEMATOCRIT 27.5 % (36.0-46.0); HEMOGLOBIN 9.3 G/DL (11.9-15.5); MCH 34.6 PG (29.0-34.0); MCHC 33.8 G/DL (30.0-36.0); MCV 102.2 FL (83-99); PLATELET COUNT 166 K/uL (156-360); RBC DIS.WIDTH-CV 16.1 % (11.8-14.6); RBC DIS.WIDTH-SD 60.8 % (39-53); RED BLOOD COUNT 2.69 M/uL (3.80-5.20); WHITE BLOOD COUNT 7.3 K/uL (4.1-10.2)
[2018-02-14 08:11] LABS: ALBUMIN 4.1 G/DL (3.2-4.8); ALKALINE PHOSPHATASE 74 IU/L (3-129); ALT (GPT) 7 IU/L (3-49); AST (GOT) 15 IU/L (2-34); CHLORIDE 91 MEQ/L (99-109); GLUCOSE 95 mg/dL (70-99); POTASSIUM 4.6 MEQ/L (3.7-5.4); SODIUM 137 MEQ/L (136-147); TOTAL BILIRUBIN 0.7 MG/DL (0.0-1.0); TOTAL PROTEIN 5.9 G/DL (6.4-8.3)
[2018-02-14 08:19] LABS: GFR ESTIMATE (CALCULATED) 7 mL/min/; UREA NITROGEN (BUN) 40 mg/dL (9-23)
[2018-02-14 09:15] LABS: LIPASE 3 U/L (1.0-51.0)
[2018-02-14] MEDS ORDERED: ZOFRAN ODT4 MG PO (09:22)
[2018-02-14 10:43] VITALS: BP 200/111
== END 2018-02-14 10:45 | disposition home or self-care (01) ==
LOC: EME 06:37
PROVIDERS: Nurse Practitioner Family
DX: I12.9 Hypertensive chronic kidney disease with stage 1 through stage 4 chronic kidney disease, or unspecified chronic kidney disease (principal); N18.9 Chronic kidney disease, unspecified; K31.84 Gastroparesis; D64.9 Anemia, unspecified; T46.5X6A Underdosing of other antihypertensive drugs, initial encounter; Z91.128 Patient's intentional underdosing of medication regimen for other reason; Z99.2 Dependence on renal dialysis; Z94.0 Kidney transplant status; K21.9 Gastro-esophageal reflux disease without esophagitis; F32.9 Major depressive disorder, single episode, unspecified; E78.5 Hyperlipidemia, unspecified; Z90.49 Acquired absence of other specified parts of digestive tract; F17.200 Nicotine dependence, unspecified, uncomplicated; Z79.01 Long term (current) use of anticoagulants; Z86.69 Personal history of other diseases of the nervous system and sense organs; Z88.1 Allergy status to other antibiotic agents; F41.9 Anxiety disorder, unspecified
CPT/HCPCS: 71045; 80047; 80053; 83605; 83690; 85027; 99281; 99285; J0360; J0780; J3010; J7050

== ENCOUNTER 2018-02-17 20:29 | Observation (INO) | payer OTHER ==
[~2018-02-17] VITALS: Ht 157.5 cm; Wt 46.1 kg
[~2018-02-17 20:29] MED LIST changes: +ZOFRAN ODT4 MG PO
[2018-02-17 22:05] LABS: HEMATOCRIT 32.9 % (36.0-46.0); MCH 34.1 PG (29.0-34.0); MCHC 33.4 G/DL (30.0-36.0); MCV 101.9 FL (83-99); PLATELET COUNT 205 K/uL (156-360); RBC DIS.WIDTH-CV 15.7 % (11.8-14.6); RBC DIS.WIDTH-SD 58.1 % (39-53); WHITE BLOOD COUNT 7.5 K/uL (4.1-10.2)
[2018-02-17 22:20] LABS: RED BLOOD COUNT 3.23 M/uL (3.80-5.20)
[2018-02-17 22:27] LABS: ALBUMIN 4.5 g/dL (3.2-4.8); CHLORIDE 91 mEq/L (99-109); POTASSIUM 4.3 mEq/L (3.7-5.4); SODIUM 140 mEq/L (136-147)
[2018-02-17 22:30] LABS: GLUCOSE 117 mg/dL (70-99); TOTAL PROTEIN 7.2 g/dL (6.4-8.3)
[2018-02-17 22:32] LABS: TOTAL BILIRUBIN 0.8 mg/dL (0.0-1.0)
[2018-02-17 22:33] LABS: ALKALINE PHOSPHATASE 82 IU/L (3-129)
[2018-02-17 22:34] LABS: UREA NITROGEN (BUN) 28 mg/dL (9-23)
[2018-02-17 22:35] LABS: AST (GOT) 17 IU/L (2-34)
[2018-02-17 22:36] LABS: ALT (GPT) 8 IU/L (3-49); TROP-I INTERPRETATION NEGATIVE; TROPONIN-I < 0.01 ng/mL (0.0-0.30)
[2018-02-17 22:37] LABS: LIPASE 7 U/L (1.0-51.0)
[2018-02-17 22:41] LABS: CREATININE 5.6 mg/dL (0.6-1.3); GFR ESTIMATE (CALCULATED) 9 mL/min/
[2018-02-17 22:46] LABS: QUANTITATIVE HCG < 4.0 MIU/ML
[2018-02-18 09:00] VITALS: BP 170/103
[2018-02-18 12:18] VITALS: BP 156/99
[2018-02-18 14:41] LABS: HEMATOCRIT 28.9 % (36.0-46.0); HEMOGLOBIN 9.5 G/DL (11.9-15.5); MCH 33.8 PG (29.0-34.0); MCHC 32.9 G/DL (30.0-36.0); MCV 102.8 FL (83-99); NRBC (%) 0.3 /100 WBC (0-0); PLATELET COUNT 179 K/uL (156-360); RBC DIS.WIDTH-CV 16.2 % (11.8-14.6); RBC DIS.WIDTH-SD 60.4 % (39-53); RED BLOOD COUNT 2.81 M/uL (3.80-5.20); WHITE BLOOD COUNT 6.9 K/uL (4.1-10.2)
[2018-02-18 15:00] LABS: CHLORIDE 85 MEQ/L (99-109); POTASSIUM 3.9 MEQ/L (3.7-5.4); SODIUM 133 MEQ/L (136-147)
[2018-02-18 15:06] LABS: CREATININE 5.8 MG/DL (0.6-1.3); GFR ESTIMATE (CALCULATED) 9 mL/min/; GLUCOSE 118 mg/dL (70-99); PHOSPHORUS 4.1 mg/dL (2.5-4.9); UREA NITROGEN (BUN) 34 mg/dL (9-23)
[2018-02-18 15:56] VITALS: BP 150/70
[2018-02-18 18:19] VITALS: BP 196/61
== END 2018-02-18 19:00 | disposition home or self-care (01) ==
LOC: EME → EDBD 20:29 → EME 20:29 → EDOF 02-18 08:08 → 4SOUTH 02-18 08:50
PROVIDERS: Emergency Medicine; Hospitalist; Internal Medicine
PROC: 5A1D70Z Performance of Urinary Filtration, Intermittent, Less than 6 Hours Per Day (ICD-10-PCS; principal; 2018-02-18)
DX: I16.1 Hypertensive emergency (principal); I12.0 Hypertensive chronic kidney disease with stage 5 chronic kidney disease or end stage renal disease; N18.6 End stage renal disease; Z99.2 Dependence on renal dialysis; K31.84 Gastroparesis; Z91.14 Patient's other noncompliance with medication regimen; Z91.19 Patient's noncompliance with other medical treatment and regimen; R10.9 Unspecified abdominal pain; R11.2 Nausea with vomiting, unspecified; D63.1 Anemia in chronic kidney disease; T86.12 Kidney transplant failure; Z90.49 Acquired absence of other specified parts of digestive tract; F11.10 Opioid abuse, uncomplicated; Z88.1 Allergy status to other antibiotic agents; Z91.041 Radiographic dye allergy status; Z88.6 Allergy status to analgesic agent; Z88.8 Allergy status to other drugs, medicaments and biological substances; Z79.01 Long term (current) use of anticoagulants
CPT/HCPCS: 74176; 80053; 80069; 83690; 84484; 84702; 85027; 85610; 93005; 99281; 99285; C9113; G0257; G0378; J0881; J2270; J2405; J7050

== ENCOUNTER 2018-02-21 19:31 | Emergency (ER) | payer OTHER ==
[~2018-02-21] VITALS: Ht 157.5 cm; Wt 44.4 kg
[2018-02-21 20:19] LABS: HEMOGLOBIN 9.9 G/DL (11.9-15.5); MCV 103.1 FL (83-99); PLATELET COUNT 175 K/uL (156-360); RBC DIS.WIDTH-CV 16.1 % (11.8-14.6); RBC DIS.WIDTH-SD 60.8 % (39-53); RED BLOOD COUNT 2.91 M/uL (3.80-5.20)
[2018-02-21 20:29] LABS: ALBUMIN 4.1 g/dL (3.2-4.8); CHLORIDE 97 mEq/L (99-109)
[2018-02-21 20:30] LABS: SODIUM 138 mEq/L (136-147)
[2018-02-21 20:32] LABS: GLUCOSE 89 mg/dL (70-99); TOTAL PROTEIN 6.4 g/dL (6.4-8.3)
[2018-02-21 20:34] LABS: TOTAL BILIRUBIN 0.7 mg/dL (0.0-1.0)
[2018-02-21 20:35] LABS: ALKALINE PHOSPHATASE 76 IU/L (3-129)
[2018-02-21 20:37] LABS: AST (GOT) 14 IU/L (2-34); UREA NITROGEN (BUN) 48 mg/dL (9-23)
[2018-02-21 20:38] LABS: ALT (GPT) 7 IU/L (3-49)
[2018-02-21 20:39] LABS: LIPASE 16 U/L (1.0-51.0)
[2018-02-21 20:50] LABS: QUANTITATIVE HCG < 4.0 MIU/ML
[2018-02-21 20:53] LABS: GFR ESTIMATE (CALCULATED) 6 mL/min/; POTASSIUM 4.9 mEq/L (3.7-5.4)
[2018-02-21 23:05] VITALS: BP 176/118
== END 2018-02-21 23:05 | disposition home or self-care (01) ==
LOC: EME → EDBD 19:31 → EME 19:31
DX: R11.10 Vomiting, unspecified (principal); I12.9 Hypertensive chronic kidney disease with stage 1 through stage 4 chronic kidney disease, or unspecified chronic kidney disease; N19 Unspecified kidney failure; R94.31 Abnormal electrocardiogram [ECG] [EKG]; E78.5 Hyperlipidemia, unspecified; K21.9 Gastro-esophageal reflux disease without esophagitis; K31.84 Gastroparesis; F32.9 Major depressive disorder, single episode, unspecified; F41.9 Anxiety disorder, unspecified; F17.200 Nicotine dependence, unspecified, uncomplicated; Z79.891 Long term (current) use of opiate analgesic; Z79.01 Long term (current) use of anticoagulants; Z99.2 Dependence on renal dialysis; Z94.0 Kidney transplant status; Z86.79 Personal history of other diseases of the circulatory system; Z87.448 Personal history of other diseases of urinary system; Z96.89 Presence of other specified functional implants; Z98.890 Other specified postprocedural states; Z90.49 Acquired absence of other specified parts of digestive tract; Z88.1 Allergy status to other antibiotic agents; Z91.048 Other nonmedicinal substance allergy status; Z88.8 Allergy status to other drugs, medicaments and biological substances
CPT/HCPCS: 71046; 80053; 81003; 83690; 84702; 85027; 93005; 99281; 99284; J0360; J2270; J2405

== ENCOUNTER 2018-02-24 18:50 | Emergency (ER) | payer OTHER ==
[~2018-02-24] VITALS: Ht 157.5 cm; Wt 45.0 kg
[2018-02-24 19:59] LABS: HEMATOCRIT 31.9 % (36.0-46.0); HEMOGLOBIN 10.5 G/DL (11.9-15.5); MCH 34.3 PG (29.0-34.0); MCHC 32.9 G/DL (30.0-36.0); MCV 104.2 FL (83-99); PLATELET COUNT 181 K/uL (156-360); RBC DIS.WIDTH-CV 15.9 % (11.8-14.6); RBC DIS.WIDTH-SD 60.9 % (39-53); RED BLOOD COUNT 3.06 M/uL (3.80-5.20); WHITE BLOOD COUNT 10.7 K/uL (4.1-10.2)
[2018-02-24 20:07] LABS: ALBUMIN 4.1 g/dL (3.2-4.8); CHLORIDE 96 mEq/L (99-109); POTASSIUM 5.2 mEq/L (3.7-5.4); SODIUM 137 mEq/L (136-147)
[2018-02-24 20:09] LABS: TOTAL PROTEIN 6.4 g/dL (6.4-8.3)
[2018-02-24 20:11] LABS: GLUCOSE 113 mg/dL (70-99); TOTAL BILIRUBIN 0.8 mg/dL (0.0-1.0)
[2018-02-24 20:13] LABS: ALKALINE PHOSPHATASE 91 IU/L (3-129); GFR ESTIMATE (CALCULATED) 9 mL/min/
[2018-02-24 20:14] LABS: CREATININE 5.9 mg/dL (0.6-1.3); UREA NITROGEN (BUN) 28 mg/dL (9-23)
[2018-02-24 20:16] LABS: ALT (GPT) 13 IU/L (3-49); LIPASE 13 U/L (1.0-51.0)
[2018-02-24 20:17] LABS: AST (GOT) 21 IU/L (2-34)
[2018-02-24 20:24] LABS: QUANTITATIVE HCG < 4.0 MIU/ML
[2018-02-24 23:05] VITALS: BP 204/124
== END 2018-02-24 23:07 | disposition home or self-care (01) ==
LOC: EME 18:50
PROVIDERS: Emergency Medicine
DX: I12.0 Hypertensive chronic kidney disease with stage 5 chronic kidney disease or end stage renal disease (principal); N18.6 End stage renal disease; Z99.2 Dependence on renal dialysis; K31.84 Gastroparesis; E78.5 Hyperlipidemia, unspecified; K21.9 Gastro-esophageal reflux disease without esophagitis; G43.909 Migraine, unspecified, not intractable, without status migrainosus; R56.9 Unspecified convulsions; F41.9 Anxiety disorder, unspecified; F32.9 Major depressive disorder, single episode, unspecified; F17.200 Nicotine dependence, unspecified, uncomplicated; Z79.01 Long term (current) use of anticoagulants; Z94.0 Kidney transplant status; Z90.49 Acquired absence of other specified parts of digestive tract; Z88.1 Allergy status to other antibiotic agents; Z88.8 Allergy status to other drugs, medicaments and biological substances
CPT/HCPCS: 74022; 80053; 81003; 83690; 84702; 85027; 99281; 99285; J1630; J2060; J2270; J2405

== ENCOUNTER 2018-02-28 06:27 | Emergency (ER) | payer OTHER ==
[~2018-02-28] VITALS: Ht 157.5 cm; Wt 47.6 kg
[~2018-02-28 06:27] MED LIST changes: -FLUVOXAMINE MA100 M1 PO; +LUVOX50 MG PO
[2018-02-28 08:32] LABS: HEMATOCRIT 27.2 % (36.0-46.0); MCHC 33.1 G/DL (30.0-36.0); MCV 102.6 FL (83-99); PLATELET COUNT 145 K/uL (156-360); RBC DIS.WIDTH-CV 15.7 % (11.8-14.6); RBC DIS.WIDTH-SD 58.2 % (39-53); RED BLOOD COUNT 2.65 M/uL (3.80-5.20); WHITE BLOOD COUNT 7.6 K/uL (4.1-10.2)
[2018-02-28 08:44] LABS: CHLORIDE 98 mEq/L (99-109); POTASSIUM 5.3 mEq/L (3.7-5.4); SODIUM 134 mEq/L (136-147)
[2018-02-28 08:46] LABS: GLUCOSE 90 mg/dL (70-99)
[2018-02-28 08:50] LABS: GFR ESTIMATE (CALCULATED) 7 mL/min/; PTT 44.7 SEC (25-37)
[2018-02-28 08:51] LABS: CREATININE 7.3 mg/dL (0.6-1.3); UREA NITROGEN (BUN) 40 mg/dL (9-23)
[2018-02-28 10:50] VITALS: BP 207/127
== END 2018-02-28 11:07 | disposition home or self-care (01) ==
LOC: EME → EDBD 06:27 → EME 06:27
PROVIDERS: Emergency Medicine
DX: I12.0 Hypertensive chronic kidney disease with stage 5 chronic kidney disease or end stage renal disease (principal); N18.6 End stage renal disease; K31.84 Gastroparesis; Z99.2 Dependence on renal dialysis; Z94.0 Kidney transplant status; E78.5 Hyperlipidemia, unspecified; F32.9 Major depressive disorder, single episode, unspecified; K21.9 Gastro-esophageal reflux disease without esophagitis; F41.9 Anxiety disorder, unspecified; F17.200 Nicotine dependence, unspecified, uncomplicated; Z88.1 Allergy status to other antibiotic agents
CPT/HCPCS: 80048; 85027; 85610; 85730; 99281; 99285; J0360; J1630; J1885; J2060; J2405

== ENCOUNTER 2018-03-02 11:51 | Emergency (ER) | payer OTHER ==
[~2018-03-02] VITALS: Ht 157.5 cm; Wt 46.7 kg
[~2018-03-02 11:51] MED LIST changes: +FLUVOXAMINE MA100 M1 PO; -LUVOX50 MG PO
[2018-03-02 14:08] LABS: BASOPHIL (%) 0.8 % (0-1); BASOPHIL COUNT 0.1 K/uL (0-0.1); EOSINOPHIL (%) 1.9 % (0-5); EOSINOPHIL COUNT 0.1 K/uL (0-0.3); HEMATOCRIT 28.7 % (36.0-46.0); HEMOGLOBIN 9.5 G/DL (11.9-15.5); IMMATURE GRANULOCYTE (%) 0.6 % (0.0-0.7); LYMPHOCYTE (%) 14.4 % (15-42); LYMPHOCYTE COUNT 0.9 K/uL (1.0-2.8); MCH 33.6 PG (29.0-34.0); MCHC 33.1 G/DL (30.0-36.0); MCV 101.4 FL (83-99); MONOCYTE (%) 13.2 % (3-12); MONOCYTE COUNT 0.8 K/uL (0-0.8); NEUTROPHIL (%) 69.1 % (45-76); NEUTROPHIL COUNT 4.3 K/uL (1.8-6.4); PLATELET COUNT 160 K/uL (156-360); RBC DIS.WIDTH-CV 15.3 % (11.8-14.6); RBC DIS.WIDTH-SD 56.9 % (39-53); RED BLOOD COUNT 2.83 M/uL (3.80-5.20); WHITE BLOOD COUNT 6.2 K/uL (4.1-10.2)
[2018-03-02 14:19] LABS: CHLORIDE 99 mEq/L (99-109); SODIUM 138 mEq/L (136-147)
[2018-03-02 14:20] LABS: GLUCOSE 90 mg/dL (70-99)
[2018-03-02 14:24] LABS: GFR ESTIMATE (CALCULATED) 21 mL/min/; POTASSIUM 3.4 mEq/L (3.7-5.4)
[2018-03-02 14:26] LABS: CREATININE 2.7 mg/dL (0.6-1.3); UREA NITROGEN (BUN) 14 mg/dL (9-23)
[2018-03-02 14:27] LABS: LIPASE 16 U/L (1.0-51.0)
[2018-03-02 16:43] VITALS: BP 221/124
== END 2018-03-02 16:44 | disposition left against medical advice (07) ==
LOC: EME 11:51
PROVIDERS: Emergency Medicine
DX: R10.84 Generalized abdominal pain (principal); R11.2 Nausea with vomiting, unspecified; I12.0 Hypertensive chronic kidney disease with stage 5 chronic kidney disease or end stage renal disease; N18.6 End stage renal disease; Z99.2 Dependence on renal dialysis; Z94.0 Kidney transplant status; G89.29 Other chronic pain; Z79.01 Long term (current) use of anticoagulants; Z88.1 Allergy status to other antibiotic agents; F17.200 Nicotine dependence, unspecified, uncomplicated; Z53.29 Procedure and treatment not carried out because of patient's decision for other reasons
CPT/HCPCS: 80048; 83690; 85025; J2270; J2405

== ENCOUNTER 2018-03-06 22:56 | Inpatient (IN) | payer OTHER ==
[~2018-03-06] VITALS: Ht 157.5 cm; Wt 46.5 kg
[~2018-03-06 22:56] MED LIST changes: -FLUVOXAMINE MA100 M1 PO; +LUVOX50 MG PO
[2018-03-07 02:10] LABS: HEMATOCRIT 26.2 % (36.0-46.0); HEMOGLOBIN 8.8 G/DL (11.9-15.5); MCH 33.2 PG (29.0-34.0); MCHC 33.6 G/DL (30.0-36.0); MCV 98.9 FL (83-99); PLATELET COUNT 160 K/uL (156-360); RBC DIS.WIDTH-CV 15.4 % (11.8-14.6); RBC DIS.WIDTH-SD 55.2 % (39-53); RED BLOOD COUNT 2.65 M/uL (3.80-5.20); WHITE BLOOD COUNT 11.9 K/uL (4.1-10.2)
[2018-03-07 02:21] LABS: ALBUMIN 3.8 g/dL (3.2-4.8)
[2018-03-07 02:22] LABS: CHLORIDE 91 mEq/L (99-109); POTASSIUM 4.6 mEq/L (3.7-5.4); SODIUM 131 mEq/L (136-147)
[2018-03-07 02:24] LABS: GLUCOSE 77 mg/dL (70-99); TOTAL PROTEIN 6.5 g/dL (6.4-8.3)
[2018-03-07 02:26] LABS: TOTAL BILIRUBIN 0.9 mg/dL (0.0-1.0)
[2018-03-07 02:27] LABS: ALKALINE PHOSPHATASE 105 IU/L (3-129)
[2018-03-07 02:28] LABS: GFR ESTIMATE (CALCULATED) 7 mL/min/
[2018-03-07 02:29] LABS: AST (GOT) 18 IU/L (2-34)
[2018-03-07 02:31] LABS: ALT (GPT) 12 IU/L (3-49)
[2018-03-07 02:44] LABS: CREATININE 7.3 mg/dL (0.6-1.3); UREA NITROGEN (BUN) 49 mg/dL (9-23)
[2018-03-07 03:37] LABS: LIPASE < 3.0 U/L (1.0-51.0)
[2018-03-07 08:05] VITALS: BP 218/108
[2018-03-07 16:26] LABS: INTER. NORMALIZED RATIO 1.5
[2018-03-07 20:52] VITALS: BP 210/99
[2018-03-08 00:03] VITALS: BP 167/104
[2018-03-08 03:41] VITALS: BP 189/114
[2018-03-08 05:57] LABS: BASOPHIL (%) 0.5 % (0-1); EOSINOPHIL (%) 0.2 % (0-5); HEMOGLOBIN 8.5 G/DL (11.9-15.5); IMMATURE GRANULOCYTE (%) 0.6 % (0.0-0.7); LYMPHOCYTE (%) 9.6 % (15-42); LYMPHOCYTE COUNT 0.6 K/uL (1.0-2.8); MCH 32.6 PG (29.0-34.0); MCHC 32.7 G/DL (30.0-36.0); MCV 99.6 FL (83-99); MONOCYTE (%) 8.7 % (3-12); MONOCYTE COUNT 0.5 K/uL (0-0.8); NEUTROPHIL (%) 80.4 % (45-76); PLATELET COUNT 135 K/uL (156-360); RBC DIS.WIDTH-CV 15.9 % (11.8-14.6); RBC DIS.WIDTH-SD 58.1 % (39-53); RED BLOOD COUNT 2.61 M/uL (3.80-5.20); WHITE BLOOD COUNT 6.2 K/uL (4.1-10.2)
[2018-03-08 06:19] LABS: INTER. NORMALIZED RATIO 1.4
[2018-03-08 06:22] LABS: ALBUMIN 3.5 G/DL (3.2-4.8); ALKALINE PHOSPHATASE 99 IU/L (3-129); ALT (GPT) 10 IU/L (3-49); AST (GOT) 17 IU/L (2-34); CHLORIDE 91 MEQ/L (99-109); GFR ESTIMATE (CALCULATED) 13 mL/min/; GLUCOSE 96 mg/dL (70-99); SODIUM 129 MEQ/L (136-147); TOTAL BILIRUBIN 0.7 MG/DL (0.0-1.0); TOTAL PROTEIN 5.6 G/DL (6.4-8.3)
[2018-03-08 06:30] LABS: CREATININE 4.1 MG/DL (0.6-1.3); UREA NITROGEN (BUN) 23 mg/dL (9-23)
[2018-03-08 07:44] VITALS: BP 146/97
[2018-03-08 20:07] VITALS: BP 163/103
[2018-03-09 04:41] VITALS: BP 170/101
[2018-03-09 05:55] LABS: INTER. NORMALIZED RATIO 1.4
[2018-03-09 05:57] LABS: PTT 32.8 SEC (25-37)
[2018-03-09 06:55] VITALS: BP 101/83
[2018-03-09] MEDS ORDERED: LEVAQUIN750 MG PO (08:03)
[2018-03-09 08:23] LABS: BASOPHIL (%) 0.4 % (0-1); EOSINOPHIL (%) 1.2 % (0-5); EOSINOPHIL COUNT 0.1 K/uL (0-0.3); HEMATOCRIT 28.1 % (36.0-46.0); HEMOGLOBIN 9.1 G/DL (11.9-15.5); IMMATURE GRANULOCYTE (%) 0.4 % (0.0-0.7); LYMPHOCYTE COUNT 0.7 K/uL (1.0-2.8); MCH 32.5 PG (29.0-34.0); MCHC 32.4 G/DL (30.0-36.0); MCV 100.4 FL (83-99); MONOCYTE (%) 7.4 % (3-12); MONOCYTE COUNT 0.6 K/uL (0-0.8); NEUTROPHIL (%) 81.6 % (45-76); NEUTROPHIL COUNT 6.7 K/uL (1.8-6.4); PLATELET COUNT 174 K/uL (156-360); RBC DIS.WIDTH-SD 58.5 % (39-53); WHITE BLOOD COUNT 8.2 K/uL (4.1-10.2)
[2018-03-09 08:37] LABS: ALBUMIN 3.9 G/DL (3.2-4.8); CHLORIDE 89 MEQ/L (99-109); GFR ESTIMATE (CALCULATED) 9 mL/min/; GLUCOSE 96 mg/dL (70-99); PHOSPHORUS 3.6 mg/dL (2.5-4.9); POTASSIUM 4.1 MEQ/L (3.7-5.4); SODIUM 129 MEQ/L (136-147)
[2018-03-09 08:38] LABS: CREATININE 5.6 MG/DL (0.6-1.3); UREA NITROGEN (BUN) 35 mg/dL (9-23)
== END 2018-03-09 13:17 | disposition home or self-care (01) | DRG 193 ==
LOC: EME 22:56 → EDOF 03-07 05:42 → 5SOUTH 03-07 05:42 → ENRESERV 03-07 05:44 → 5SOUTH 03-07 07:17
PROVIDERS: Internal Medicine; Physician Assistant
DX: J18.9 Pneumonia, unspecified organism (principal); N18.6 End stage renal disease; E78.5 Hyperlipidemia, unspecified; E87.1 Hypo-osmolality and hyponatremia; E87.5 Hyperkalemia; F41.9 Anxiety disorder, unspecified; I12.0 Hypertensive chronic kidney disease with stage 5 chronic kidney disease or end stage renal disease; K21.9 Gastro-esophageal reflux disease without esophagitis; K31.84 Gastroparesis; G40.909 Epilepsy, unspecified, not intractable, without status epilepticus; D63.1 Anemia in chronic kidney disease; G43.909 Migraine, unspecified, not intractable, without status migrainosus; T86.12 Kidney transplant failure; G89.29 Other chronic pain; F32.9 Major depressive disorder, single episode, unspecified; N25.81 Secondary hyperparathyroidism of renal origin; E83.39 Other disorders of phosphorus metabolism; I48.0 Paroxysmal atrial fibrillation; I16.0 Hypertensive urgency; F17.200 Nicotine dependence, unspecified, uncomplicated; I25.10 Atherosclerotic heart disease of native coronary artery without angina pectoris; J90 Pleural effusion, not elsewhere classified; Z83.3 Family history of diabetes mellitus; Z99.2 Dependence on renal dialysis; Z91.14 Patient's other noncompliance with medication regimen; Z86.718 Personal history of other venous thrombosis and embolism; Z82.49 Family history of ischemic heart disease and other diseases of the circulatory system; Z79.01 Long term (current) use of anticoagulants; Y92.89 Other specified places as the place of occurrence of the external cause
CPT/HCPCS: 71045; 71250; 74176; 80053; 80069; 81003; 83605; 83690; 85025; 85027; 85610; 85730; 87040; 87070; 87205; 94799; 99281; 99285; J0360; J0881; J1956; J2270; J2405; J7030; Q0164